=== PATIENT | male | born 1990 | race Caucasian/White ===

== ENCOUNTER → 2020-03-13 12:36 | Outpatient (BNVA) | payer OTHER, SELFPAY | PROVIDERS: PCP Nurse Practitioner Family; Referring Provider Nurse Practitioner Family; Visit Provider Nurse Practitioner | DX: Z76.89 Persons encountering health services in other specified circumstances (principal) ==

== ENCOUNTER 2020-05-02 16:58 | Outpatient (REF) | payer OTHER, SELFPAY ==
--- NOTE | 2020-05-02 17:04 | XR_ITS ---
EXAMINATION: XR HAND, LEFT CLINICAL INFORMATION: Crush injury left thumb. COMPARISON: None TECHNIQUE: PA, lateral, and oblique views of the left hand. FINDINGS: The bones and soft tissues are normal. No fracture. Alignment is anatomic. Joint spaces are maintained. No erosions or soft tissue calcifications. XR/XR hand LT min 3V IMPRESSION: Unremarkable left thumb exam. Especially no fracture seen.
== END 2020-05-02 16:59 | disposition home or self-care (01) ==
LOC: HO.HMGCX 16:58
PROVIDERS: PCP Nurse Practitioner Family; Visit Provider Hospitalist
DX: S67.02XA Crushing injury of left thumb, initial encounter (principal)
CPT/HCPCS: 73130

== ENCOUNTER 2021-08-16 04:21 | Day surgery (SDC) | payer OTHER, SELFPAY ==
[2021-08-16] VITALS (19 sets, daily range): BP systolic 107–146; BP diastolic 52–95; PULSE 53–72; RESP 16–20; TEMP 36.3–37.1; O2SAT 96–100; BMI 22.9
--- NOTE | ~2021-08-16 | CT_ITS ---
EXAMINATION: CT ABDOMEN AND PELVIS WITH CONTRAST CLINICAL INFORMATION: Right lower quadrant pain. Rule out appendicitis. COMPARISON: 07/18/2019 TECHNIQUE: Multidetector volumetric images were obtained from the superior aspect of the liver through the pubic symphysis following administration 85 mL of Omnipaque 350 intravenous contrast. Sagittal and coronal reformatted images were obtained on the technologist's workstation. Oral contrast: No This CT examination was performed using dose optimization techniques as appropriate, variously including the following: *Automated exposure control *Adjustment of mA and/or kV according to patient size (this includes techniques or standardized protocols for targeted exams where dose is matched to indication/reason for exam; i.e. extremities or head) *Use of iterative reconstruction technique DLP: 478 mGy-cm FINDINGS: LUNG BASES: Minimal dependent atelectasis. LIVER, GALLBLADDER, AND BILIARY TREE: The liver is normal in size, shape, and attenuation. No focal hepatic lesion or biliary ductal dilatation is present. The gallbladder is unremarkable with no evidence of radiopaque gallstones, gallbladder wall thickening, or obvious pericholecystic inflammatory changes. PANCREAS: Unremarkable. SPLEEN: Unremarkable. ADRENAL GLANDS: Unremarkable. KIDNEYS AND URETERS: The kidneys are normal in size, shape, and attenuation. No hydronephrosis, hydroureter, or calculi seen. No perinephric stranding. BLADDER: Unremarkable. GASTROINTESTINAL TRACT: Stomach, small bowel, and colon are normal in caliber. No bowel wall thickening or surrounding inflammatory changes. Appendix is normal. No intraperitoneal free fluid or free air. Moderate stool volume. ABDOMINAL WALL: No significant hernia is appreciated. LYMPH NODES: Normal. VASCULAR: Unremarkable. PELVIC VISCERA: The prostate and seminal vesicles are unremarkable. OSSEOUS STRUCTURES: Unremarkable. CT/CT abdomen pelvis w con IMPRESSION: No acute abnormalities are identified in the abdomen and pelvis to correlate with the patient's symptoms. Normal appendix. Moderate volume of stool in the colon.
[2021-08-16 05:01] LABS: Basophils Percent Auto 0.5 % (0-2); Eosinophils Absolute Auto 0.1 X10*3/uL (0.0-0.4); Eosinophils Percent Auto 1.1 % (0-4); Hematocrit 39.3 % (42.0-52.0); Hemoglobin 13.8 g/dl (14.0-18.0); Imm Gran Abs Auto 0.02 X10*3/uL (0.00-0.03); Imm Gran Pct Auto 0.3 % (0.0-0.4); Lymphocytes Absolute Auto 1.9 X10*3/uL (1.2-4.9); Lymphocytes Percent Auto 29.6 % (20-40); MANUAL DIFF FLAG NO; Mean Corpuscular HGB Conc 35.1 g/dl (31.0-36.0); Mean Corpuscular Hemoglobin 29.9 pg (27.0-33.0); Mean Corpuscular Volume 85.1 fL (80.0-98.0); Monocytes Absolute Auto 0.5 X10*3/uL (0.1-1.2); Monocytes Percent Auto 7.5 % (2-11); Platelet Count 257 X10*3/uL (160-400); Red Blood Count 4.62 X10*6/uL (4.60-5.80); Red Cell Distribution Width 11.9 % (11.0-16.0); White Blood Count 6.5 X10*3/uL (4.8-10.8)
--- NOTE | 2021-08-16 05:02 | PC.NURSE ---
Assumed care of pt Pt c/o umbilical abdominal pain radiating to RLQ. Per pt, woke him up from his sleep around 0100 today. Pt has nausea but denies any vomiting/diarrhea/fevers Per pt, last ate last night and only been sipping on water overnight Will continue to monitor
[2021-08-16 05:18] LABS: Alanine Aminotransferase 73 U/L (0-40); Albumin Level 4.3 g/dL (3.5-5.0); Alkaline Phosphatase 74 U/L (39-117); Anion Gap 14 (12-20); Aspartate Amino Transferase 31 U/L (5-37); Bilirubin Total 0.6 mg/dL (0.0-1.0); Blood Urea Nitrogen 8 mg/dL (9-16); Calcium 8.9 mg/dL (8.4-10.2); Carbon Dioxide 26 mmol/L (22-29); Chloride 98 mmol/L (96-108); Creatinine Clr Calc Pharmacy 125.4; Estimated Glomerular Filt Rate > 60; Glucose Random 105 mg/dL (60-115); Lipase 7 U/L (8-78); Potassium 3.7 mmol/L (3.3-5.1); Sodium 134 mmol/L (135-145); Total Protein 6.6 g/dL (6.5-8.0)
--- NOTE | 2021-08-16 05:50 | ED.ABDPAIN ---
HPI - Abdominal Pain General Chief Complaint: Abdominal Pain Stated Complaint: stomach pain, nausea Time Seen by Provider: 08/16/21 05:35 Source: patient Mode of arrival: ambulatory Limitations: no limitations History of Present Illness HPI narrative: 30-year-old male who presents emergency department for evaluation of abdominal pain. The patient states the pain came on suddenly at 02:00 hours and woke him up from sleep. The patient points to his umbilical area when asked to localize the pain. He states pain is a constant, dull pain. The pain is 8/10. The pain is worse with movement. Pain is associated with nausea but no vomiting. He denied fever. He states he did have chills this morning. He denied sore throat, cough, shortness of breath, dyspnea on exertion. Denied any changes bowel movements. He denied changes urine. This is 1st episode of this type of pain. Patient states that he has had 2 COVID-19 Moderna vaccinations. Related Data Home Medications Medication Instructions Recorded Confirmed carbamazepine 200 mg 200 mg PO 02/27/20 05/02/20 tablet,extended release,12 hr wheat dextrin 5 gram/7.4 gram oral g PO BID-TID g 03/12/20 05/02/20 powder (Benefiber Healthy Shape) Previous Rx's Medication Instructions Recorded cephalexin 500 mg capsule (Keflex) 500 mg PO TID 7 Days #21 cap 05/02/20 oxycodone-acetaminophen 10 mg-325 1 tab PO Q6H PRN #15 tab 05/02/20 mg tablet (Percocet) doxycycline hyclate 100 mg capsule 100 mg PO BID 10 Days #20 cap 05/07/20 naproxen 500 mg tablet 500 mg PO BID PRN #60 tab 05/07/20 Allergies Allergy/AdvReac Type Severity Reaction Status Date / Time bee pollen [BEE STINGS] Allergy Severe ANAPHYLAXIS Verified 08/16/21 04:32 gluten [GLUTEN] Allergy Severe ANAPHYLAXIS Verified 08/16/21 04:32 Gluten Allergy Unknown Anaphylaxis Verified 08/16/21 04:32 Sulfa (Sulfonamide Allergy Unknown ANAPHYLAXIS Verified 08/16/21 04:32 Antibiotics) [SULFA (SULFONAMIDE ANTIBIOTICS)] benztropine [From COGENTIN] AdvReac Mild URINARY Verified 08/16/21 04:32 RETENTION Bee Stings Allergy Unknown Anaphylaxis Uncoded 08/16/21 04:32 bees Allergy Unknown anaphylaxis Uncoded 08/16/21 04:32 Sulfamethoxazole Allergy Unknown Anaphylaxis Uncoded 08/16/21 04:32 Review of Systems Review of Systems Yes all other systems are reviewed and are negative [facility] Past Medical History [facility] Narrative: Past medical history: Celiac disease, seizure disorder. Past surgical history: None. Social history: He denies tobacco use. He drinks alcohol 2 times a week, he drinks 1 or 2 rum and Cokes. He denies drug use Medical History Epilepsy Surgical History History of esophagogastroduodenoscopy (EGD) Hx of colonoscopy Family History Family History Mother Hypertension Father Epilepsy Sister No problems noted. Son No problems noted. 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 Physical Exam ED Vital Signs: Vital Signs - 24 hr 08/16/21 04:27 08/16/21 06:28 Temperature 98.8 F Pulse Rate 72 Respiratory Rate 18 16 Blood Pressure 140/81 H 107/52 L Pulse Oximetry 99 99 BMI result Body Mass Index 22.9 Const General: cooperative and no acute distress Orientation/consciousness: oriented to person and oriented to place Limitations: no limitations [facility] Head: Yes normal to inspection, Yes normocephalic and Yes atraumatic Ears: external ears normal General nose exam: Normal external nose present Face and sinus: Yes normal facial exam Mouth: Normal oral and palatal mucosa present Throat: Yes posterior oropharynx normal Eyes General: appearance normal, both eyes and all related structures Pupils: Equal, round and reactive pupils present Neck Neck: Yes normal visual inspection, Yes no lymphadenopathy, Yes trachea midline and Yes supple Chest Chest palpation & inspection: normal inspection of the chest and normal palpation of entire chest wall Resp Effort & Inspection: normal respiratory effort and able to speak in complete sentences Auscultation: clear to auscultation bilaterally Cardio Rate: regular rate Rhythm: regular rhythm Heart sounds: S1 normal heart sound present, S2 normal heart sound present and no murmurs GI Inspection: Yes normal to inspection Palpation (GI): Soft to palpation, Tenderness to palpation present (GI) in the RLQ (Moderate) and no guarding Auscultation: normal bowel sounds General: Yes no CVA tenderness Back/Spine/Pelvis Back: no CVA tenderness Skin General skin exam: no rashes or lesions noted Neuro General: oriented to person and oriented to place Cranial nerves: Yes CN's II-XII intact bilaterally and Yes Equal, round and reactive pupils present Cognition (Neuro): normal cognition Motor exam (neuro): 5/5 motor strength present throughout Extrem General: Yes normal to inspection Psych Appearance: grossly normal Speech and movement: Normal speech and movement present Affect: normal affect Attitude: cooperative Thought process: Normal thought process present Thought content: Normal thought content present Course Course Course Narrative: 30-year-old male who presents emergency department for evaluation of sudden onset periumbilical pain at 02:00 hours, the pain woke him from sleep, the pain in his 8/10 at its worst. This is the patient's 1st episode of this type of pain. Vital signs were unremarkable. Physical examination did reveal very localize right lower quadrant tenderness. Differential includes but is not limited to acute appendicitis, diverticulitis, ureteral stone, pancreatitis. Did order laboratory evaluation on the patient. Patient was also ordered to get normal saline IV x1 L, Toradol 15 mg IV and Zofran 4 mg IV. I also ordered a CT scan of the abdomen pelvis with IV contrast to rule out further evaluate the patient's pain. 0554: Laboratory evaluation: CBC was normal. Sodium low 134, ALT elevated 73, lipase normal. 0700: CT scan of the abdomen pelvis with IV contrast did not reveal any acute abnormalities, the radiologist felt the appendix was normal. Patient did feel better after the above treatment. Repeat physical examination however did reveal significant right lower quadrant tenderness and referred tenderness with palpation/release of the left lower quadrant. Given this finding, I am still concerned the patient may have appendicitis. I did discuss the patient's case with the covering surgeon, Dr. Estrada who agreed to see the patient in the emergency department. At the end of my shift, the patient's care was turned over to my colleague, Dr. Christina Lilly. MDM - Abdominal Pain Lab Data Result diagrams: 08/16/21 04:55 08/16/21 04:55 Labs: Lab Results 08/16/21 08/16/21 08/16/21 Range/Units 04:55 04:55 06:28 WBC 6.5 (4.8-10.8) X10*3/uL RBC 4.62 (4.60-5.80) X10*6/uL Hgb 13.8 L (14.0-18.0) g/dl Hct 39.3 L (42.0-52.0) % MCV 85.1 (80.0-98.0) fL MCH 29.9 (27.0-33.0) pg MCHC 35.1 (31.0-36.0) g/dl RDW 11.9 (11.0-16.0) % Plt Count 257 (160-400) X10*3/uL MPV 9.0 L (9.4-12.4) fL Immature Gran % (Auto) 0.3 (0.0-0.4) % Neut % (Auto) 61.0 (45-73) % Lymph % (Auto) 29.6 (20-40) % [place] % (Auto) 7.5 (2-11) % Eos % (Auto) 1.1 (0-4) % Baso % (Auto) 0.5 (0-2) % Lymph # (Auto) 1.9 (1.2-4.9) X10*3/uL [place] # (Auto) 0.5 (0.1-1.2) X10*3/uL Eos # (Auto) 0.1 (0.0-0.4) X10*3/uL Baso # (Auto) 0.0 (0.0-0.2) X10*3/uL Abs Immat Gran (auto) 0.02 (0.00-0.03) X10*3/uL Absolute Neuts (auto) 4.0 (2.0-8.3) x10*3/uL Absolute Nucleated RBC 0.000 (0.0-0.012) X10*3/uL Nucleated RBC % (auto) 0.0 (0.0-0.2) /100WBC Sodium 134 L (135-145) mmol/L Potassium 3.7 (3.3-5.1) mmol/L Chloride 98 (96-108) mmol/L Carbon Dioxide 26 (22-29) mmol/L Anion Gap 14 (12-20) BUN 8 L (9-16) mg/dL Creatinine 0.90 (0.5-1.4) mg/dL Estim Creat Clear Calc 125.4 Estimated GFR > 60 Random Glucose 105 (60-115) mg/dL Calcium 8.9 (8.4-10.2) mg/dL Total Bilirubin 0.6 (0.0-1.0) mg/dL AST 31 (5-37) U/L ALT 73 H (0-40) U/L Alkaline Phosphatase 74 (39-117) U/L Total Protein 6.6 (6.5-8.0) g/dL Albumin 4.3 (3.5-5.0) g/dL Lipase 7 L (8-78) U/L Urine Color Urine Appearance Urine pH (5.0-8.0) Ur Specific [place] (1.005-1.025) Urine Protein (NEG-TRACE) MG/DL Urine Glucose (UA) (NEG) MG/DL Urine Ketones (NEG) MG/DL Urine Blood (NEG) Urine Nitrite (NEG) Ur Leukocyte Esterase (NEG) COVID-19 (ROXANNE) Negative (Negative) COVID-19 Clin Com See Note 08/16/21 Range/Units 07:01 WBC (4.8-10.8) X10*3/uL RBC (4.60-5.80) X10*6/uL Hgb (14.0-18.0) g/dl Hct (42.0-52.0) % MCV (80.0-98.0) fL MCH (27.0-33.0) pg MCHC (31.0-36.0) g/dl RDW (11.0-16.0) % Plt Count (160-400) X10*3/uL MPV (9.4-12.4) fL Immature Gran % (Auto) (0.0-0.4) % Neut % (Auto) (45-73) % Lymph % (Auto) (20-40) % [place] % (Auto) (2-11) % Eos % (Auto) (0-4) % Baso % (Auto) (0-2) % Lymph # (Auto) (1.2-4.9) X10*3/uL [place] # (Auto) (0.1-1.2) X10*3/uL Eos # (Auto) (0.0-0.4) X10*3/uL Baso # (Auto) (0.0-0.2) X10*3/uL Abs Immat Gran (auto) (0.00-0.03) X10*3/uL Absolute Neuts (auto) (2.0-8.3) x10*3/uL Absolute Nucleated RBC (0.0-0.012) X10*3/uL Nucleated RBC % (auto) (0.0-0.2) /100WBC Sodium (135-145) mmol/L Potassium (3.3-5.1) mmol/L Chloride (96-108) mmol/L Carbon Dioxide (22-29) mmol/L Anion Gap (12-20) BUN (9-16) mg/dL Creatinine (0.5-1.4) mg/dL Estim Creat Clear Calc Estimated GFR Random Glucose (60-115) mg/dL Calcium (8.4-10.2) mg/dL Total Bilirubin (0.0-1.0) mg/dL AST (5-37) U/L ALT (0-40) U/L Alkaline Phosphatase (39-117) U/L Total Protein (6.5-8.0) g/dL Albumin (3.5-5.0) g/dL Lipase (8-78) U/L Urine Color STRAW Urine Appearance CLEAR Urine pH 7.0 (5.0-8.0) Ur Specific [place] <= 1.005 (1.005-1.025) Urine Protein NEG (NEG-TRACE) MG/DL Urine Glucose (UA) NEG (NEG) MG/DL Urine Ketones NEG (NEG) MG/DL Urine Blood NEG (NEG) Urine Nitrite NEG (NEG) Ur Leukocyte Esterase NEG (NEG) COVID-19 (ROXANNE) (Negative) COVID-19 Clin Com Discharge Plan Discharge Clinical Impression: Abdominal pain Patient Disposition: Still a Patient Prescriptions: No Action carbamazepine 200 mg tablet extended release 12 hr 200 mg PO 0RF cephalexin [Keflex] 500 mg capsule 500 mg PO TID 7 Days Qty: 21 0RF oxycodone-acetaminophen [Percocet] 10-325 mg tablet 1 tab PO Q6H PRN (Reason: pain) Qty: 15 0RF doxycycline hyclate 100 mg capsule 100 mg PO BID 10 Days Qty: 20 0RF naproxen 500 mg tablet 500 mg PO BID PRN (Reason: pain) Qty: 60 0RF Benefiber Healthy Shape 5 gram/7.4 gram powder PO BID-TID 0RF
[2021-08-16] MEDS: Ketorolac Tromethamine 15 MG/ML VIAL IVPUSH (05:59)
[2021-08-16] MEDS: 0.9 % Sodium Chloride 1,000 ML 999 ML IV (05:59)
[2021-08-16] MEDS: ondansetron HCL 4 MG/2 ML VIAL IVPUSH ×3 (05:59→13:55)
[2021-08-16] MEDS: iohexoL 350 MG/ML 100 ML INFUS..BTL IV (06:21)
[2021-08-16 06:48] LABS: COVID-19 Test Negative (Negative)
[2021-08-16 07:08] LABS: Appearance Urine CLEAR; Color Urine STRAW; Glucose Urine UA NEG (NEG); Leukocyte Esterase Urine NEG (NEG); Nitrite Urine NEG (NEG); Specific Gravity - Urine <= 1.005 (1.005-1.025); Urine Blood NEG (NEG); Urine Ketones NEG (NEG); Urine Protein NEG (NEG-TRACE)
[2021-08-16] MEDS: Morphine Sulfate 4 MG/ML CARTRIDGE IVPUSH (07:51)
--- NOTE | 2021-08-16 07:53 | P.HPGS_ITS ---
History of Present Illness History of Present Illness Date of Service: 08/16/21 Chief complaint: stomach pain, nausea Narrative: Jesus Lauren is a 30 year old male presemting with a sudden onset of abdominal pain in a periumbilical region at 2 am this morning. The pain has increased in severity and was associated with nausea without vomiting. He also reports chills but is unsure of fever. He denies a previous history of similar pain. He denies anorexia, diarrhea or constipation. Workup in the ED revealed pain over McBurney's point, Rovsing's sign, and rebound tenderness in the RLQ. WBC normal, CT abd/pelvis with normal appendix. Review of Systems Constitutional: Constitutional: Denies chills, Denies fever(s), Denies headache(s) and Denies poor appetite ENT: Denies dizziness and Denies headache(s) Cardiovascular: Cardiovascular: Denies chest pain, Denies rapid heart rate, Denies palpitations and Denies slow heart rate Respiratory: Respiratory: Denies chest congestion, Denies cough, Denies pain on inspiration and Denies wheezing Gastrointestinal: Gastrointestinal: Reports abdominal pain, Denies bloating, Denies change in stool character, Denies constipation, Denies diarrhea, Reports nausea, Denies vomiting and Denies hematemesis Musculoskeletal: Musculoskeletal: Denies back pain, Denies arthralgias, Denies joint swelling and Denies numbness Integumentary/Breasts: Skin/Breast: Denies change in pigmentation, Denies erythema and Denies rash Neurologic: Denies dizziness, Denies headache(s) and Denies numbness Psychiatric: Psychiatric: Denies anxiety and Denies depression Endocrine: Endocrine: Denies palpitations Hematologic/Lymphatic: Hematologic/Lymphatic: Denies easy bleeding, Denies easy bruising and Denies lymphadenopathy Allergic/Immunologic: Allergic/Immunologic: Denies wheezing PMFSH Past Medical History Medical History Epilepsy Family History Family History Mother Hypertension Father Epilepsy Sister No problems noted. Son No problems noted. 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 Meds Allergies Allergy/AdvReac Type Severity Reaction Status Date / Time bee pollen [BEE STINGS] Allergy Severe ANAPHYLAXIS Verified 08/16/21 04:32 gluten [GLUTEN] Allergy Severe ANAPHYLAXIS Verified 08/16/21 04:32 Gluten Allergy Unknown Anaphylaxis Verified 08/16/21 04:32 Sulfa (Sulfonamide Allergy Unknown ANAPHYLAXIS Verified 08/16/21 04:32 Antibiotics) [SULFA (SULFONAMIDE ANTIBIOTICS)] benztropine [From COGENTIN] AdvReac Mild URINARY Verified 08/16/21 04:32 RETENTION Bee Stings Allergy Unknown Anaphylaxis Uncoded 08/16/21 04:32 bees Allergy Unknown anaphylaxis Uncoded 08/16/21 04:32 Sulfamethoxazole Allergy Unknown Anaphylaxis Uncoded 08/16/21 04:32 Home Medications Medication Instructions Recorded Confirmed Last Taken Type carbamazepine 200 mg 200 mg PO 02/27/20 05/02/20 Unknown History tablet,extended release,12 hr wheat dextrin 5 gram/7.4 gram oral g PO BID-TID g 03/12/20 05/02/20 Unknown History powder (Benefiber Healthy Shape) Physical Exam Vital Signs: Vital Signs: Last Vital Signs Temp 98.8 F 08/16/21 04:27 Pulse 72 08/16/21 04:27 Resp 16 08/16/21 06:28 BP 107/52 L 08/16/21 06:28 Pulse Ox 99 08/16/21 06:28 BMI result Body Mass Index 22.9 Const: General: cooperative, comfortable and well developed Nutritional Appearance: well nourished Orientation/consciousness: patient oriented x3 Eyes: Sclerae: sclerae normal EOM: EOMs intact bilaterally Neck: Neck: Yes normal visual inspection Resp: Effort & Inspection: normal respiratory effort, no cough, no respiratory distress and no stridor Cardio: Jugular venous distension: no JVD GI: Inspection: Yes normal to inspection Palpation (GI): Soft to palpation, Tenderness to palpation present (GI) in the RLQ, at McBurney's point, psoas sign positive, with rebound tenderness and Rovsing's sign positive, no guarding, not rigid, No hepatosplenomegaly present and no masses Percussion: Yes normal to percussion Auscultation: normal bowel sounds Rectal Exam - Male: Yes deferred Skin: General skin exam: dry skin Rashes: no rashes Neuro: General: patient oriented x3 and no focal motor deficits Extrem: General: Yes full ROM and Yes no clubbing, cyanosis or edema Psych: Appearance: grossly normal Results Results Labs: Short CBC 08/16/21 Range/Units 04:55 WBC 6.5 (4.8-10.8) X10*3/uL Hgb 13.8 L (14.0-18.0) g/dl Hct 39.3 L (42.0-52.0) % Plt Count 257 (160-400) X10*3/uL BMP 08/16/21 04:55 Sodium 134 L Potassium 3.7 Chloride 98 Carbon Dioxide 26 BUN 8 L Creatinine 0.90 Calcium 8.9 Liver Function 08/16/21 Range/Units 04:55 Total Bilirubin 0.6 (0.0-1.0) mg/dL AST 31 (5-37) U/L ALT 73 H (0-40) U/L Alkaline Phosphatase 74 (39-117) U/L Albumin 4.3 (3.5-5.0) g/dL Urine 08/16/21 Range/Units 07:01 Urine Color STRAW Urine Appearance CLEAR Urine pH 7.0 (5.0-8.0) Ur Specific [place] <= 1.005 (1.005-1.025) Urine Protein NEG (NEG-TRACE) MG/DL Urine Glucose (UA) NEG (NEG) MG/DL Assessment and Plan (1) Abdominal pain: Qualifiers: Abdominal location: right lower quadrant Qualified Code(s): R10.31 - Right lower quadrant pain Status: Acute (2) Acute appendicitis: Status: Acute Plan 30-year-old male patient presenting with complaints of abdominal pain in the right lower quadrant starting in a periumbilical region. Patient's workup was negative however his clinical examination is definitely significant for loc alized rebound with a positive Rovsing sign highly suggestive of early appendicitis. Patient was given the option of non operative management with antibiotics versus surgery (laparoscopic or possible open appendectomy). He is concerned about the severity of his pain and wishes to proceed with a laparoscopic or possible open appendectomy. After discussion of the procedure, risks, and alternatives, he consents the surgery. He will be added onto the operative schedule today. I will start him on antibiotics in meantime. Quality Stroke Does the patient have a stroke diagnosis?: No VTE Prior VTE?: No VTE Risk Level:: Surgical - moderate VTE Device Contraindication: N/A - Device Ordered VTE Drug Contraindication: Treatment Not Indicated Procedures Date of Service Date of Service: 08/16/21
[2021-08-16] MEDS: Piperacillin Sodium/Tazobactam 3.375 GM in 0.9 % Sodium Chloride 50 ML IV (08:26)
--- NOTE | 2021-08-16 08:33 | PHA.MEDREC ---
Pharmacy Consult ? Medication Reconciliation Pharmacy has completed the medication reconciliation.
[2021-08-16] MEDS: carBAMazepine ER 200 MG TAB.ER.12H 600 MG PO (08:50)
[2021-08-16] MEDS: Lactated Ringers 1,000 ML 100 ML IVCONT ×2 (09:19→16:40)
[2021-08-16] MEDS: HYDROmorphone HCl 0.5 MG/0.5 ML SYRINGE IVPUSH ×3 (10:46→21:41)
--- NOTE | 2021-08-16 11:34 | PC.NURSE ---
patient a&ox3, vss, pt c/o 09/29 rt lower quad abd pain, pt states that the pain meds helped reduce his pain to a 5, pt medicated for nausea per his request, ivf running per order, surgeon came to speak with patient, pt states his is on her way, call donis within reach, will continue to monitor.
--- NOTE | 2021-08-16 12:09 | HO.ANESPROP2 ---
[facility] Active Problems Active Problems: All Active Problems (Updated 08/16/21 @ 07:57 by Gustavo Estrada MD) Acute appendicitis (Acute) Abdominal pain (Acute) Subungual hematoma of digit of hand (Acute) Acute paronychia of left thumb (Acute) Crushing injury of left thumb (Acute) History of Clostridioides difficile colitis (Acute) Right sided abdominal pain (Acute) Irritable bowel syndrome with both constipation and diarrhea (Acute) Celiac disease (Acute) Concussion (Acute) Past Medical History Medical History Epilepsy Family History Family History Mother Hypertension Father Epilepsy Sister No problems noted. Son No problems noted. 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 Meds Allergies Allergy/AdvReac Type Severity Reaction Status Date / Time bee pollen [BEE STINGS] Allergy Severe ANAPHYLAXIS Verified 08/16/21 04:32 gluten [GLUTEN] Allergy Severe ANAPHYLAXIS Verified 08/16/21 04:32 Gluten Allergy Unknown Anaphylaxis Verified 08/16/21 04:32 Sulfa (Sulfonamide Allergy Unknown ANAPHYLAXIS Verified 08/16/21 04:32 Antibiotics) [SULFA (SULFONAMIDE ANTIBIOTICS)] benztropine [From COGENTIN] AdvReac Mild URINARY Verified 08/16/21 04:32 RETENTION Bee Stings Allergy Unknown Anaphylaxis Uncoded 08/16/21 04:32 bees Allergy Unknown anaphylaxis Uncoded 08/16/21 04:32 Sulfamethoxazole Allergy Unknown Anaphylaxis Uncoded 08/16/21 04:32 Active Medications: Current Medications Hydromorphone HCl (Hydromorphone Hcl 0.5 Mg/0.5 Ml Syringe) 0.5 mg IVPUSH Q3H PRN; Protocol PRN Reason: Pain, Severe (Pain Scale 7-10) Last Admin: 08/16/21 10:46 Dose: 0.5 mg Documented by: Lactated Ringer's (Lr) 1,000 mls @ 100 mls/hr IVCONT .Q10H [facility] Last Admin: 08/16/21 09:19 Dose: 100 mls/hr Documented by: Acetaminophen (Ofirmev) 1,000 mg in 100 mls @ 400 mls/hr IV Q6H [facility] Last Infusion: 08/16/21 09:07 Dose: Infused Documented by: Piperacillin Sod/Tazobactam (Sod 3.375 gm/ Sodium Chloride) 50 mls @ 100 mls/hr IV Q6H [facility] Last Infusion: 08/16/21 08:56 Dose: Infused Documented by: Ondansetron HCl (Ondansetron Hcl 4 Mg/2 Ml Vial) 4 mg IVPUSH QID PRN PRN Reason: Nausea Last Admin: 08/16/21 11:30 Dose: 4 mg Documented by: Pharmacy Consult (Consult Rx Perform Med Rec) 1 each MISCELLANE ONCE PRN PRN Reason: Consult order Home Medications Medication Instructions Recorded Confirmed Last Taken Type carbamazepine 200 mg 600 mg PO DAILY@0600 02/27/20 08/16/21 08/15/21 History tablet,extended release,12 hr carbamazepine 200 mg 800 mg PO DAILY@1800 08/16/21 08/16/21 08/15/21 History tablet,extended release,12 hr Exam Exam Date and Time: August 16, 2021 1209 Height,Weight and Vital Signs: Height 5 ft 10 in Weight 72.575 kg Last Vital Signs Temp 98.2 F 08/16/21 11:32 Pulse 53 08/16/21 11:32 Resp 16 08/16/21 11:32 BP 109/57 L 08/16/21 11:32 Pulse Ox 98 08/16/21 11:32 Pertinent Lab Results Pertinent Lab Results: Laboratory Tests 08/16/21 08/16/21 08/16/21 04:55 04:55 06:28 WBC 6.5 RBC 4.62 Hgb 13.8 L Hct 39.3 L MCV 85.1 MCH 29.9 MCHC 35.1 RDW 11.9 Plt Count 257 MPV 9.0 L Immature Gran % (Auto) 0.3 Neut % (Auto) 61.0 Lymph % (Auto) 29.6 [place] % (Auto) 7.5 Eos % (Auto) 1.1 Baso % (Auto) 0.5 Lymph # (Auto) 1.9 [place] # (Auto) 0.5 Eos # (Auto) 0.1 Baso # (Auto) 0.0 Abs Immat Gran (auto) 0.02 Absolute Neuts (auto) 4.0 Absolute Nucleated RBC 0.000 Nucleated RBC % (auto) 0.0 Sodium 134 L Potassium 3.7 Chloride 98 Carbon Dioxide 26 Anion Gap 14 BUN 8 L Creatinine 0.90 Estim Creat Clear Calc 125.4 Estimated GFR > 60 Random Glucose 105 Calcium 8.9 Total Bilirubin 0.6 AST 31 ALT 73 H Alkaline Phosphatase 74 Total Protein 6.6 Albumin 4.3 Lipase 7 L Urine Color Urine Appearance Urine pH Ur Specific Briggs Urine Protein Urine Glucose (UA) Urine Ketones Urine Blood Urine Nitrite Ur Leukocyte Esterase COVID-19 (ROXANNE) Negative COVID-19 Clin Com See Note 08/16/21 07:01 WBC RBC Hgb Hct MCV MCH MCHC RDW Plt Count MPV Immature Gran % (Auto) Neut % (Auto) Lymph % (Auto) [place] % (Auto) Eos % (Auto) Baso % (Auto) Lymph # (Auto) [place] # (Auto) Eos # (Auto) Baso # (Auto) Abs Immat Gran (auto) Absolute Neuts (auto) Absolute Nucleated RBC Nucleated RBC % (auto) Sodium Potassium Chloride Carbon Dioxide Anion Gap BUN Creatinine Estim Creat Clear Calc Estimated GFR Random Glucose Calcium Total Bilirubin AST ALT Alkaline Phosphatase Total Protein Albumin Lipase Urine Color STRAW Urine Appearance CLEAR Urine pH 7.0 Ur Specific Briggs <= 1.005 Urine Protein NEG Urine Glucose (UA) NEG Urine Ketones NEG Urine Blood NEG Urine Nitrite NEG Ur Leukocyte Esterase NEG COVID-19 (ROXANNE) COVID-19 Clin Com Airway Mallampati Class: II TM Dist: >3cm Neck ROM: Full Assessment and Plan Assessment Anesthesia Assessment: Anesthesia Plan Discussed and Chart Reviewed Final Anesthetic Review Family History of Problems with Anesthesia: No History of Problems with Anesthesia: No NPO: Yes ASA Class: II and Emergency Final Preanesthetic Review: No Changes in Pt Med Stat, Meds/Allgs Chart Reviewed, Consent Obtained/Reviewed and Anes Risks/Benef Reviewed Patient Risk: Intermediate Procedure Risk: Intermediate Anesthetic Plan Anesthetic Plan: GA Disposition: Standard PACU
--- NOTE | 2021-08-16 12:22 | PC.NURSE ---
pt changed into hospital gown, arrived at bedside to take belongings home, tech completed belongings list w pt, flds restarted, pt transporting to OR.
--- NOTE | 2021-08-16 13:30 | P.OP_ITS ---
Operative Note Operative Note Date of Service: 08/16/21 Narrative: Preoperative diagnosis: Acute appendicitis Postoperative diagnosis: Same Procedure: Laparoscopic appendectomy Surgeon: Gustavo Estrada MD Supervisor Waterproofing:none Anesthesia: General endotracheal Indications for procedure:30 year old male patient presenting with complaints of abdominal pain in the periumbilical and right lower quadrant abdomen. Patient's workup revealed negative WBC and negative CT however his examination revealed tenderness in the right lower quadrant over McBurney's point with localized rebound suggestive of acute appendicitis. Patient was given the option of antibiotics verses laparoscopic appendectomy and decided to proceed with laparoscopic appendectomy. Operative findings: Long appendix with the tip that seemed moderately thickened and adherent to the cecum suggestive of early appendicitis Specimen: Appendix Estimated blood loss: 2 mL Complications: None Procedure details: Patient was brought to the OR and placed in a supine position. After administering general anesthesia the patient's abdomen was prepped with ChloraPrep and draped in a sterile fashion. A surgical time-out was called and consent confirmed. Patient received preoperative antibiotics and Venodyne boots were in place. Local anesthesia consisting of 0.75% Sensorcaine with epinephrine was infiltrated in periumbilical region. A 5 mm incision was made below the umbilicus and carried down through subcutaneous tissue. A Veress needle was then inserted while elevating abdominal cavity with towel clips. After a positive drop test the abdomen was insufflated to a pressure of 15 mm of mercury. The Veress needle was removed and a 5 mm trocar inserted. The camera was then inserted in the abdomen explored. A 2nd 5 mm trocars placed in the lower midline. A 12 mm trocar was then placed in the left lower quadrant. The patient was then placed in a Trendelenburg position and rotated to the left. The appendix was identified in the right lower quadrant and brought up using blunt dissecting clamps. The mesentery of the appendix was then divided using the LigaSure. The appendiceal artery was cauterized and divided using the LigaSure. Dissection was continued down to the base of the cecum. An Endo-ANA stapler with a purple reload was then used to divide the appendix at the base with the cecum. The appendix was then placed in Endo-Catch bag and brought out through the left lower quadrant incision. Wounds were checked for hemostasis. CO2 was then evacuated from the abdominal cavity and all trocars removed. Fascia was closed in the left lower quadrant incision using a [id number] 0 Polysorb suture. Skin was closed at all incisions using a subcuticular 4-0 Polysorb suture. Steri-Strips 2 x 2 gauze and Tegaderm were then applied. The patient tolerated the procedure well. Sponge, instrument, needle counts reported as correct. The patient was transferred to PACU in stable condition.
[2021-08-16] MEDS: fentaNYL citrate/PF 100 MCG/2 ML VIAL 50 MCG IVPUSH (14:02)
[2021-08-16] MEDS: oxyCODONE HCl Immed Release 5 MG TABLET PO (16:48)
[2021-08-16] MEDS: carBAMazepine ER 200 MG TAB.ER.12H 800 MG PO (17:55)
[2021-08-17] VITALS: BP 105/53; PULSE 76; RESP 19; TEMP 36.4; O2SAT 98
[2021-08-17] MEDS: oxyCODONE HCl Immed Release 5 MG TABLET PO (01:52)
[2021-08-17] MEDS: Lactated Ringers 1,000 ML 100 ML IVCONT (01:52)
[2021-08-17 03:28] VITALS: BP 119/58; PULSE 76; RESP 18; TEMP 36.8; O2SAT 98
[2021-08-17] MEDS: HYDROmorphone HCl 0.5 MG/0.5 ML SYRINGE IVPUSH ×3 (04:17→14:10)
[2021-08-17] MEDS: carBAMazepine ER 200 MG TAB.ER.12H 600 MG PO (05:37)
[2021-08-17 07:09] VITALS: BP 120/69; PULSE 67; RESP 18; TEMP 36.3; O2SAT 98
--- NOTE | 2021-08-17 09:32 | HO.POSTANES ---
Post Anesthesia Evaluation Post Anesthesia Evaluation Vital Signs: Vital Signs Temp Pulse Resp BP Pulse Ox 08/17/21 07:09 97.4 F 67 18 120/69 98 08/17/21 03:28 98.3 F 76 18 119/58 L 98 08/17/21 00:00 97.6 F 76 19 105/53 L 98 08/16/21 21:42 65 20 107/58 L 08/16/21 21:41 20 Anesthesia: General Endotracheal-GETA Mental Status: Awake Pain Control: Satisfactory Nausea/Vomiting: None Hydration: Adequate Anesthesia-Related Issues: No Anes. Related Issues
[2021-08-17] MEDS: oxyCODONE HCl Immed Release 5 MG TABLET 10 MG PO (11:16)
--- NOTE | 2021-08-17 11:32 | MHC.CLN ---
NUTRITION PATIENT WITH DX CELIAC. HAS GLUTEN ALLERGY LISTED. ADDED GLUTEN-FREE TO DIET ORDER.
--- NOTE | 2021-08-17 11:33 | MHC.CM.PN ---
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 DISCHARGE PLAN HOME WIHT HIS NO SERVICES TRANSPORTATION FAMILY APPENDECTOMY, PCP FOR[facility]LY [facility]
--- NOTE | 2021-08-17 11:35 | PM.PNGS ---
Subjective Subjective Date of Service: 08/17/21 Interval history: Sore at incision sites- oxycodone 5mg not relieving. Tolerating diet. OOB and ambulating. Asking to go home. Physical Exam Vital Signs: Vital Signs: Last Vital Signs Temp 97.4 F 08/17/21 07:09 Pulse 67 08/17/21 07:09 Resp 18 08/17/21 07:09 BP 120/69 08/17/21 07:09 Pulse Ox 98 08/17/21 07:09 BMI result Body Mass Index 22.9 Const: General: comfortable, no acute distress and alert Orientation/consciousness: patient oriented x3 Resp: Effort & Inspection: normal respiratory effort GI: Inspection: No distended and Yes incision (dressings intact) Palpation (GI): Soft to palpation, Tenderness to palpation present (GI) (incisional), no guarding and not rigid Percussion: Yes normal to percussion Skin: General skin exam: no rashes or lesions noted Neuro: General: patient oriented x3 Extrem: General: Yes normal exam except as noted and Yes no clubbing, cyanosis or edema Objective Data Active Medications Carbamazepine (Carbamazepine Er 200 Mg Tab.Er.12h) 800 mg PO DAILY@1800 [facility] Last Admin: 08/16/21 17:55 Dose: 800 mg Documented by: SABINA Carbamazepine (Carbamazepine Er 200 Mg Tab.Er.12h) 600 mg PO DAILY@0600 [facility] Last Admin: 08/17/21 05:37 Dose: 600 mg Documented by: MARCK Hydromorphone HCl (Hydromorphone Hcl 0.5 Mg/0.5 Ml Syringe) 0.5 mg IVPUSH Q3H PRN; Protocol PRN Reason: Pain, Severe (Pain Scale 7-10) Last Admin: 08/17/21 08:41 Dose: 0.5 mg Documented by: ISABEL Lactated Ringer's (Lr) 1,000 mls @ 100 mls/hr IVCONT .Q10H [facility] Last Admin: 08/17/21 01:52 Dose: 100 mls/hr Documented by: MARCK Acetaminophen (Ofirmev) 1,000 mg in 100 mls @ 400 mls/hr IV Q6H [facility] Last Admin: 08/17/21 11:20 Dose: 400 mls/hr Documented by: ISABEL Ondansetron HCl (Ondansetron Hcl 4 Mg/2 Ml Vial) 4 mg IVPUSH QID PRN PRN Reason: Nausea Last Admin: 08/16/21 11:30 Dose: 4 mg Documented by: ANGELITA Oxycodone HCl (Oxycodone Hcl Immed Release 5 Mg Tablet) 5 mg PO Q6H PRN PRN Reason: Pain, Moderate (Pain Scale 4-6 Last Admin: 08/17/21 01:52 Dose: 5 mg Documented by: MARCK Oxycodone HCl (Oxycodone Hcl Immed Release 5 Mg Tablet) 10 mg PO Q4H PRN PRN Reason: Pain, Severe (Pain Scale 7-10) Last Admin: 08/17/21 11:16 Dose: 10 mg Documented by: ISABEL Pharmacy Consult (Consult Rx Perform Med Rec) 1 each MISCELLANE ONCE PRN PRN Reason: Consult order Labs CBC & Chem 7: 08/16/21 04:55 08/16/21 04:55 Procedures Date of Service Date of Service: 08/17/21 Progress Note: A&P Assessment and plan (1) Acute appendicitis: Status: Acute (2) S/P laparoscopic appendectomy: Status: Acute Plan 30 year old male admitted with acute appendicitis now POD #1 s/p lap appy. Doing well post op. Does c/o pain unrelieved by 5mg oxycodone. VSS. Abd exam with appropriate post op tenderness, dressings intact. Will adjust analgesics. If comfortable, stable for discharge to home today. Patient comfortable with plan. F/u in office. Fall Risk Details Current Medications: Current Medications Carbamazepine (Carbamazepine Er 200 Mg Tab.Er.12h) 800 mg PO DAILY@1800 [facility] Last Admin: 08/16/21 17:55 Dose: 800 mg Documented by: Carbamazepine (Carbamazepine Er 200 Mg Tab.Er.12h) 600 mg PO DAILY@0600 [facility] Last Admin: 08/17/21 05:37 Dose: 600 mg Documented by: Hydromorphone HCl (Hydromorphone Hcl 0.5 Mg/0.5 Ml Syringe) 0.5 mg IVPUSH Q3H PRN; Protocol PRN Reason: Pain, Severe (Pain Scale 7-10) Last Admin: 08/17/21 08:41 Dose: 0.5 mg Documented by: Lactated Ringer's (Lr) 1,000 mls @ 100 mls/hr IVCONT .Q10H [facility] Last Admin: 08/17/21 01:52 Dose: 100 mls/hr Documented by: Acetaminophen (Ofirmev) 1,000 mg in 100 mls @ 400 mls/hr IV Q6H [facility] Last Admin: 08/17/21 11:20 Dose: 400 mls/hr Documented by: Ondansetron HCl (Ondansetron Hcl 4 Mg/2 Ml Vial) 4 mg IVPUSH QID PRN PRN Reason: Nausea Last Admin: 08/16/21 11:30 Dose: 4 mg Documented by: Oxycodone HCl (Oxycodone Hcl Immed Release 5 Mg Tablet) 5 mg PO Q6H PRN PRN Reason: Pain, Moderate (Pain Scale 4-6 Last Admin: 08/17/21 01:52 Dose: 5 mg Documented by: Oxycodone HCl (Oxycodone Hcl Immed Release 5 Mg Tablet) 10 mg PO Q4H PRN PRN Reason: Pain, Severe (Pain Scale 7-10) Last Admin: 08/17/21 11:16 Dose: 10 mg Documented by: Pharmacy Consult (Consult Rx Perform Med Rec) 1 each MISCELLANE ONCE PRN PRN Reason: Consult order Time Spent With Patient Time: Total time spent is greater than 50% in coordination of care (as documented) at patient's floor/unit and/or counseling patient: Quality Stroke Does the patient have a stroke diagnosis?: No VTE Prior VTE?: No VTE Risk Level:: Surgical - moderate VTE Device Contraindication: N/A - Device Ordered VTE Drug Contraindication: Treatment Not Indicated
[2021-08-17 11:45] VITALS: BP 123/76; PULSE 69; RESP 18; TEMP 36.6; O2SAT 99
--- NOTE | 2021-08-17 12:46 | PM.DS ---
DS: Providers Provider Date of Service: 08/17/21 Primary care physician: Unknown Physician Attending physician on admission: Gustavo Estrada DS: Diagnosis Discharge Diagnosis (1) Acute appendicitis: Status: Acute (2) S/P laparoscopic appendectomy: Status: Acute DS: Summary Hospital Course Hospital Course: BRIEF HPI: Jesus Lauren is a 30 year old male presemting with a sudden onset of abdominal pain in a periumbilical region at 2 am this morning. The pain has increased in severity and was associated with nausea without vomiting. He also reports chills but is unsure of fever. He denies a previous history of similar pain. He denies anorexia, diarrhea or constipation. Workup in the ED revealed pain over McBurney's point, Rovsing's sign, and rebound tenderness in the RLQ. WBC normal, CT abd/pelvis with normal appendix. HOSPITAL COURSE: His workup was negative however his clinical examination is definitely significant for localized rebound with a positive Rovsing sign highly suggestive of early appendicitis. The patient was therefore admitted to the surgical service for further treatment of likely early acute appendicitis. Patient was given the option of non operative management with antibiotics versus surgery (laparoscopic or possible open appendectomy). He was added onto the operative schedule today. He was started on IVF, IV zosyn and kept NPO. On 08/16/21, a laparoscopic appendectomy was performed by Dr. Estrada without complication. Intraoperative findings included a long appendix with the tip that seemed moderately thickened and adherent to the cecum suggestive of early appendicitis. The patient tolerated the procedure well, completed routine recovery and was admitted for observation. The patient had an uncomplicated post operative course. On POD #1 he felt well and was tolerating a solid diet. His abdomen was benign with appropriate post op tenderness. His dressings were intact. He was comfortable pain castillo with oxycodone 10mg PO. He was ambulating without difficulty. He felt ready for discharge. He was discharged to home on 08/17/21 in stable condition. Status at Discharge Functional status at discharge: independent ambulation Overall status at discharge: patient is progressing back to baseline Time Spent with Patient Time attestation: Total time spent providing and/or coordinating discharge services: Discharge coordination time: Less than 30 minutes Quality: Stroke Does the patient have a stroke diagnosis?: No Physical Exam Vital Signs: Vital Signs: Last Vital Signs Temp 98 F 08/17/21 11:45 Pulse 69 08/17/21 11:45 Resp 18 08/17/21 11:45 BP 123/76 08/17/21 11:45 Pulse Ox 99 08/17/21 11:45 BMI result Body Mass Index 22.9 Const: General: comfortable, no acute distress and alert Orientation/consciousness: patient oriented x3 Resp: Effort & Inspection: normal respiratory effort GI: Inspection: No distended and Yes incision (dressings intact) Palpation (GI): Soft to palpation, Tenderness to palpation present (GI) (mild, incisional), no guarding and not rigid Skin: General skin exam: no rashes or lesions noted Neuro: General: patient oriented x3 Extrem: General: Yes no clubbing, cyanosis or edema DS: Data Data Completed and Pending Pending studies at discharge: Pending at discharge 08/16/21 13:16 Surgical [PTH] Routine Discharge Plan Discharge Patient Disposition: Home, Self-Care Referrals: Gustavo Estrada MD [Physician] - 2 Weeks PhysicianJanak [Primary Care Provider] - 1 Week Discharge Medications: New ondansetron 8 mg tablet,disintegrating 8 mg PO Q8H PRN (Reason: nausea and vomiting) Qty: 20 0RF docusate sodium [Colace] 100 mg capsule 100 mg PO BID PRN (Reason: constipation) Qty: 30 0RF oxycodone 5 mg tablet 5 mg PO Q4H PRN (Reason: pain (scale score 7-10)) Qty: 30 0RF Continued carbamazepine 200 mg tablet extended release 12 hr 800 mg PO DAILY@1800 0RF carbamazepine 200 mg tablet extended release 12 hr 600 mg PO DAILY@0600 0RF Discharge Orders: Discharge Order (Routine); Ordered 08/17/21 Ordered By: Emely Meza Activity Restrictions/Additional Instructions: No lifting > 10 pounds for 2 weeks No driving for one week Ice to the incision x 24 hours Ok to shower. Remove dressing in 3 days. Follow up in office with Dr. Estrada in 1 week. ([phone]) Call Your Doctor If: ? ? -Your temperature exceeds 101.5? F? ? ? -You experience excessive pain or swelling ? ? -You have an unexpected reaction to medication ? ? -You have excessive bleeding ? ? -You experience continued vomiting/nausea ? ? -Your incision begins to separate ?? ? -Your incision shows signs of infection such as increased redness, swelling, excessive pain, drainage (light blood or clear fluid is normal) or heat Discharge Date/Time: 08/17/21 15:28
== END 2021-08-17 15:28 | disposition home or self-care (01) ==
LOC: HO.ED 07:42 → HO.SSS 12:54 → HO.S3 12:55
PROVIDERS: Emergency Provider Emergency Medicine Emergency Medical Services; Visit Provider Surgery
PROC: 0DTJ4ZZ Resection of Appendix, Percutaneous Endoscopic Approach (ICD-10-PCS; CPT 44970; principal; 2021-08-16 12:30)
DX: K35.80 Unspecified acute appendicitis (principal); R10.31 Right lower quadrant pain; R11.0 Nausea; Z20.822 Contact with and (suspected) exposure to COVID-19; G40.909 Epilepsy, unspecified, not intractable, without status epilepticus; Z79.899 Other long term (current) drug therapy; Z88.2 Allergy status to sulfonamides; Z86.19 Personal history of other infectious and parasitic diseases; Z90.49 Acquired absence of other specified parts of digestive tract
CPT/HCPCS: 44970; 36415; 74177; 80053; 81003; 83690; 85025; 87635; 88304; 96361; 96374; 96375; 99285; J0131; J1100; J1170; J1885; J2250; J2270; J2405; J2543; J3010; Q9967

== ENCOUNTER → 2021-09-01 10:20 | Outpatient (BNVA) | payer OTHER, SELFPAY | PROVIDERS: Visit Provider Surgery | DX: Z13.89 Encounter for screening for other disorder (principal) ==

== ENCOUNTER 2022-11-11 14:13 | Emergency (ER) | payer OTHER, MEDICAID, SELFPAY ==
--- NOTE | ~2022-11-11 | XR_ITS ---
EXAMINATION: XR FOOT, LEFT CLINICAL INFORMATION: Laceration with foot pain COMPARISON: None available. TECHNIQUE: 3 views of the left foot. FINDINGS: There is no evidence of acute fracture or dislocation of the left foot. Left foot joint spaces are maintained. No gas within the soft tissues is identified. No radiopaque foreign body. No cortical thinning or erosion is appreciated. There is mild edema present about the medial tarsal bones. XR/XR foot LT min 3V IMPRESSION: No acute fracture. No radiopaque foreign body.
[2022-11-11 14:24] VITALS: BP 137/87; PULSE 88; RESP 18; TEMP 36.7; O2SAT 98; BMI 23.0
--- NOTE | 2022-11-11 14:25 | ED_ITS ---
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 Tetanus unknown. Denies injury to other area, numbness, tingling, weakness, fever Related Data Home Medications Medication Instructions Recorded Confirmed carbamazepine 200 mg 600 mg PO DAILY@0600 02/27/20 08/16/21 tablet,extended release,12 hr carbamazepine 200 mg 800 mg PO DAILY@1800 08/16/21 08/16/21 tablet,extended release,12 hr Previous Rx's Medication Instructions Recorded docusate sodium 100 mg capsule 100 mg PO BID PRN constipation #30 08/17/21 (Colace) caps ondansetron 8 mg disintegrating 8 mg PO Q8H PRN nausea and 08/17/21 tablet vomiting #20 tabs oxycodone 5 mg tablet 5 mg PO Q4H PRN pain (scale score 08/17/21 7-10) #30 tabs cephalexin 500 mg capsule 500 mg PO QID 7 days #28 caps 11/11/22 ciprofloxacin HCl 500 mg tablet 500 mg PO BID 7 days #14 tabs 11/11/22 (Cipro) Allergies Allergy/AdvReac Type Severity Reaction Status Date / Time bee pollen [BEE STINGS] Allergy Severe Anaphylaxis Verified 07/15/22 08:57 gluten [GLUTEN] Allergy Severe Anaphylaxis Verified 07/15/22 08:57 Sulfa (Sulfonamide Allergy Unknown ANAPHYLAXIS Verified 09/01/21 10:50 Antibiotics) [SULFA (SULFONAMIDE ANTIBIOTICS)] sulfamethoxazole Allergy Unknown Anaphylaxis Verified 07/15/22 08:57 benztropine [From Cogentin] AdvReac Mild Urinary Verified 07/15/22 08:57 Retention Review of Systems Review of Systems: Constitutional: No Fever, No Chills ENT/Mouth: No Ear Pain, No Nasal Congestion, No Rhinorrhea, No Swallowing Difficulty Cardiovascular: No Chest Pain, No SOB Respiratory: No Cough, No Sputum, No Wheezing Gastrointestinal: No Nausea, No Vomiting, No Diarrhea, No Constipation, No Abdominal pain Genitourinary: No Dysuria, No Urinary Frequency, No Hematuria Musculoskeletal: No joint pain, No Myalgias, No Joint Swelling Skin: + Skin Lesions, No rash Neuro: No Weakness, No Numbness, No Paresthesias Yes all other systems are reviewed and are negative Constitutional: Constitutional: Reports as per [facility] Past Medical History Attestation statement: The following information was validated with the patient. Source: old records reviewed Medical History Acute appendicitis Epilepsy Surgical History History of esophagogastroduodenoscopy (EGD) History of laparoscopic appendectomy Hx of brain surgery Hx of colonoscopy Family History Family History Mother Hypertension Father Epilepsy Sister No problems noted. Son No problems noted. 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 Physical Exam ED Vital Signs: Vital Signs - 24 hr 11/11/22 14:24 Temperature 98.0 F Pulse Rate 88 Respiratory Rate 18 Blood Pressure 137/87 Pulse Oximetry 98 Oxygen Delivery Method Room Air BMI result Body Mass Index 23.0 Const General: cooperative, healthy appearing and no acute distress Orientation/consciousness: patient oriented x3 Limitations: no limitations HENSC Head: Yes normal to inspection and Yes atraumatic Ears: hearing grossly normal bilaterally General nose exam: Normal external nose present Face and sinus: Yes normal facial exam Eyes General: appearance normal, both eyes and all related structures EOM: EOMs intact bilaterally Neck Neck: Yes normal visual inspection and Yes no meningeal signs Resp Effort & Inspection: normal respiratory effort and no respiratory distress Cardio Rate: regular rate Skin Other: + macerated lacerations to left medial foot, bleeding controlled. Irregular. Underlying structures appear intact. Small amount of subcu tissue appreciated. Rashes: no rashes Neuro General: patient oriented x3, tone normal and no meningeal signs Gait exam (Neuro): Normal gait present Extrem Other: + swelling and ecchymosis noted to left medial foot with tenderness to palpation. Neurovascular intact. Ankle nontender Medications Administered Discontinued Medications Generic Name Dose Route Start Last Admin Trade Name Rojas PRN Reason Stop Dose Admin Lidocaine HCl 5 ml 11/11/22 15:55 11/11/22 16:07 Lidocaine Hcl 1 % Mpf 5 Ml Vial INFILTRATI 11/11/22 15:56 5 ml ONCE ONE Administration Procedures Laceration Laceration 1: Site: lower extremity Side (If applicable): left Size (cm): 4 Description: irregular Depth: simple, single layer Local Anesthetic: lidocaine 1% Amount of anesthesia used (mL): 4 Pre-repair: wound explored, irrigated extensively and deep structures intact Skin layer closed with: nylon Size (cm): 4-0 Number of sutures: 11 Technique: simple, interrupted Medical Decision Making Medical Decision Making MDM Narrative: 31-year-old male with a past medical history of celiac disease, presenting to the ED complaining of laceration to left foot s/p metal slitter falling out of hands and 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 On exam vital signs, NAD, nontoxic appearing, physical exam as noted above. Concern for laceration vs fracture/crush injury. Low suspicion for retained foreign body. No evidence of cellulitis Plan: X-rays, repair wound. Empiric antibiotics to cover Pseudomonas Please refer to course for remaining clinical decision making, interpretation of labs/imaging results, and discussions with consultants and/or family members. Differential Diagnosis Differential Diagnoses: The differential diagnosis associated with the presentation includes As above Radiology Impression Discussion of test interpretation with radiology: I have reviewed the radiologist's reading. External Record Review External record reviewed: Inpatient record, Office record, Outpatient record, Prior outpatient labs, Prior outpatient radiology, Primary care record and Outside ED record Tests considered The following testing was considered but not selected: As above Prescription Management I considered prescription management with: Antibiotic Discharge Plan Discharge Clinical Impression: Laceration Patient Disposition: Home, Self-Care Instructions: Laceration (DC) Additional Instructions: Your wounds were repaired today in the emergency department. Keep dry and clean. You need to return to any emergency department, urgent care, or your PCPs office in 7-10 days for suture removal Apply bacitracin and or Neosporin daily Keflex and Cipro are antibiotics piece take as prescribed Once sutures are removed apply anti scar cream like Mederma If area begins look infected, is red, there is drainage, streaking, or you have fever please return to the emergency department Prescriptions: New ciprofloxacin HCl [Cipro] 500 mg tablet 500 mg PO BID 7 Days Qty: 14 0RF cephalexin 500 mg capsule 500 mg PO QID 7 Days Qty: 28 0RF No Action carbamazepine 200 mg tablet extended release 12 hr 800 mg PO DAILY@1800 ondansetron 8 mg tablet,disintegrating 8 mg PO Q8H PRN (Reason: nausea and vomiting) Qty: 20 0RF docusate sodium [Colace] 100 mg capsule 100 mg PO BID PRN (Reason: constipation) Qty: 30 0RF oxycodone 5 mg tablet 5 mg PO Q4H PRN (Reason: pain (scale score 7-10)) Qty: 30 0RF carbamazepine 200 mg tablet extended release 12 hr 600 mg PO DAILY@0600 Referrals: Physician,Unknown J [Primary Care Provider] - 1 week (7-10 days for suture removal) Stand Alone Forms: Work/School Release
[2022-11-11] MEDS: Lidocaine HCl 1 % MPF 5 ML VIAL INFILTRATI (16:07)
[2022-11-11] MEDS: Diphth,Pertus(ACell),Tet Adult 0.5 ML SYRINGE IM (16:56)
== END 2022-11-11 17:08 | disposition home or self-care (01) ==
PROVIDERS: Emergency Provider Emergency Medicine
DX: S91.312A Laceration without foreign body, left foot, initial encounter (principal); W31.1XXA Contact with metalworking machines, initial encounter; Y93.9 Activity, unspecified; Y92.9 Unspecified place or not applicable; Y99.9 Unspecified external cause status
CPT/HCPCS: 12002; 73630; 90471; 90715; 99282; 99284

== ENCOUNTER 2024-08-16 22:40 | Emergency (ER) | payer OTHER, SELFPAY ==
--- NOTE | ~2024-08-16 | CT_ITS ---
CLINICAL HISTORY: Fall post seizure CT head without contrast Comparison: None Findings: Encephalomalacia/gliosis in the anterior inferior right frontal lobe. No intra-axial mass, midline shift, hydrocephalus, or acute hemorrhage. No significant atrophy-like change or white matter disease. Mineralization in the left basal ganglia. The visualized paranasal sinuses and mastoid air cells are normal. The orbits are within normal limits. Evidence of prior right-sided craniotomy changes. IMPRESSION: 1. No acute intracranial findings. This document has been electronically signed by: Robby Apple MD on 08/17/2024 03:10:17
[2024-08-16 23:04] VITALS: BP 118/78; PULSE 107; RESP 20; TEMP 37.1; O2SAT 100; BMI 25.0
--- NOTE | 2024-08-16 23:17 | MHC.EDTECH ---
pt changed over, placed on conditioner tumbler and seizure pads in place.
[2024-08-17 00:16] LABS: MANUAL DIFF FLAG NO
[2024-08-17 00:17] VITALS: BP 112/72; PULSE 84; RESP 15; TEMP 36.9; O2SAT 97
[2024-08-17 00:18] LABS: Basophils Percent Auto 0.2 % (0-2); Eosinophils Percent Auto 0.4 % (0-4); Hematocrit 37.8 % (42.0-52.0); Hemoglobin 13.8 g/dl (14.0-18.0); Imm Gran Abs Auto 0.01 X10*3/uL (0.00-0.03); Imm Gran Pct Auto 0.2 % (0.0-0.4); Lymphocytes Absolute Auto 0.6 X10*3/uL (1.2-4.9); Lymphocytes Percent Auto 10.3 % (20-40); Mean Corpuscular HGB Conc 36.5 g/dl (31.0-36.0); Mean Corpuscular Hemoglobin 30.8 pg (27.0-33.0); Mean Corpuscular Volume 84.4 fL (80.0-98.0); Mean Platelet Volume 8.8 fL (9.4-12.4); Monocytes Absolute Auto 0.4 X10*3/uL (0.1-1.2); Neutrophils Absolute Auto 4.3 x10*3/uL (2.0-8.3); Neutrophils Percent Auto 80.9 % (45-73); Platelet Count 233 X10*3/uL (160-400); Red Blood Count 4.48 X10*6/uL (4.60-5.80); Red Cell Distribution Width 11.9 % (11.0-16.0); White Blood Count 5.4 X10*3/uL (4.8-10.8)
[2024-08-17 00:31] LABS: Alanine Aminotransferase 61 U/L (0-40); Alkaline Phosphatase 79 U/L (39-117); Anion Gap 12 (12-20); Aspartate Amino Transferase 36 U/L (5-37); Bilirubin Total 0.5 mg/dL (0.0-1.0); Blood Urea Nitrogen 13 mg/dL (9-16); Calcium 8.5 mg/dL (8.4-10.2); Carbon Dioxide 23 mmol/L (22-29); Chloride 105 mmol/L (96-108); Estimated Glomerular Filt Rate > 60; Glucose Random 107 mg/dL (60-115); Potassium 3.8 mmol/L (3.3-5.1); Sodium 136 mmol/L (135-145); Total Protein 6.3 g/dL (6.5-8.0)
[2024-08-17 00:32] LABS: Carbamazepine Tegretol 8.8 mcg/mL (5.0-12.0)
[2024-08-17 00:54] LABS: Influenza A PCR NEGATIVE (Negative); Influenza B PCR NEGATIVE (Negative); Resp Syncy Virus RNA Qual PCR NEGATIVE (Negative); SARS COV2 PCR INHOUSE NEGATIVE (Negative)
--- NOTE | 2024-08-17 01:38 | ED_ITS ---
HPI - Seizure General Chief Complaint: Seizure Stated Complaint: high fever, vomiting, seizure had teeth removed Time Seen by Provider: 08/17/24 01:33 Source: patient Mode of arrival: ambulatory Limitations: no limitations History of Present Illness ED Provider: HPI Narrative: Patient's history of seizures on Tegretol did not have any seizure for last 10 years had dental workup done today had a seizure today at 20:00 patient took his medicine earlier today also during the day patient has nausea vomiting patient not able to sleep well for last few weeks sleeping only for.4 hours a day no history of use of tramadol/Wellbutrin/cocaine/alcohol earlier patient has had a temperature of 104 degress afebrile after arrival no neck pain Related Data Home Medications ?Medication ?Instructions ?Recorded ?Confirmed carbamazepine 200 mg 600 mg PO DAILY@0600 02/27/20 08/16/21 tablet,extended release,12 hr carbamazepine 200 mg 800 mg PO DAILY@1800 08/16/21 08/16/21 tablet,extended release,12 hr Previous Rx's ?Medication ?Instructions ?Recorded docusate sodium 100 mg capsule 100 mg PO BID PRN constipation #30 08/17/21 (Colace) caps ondansetron 8 mg disintegrating 8 mg PO Q8H PRN nausea and 08/17/21 tablet vomiting #20 tabs oxycodone 5 mg tablet 5 mg PO Q4H PRN pain (scale score 08/17/21 7-10) #30 tabs cephalexin 500 mg capsule 500 mg PO QID 7 days #28 caps 11/11/22 ciprofloxacin HCl 500 mg tablet 500 mg PO BID 7 days #14 tabs 11/11/22 (Cipro) Allergies Allergy/AdvReac Type Severity Reaction Status Date / Time bee pollen [BEE STINGS] Allergy Severe Anaphylaxis Verified 08/16/24 23:09 gluten [GLUTEN] Allergy Severe Anaphylaxis Verified 08/16/24 23:09 Sulfa (Sulfonamide Allergy Unknown ANAPHYLAXIS Verified 08/16/24 23:09 Antibiotics) [SULFA (SULFONAMIDE ANTIBIOTICS)] sulfamethoxazole Allergy Unknown Anaphylaxis Verified 08/16/24 23:09 benztropine [From Cogentin] AdvReac Mild Urinary Verified 08/16/24 23:09 Retention Review of Systems 2 Review of Systems: Yes all other systems are reviewed and are negative PMFSH Past Medical History Medical History Acute appendicitis Epilepsy Surgical History History of laparoscopic appendectomy Hx of brain surgery Hx of colonoscopy History of esophagogastroduodenoscopy (EGD) Family History Family History Mother Hypertension Father Epilepsy Sister No problems noted. Son No problems noted. 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 Physical Exam 2 Vital Signs: Vital Signs: Last Vital Signs Temp 98.5 F 08/17/24 03:36 Pulse 89 08/17/24 03:36 Resp 18 08/17/24 03:36 BP 111/62 08/17/24 03:36 Pulse Ox 98 08/17/24 03:36 O2 Del Method Room Air 08/17/24 03:36 BMI result Body Mass Index 25.0 Appearance: Alert. Oriented X3. No acute distress. Eyes: No pallor or icterus ENT: Pharynx normal. Oral Mucosa moist Neck: Normal inspection. Neck supple. CVS: Normal heart rate and rhythm. Pulses normal. Respiratory: No respiratory distress. Equal air entry bilateral, no wheezing/rales/rhonchi Abdomen: Soft and nontender. Bowel sounds are present, no mass palpable, no CVA tenderness Skin: Skin warm and dry. Normal skin color. Normal skin turgor. Extremities: No lower extremity edema. No calf tenderness Neuro: Oriented X 3. No motor deficit. No sensory deficit.No cerebellar signs , cranial nerves II-XII intact Medications Administered Discontinued Medications Generic Name Dose Route Start Last Admin Trade Name Freq PRN Reason Stop Dose Admin Carbamazepine 600 mg 08/17/24 01:47 08/17/24 02:09 Carbamazepine 200 Mg Tablet PO 08/17/24 01:48 600 mg ONCE ONE Administration Medical Decision Making Medical Decision Making [facility] Narrative: Patient with known history of epilepsy had a seizure after more than 10 years of without seizures Depakote level was in clinical range patient noted to have fever at home not on arrival no signs of meningitis no change not on sensorium patient is feeling much better during stay in the ER likely viral as the cause for the fever will discharge patient home advised to continue Depakote and follow up neurologist Differential Diagnosis Differential Diagnoses: The differential diagnosis associated with the presentation includes Lab Data [facility] Lab Attestation statement: I reviewed the patient's lab results. 08/17/24 00:10 08/17/24 00:10 Labs: Lab Results 08/17/24 Range/Units 00:10 WBC 5.4 (4.8-10.8) X10*3/uL RBC 4.48 L (4.60-5.80) X10*6/uL Hgb 13.8 L (14.0-18.0) g/dl Hct 37.8 L (42.0-52.0) % MCV 84.4 (80.0-98.0) fL MCH 30.8 (27.0-33.0) pg MCHC 36.5 H (31.0-36.0) g/dl RDW 11.9 (11.0-16.0) % Plt Count 233 (160-400) X10*3/uL MPV 8.8 L (9.4-12.4) fL Immature Gran % (Auto) 0.2 (0.0-0.4) % Neut % (Auto) 80.9 H (45-73) % Lymph % (Auto) 10.3 L (20-40) % Sully % (Auto) 8.0 (2-11) % Eos % (Auto) 0.4 (0-4) % Baso % (Auto) 0.2 (0-2) % Lymph # (Auto) 0.6 L (1.2-4.9) X10*3/uL S[place] # (Auto) 0.4 (0.1-1.2) X10*3/uL Eos # (Auto) 0.0 (0.0-0.4) X10*3/uL Baso # (Auto) 0.0 (0.0-0.2) X10*3/uL Abs Immat Gran (auto) 0.01 (0.00-0.03) X10*3/uL Absolute Neuts (auto) 4.3 (2.0-8.3) x10*3/uL Absolute Nucleated RBC 0.000 (0.0-0.012) X10*3/uL Nucleated RBC % (auto) 0.0 (0.0-0.2) /100WBC Sodium 136 (135-145) mmol/L Potassium 3.8 (3.3-5.1) mmol/L Chloride 105 (96-108) mmol/L Carbon Dioxide 23 (22-29) mmol/L Anion Gap 12 (12-20) BUN 13 (9-16) mg/dL Creatinine 0.85 (0.5-1.4) mg/dL Estim Creat Clear Calc 130.0 Estimated GFR > 60 Random Glucose 107 (60-115) mg/dL Calcium 8.5 (8.4-10.2) mg/dL Total Bilirubin 0.5 (0.0-1.0) mg/dL AST 36 (5-37) U/L ALT 61 H (0-40) U/L Alkaline Phosphatase 79 (39-117) U/L Total Protein 6.3 L (6.5-8.0) g/dL Albumin 4.0 (3.5-5.0) g/dL Carbamazepine 8.8 (5.0-12.0) mcg/mL Influenza Type A (PCR) NEGATIVE (Negative) Influenza Type B (PCR) NEGATIVE (Negative) RSV RNA Qual (PCR) NEGATIVE (Negative) SARS-CoV-2 RNA (RT-PCR) NEGATIVE (Negative) Discharge Plan Discharge Clinical Impression: Epileptic seizure Patient Disposition: Home, Self-Care Instructions: Epilepsy (ED) Additional Instructions: Continue take your medication for seizures Avoid sleep deprivation Follow with neurologist Prescriptions: No Action carbamazepine 200 mg tablet extended release 12 hr 800 mg PO DAILY@1800 ondansetron 8 mg tablet,disintegrating 8 mg PO Q8H PRN (Reason: nausea and vomiting) Qty: 20 0RF docusate sodium [Colace] 100 mg capsule 100 mg PO BID PRN (Reason: constipation) Qty: 30 0RF oxycodone 5 mg tablet 5 mg PO Q4H PRN (Reason: pain (scale score 7-10)) Qty: 30 0RF ciprofloxacin HCl [Cipro] 500 mg tablet 500 mg PO BID 7 Days Qty: 14 0RF cephalexin 500 mg capsule 500 mg PO QID 7 Days Qty: 28 0RF carbamazepine 200 mg tablet extended release 12 hr 600 mg PO DAILY@0600 Interventions: ED Discharge Assessment Last Done: 08/17/24 03:36 Discharge Date/Time: 08/17/24 03:37 Print Language: Eritrean
--- NOTE | 2024-08-17 01:47 | PC.NURSE ---
Provider to bedside for primary eval.
[2024-08-17] MEDS: carBAMazepine 200 MG TABLET 600 MG PO (02:09)
[2024-08-17 02:10] VITALS: BP 111/62; PULSE 89; RESP 18; O2SAT 98
[2024-08-17 03:36] VITALS: BP 111/62; PULSE 89; RESP 18; TEMP 36.9; O2SAT 98
== END 2024-08-17 03:37 | disposition home or self-care (01) ==
PROVIDERS: Emergency Provider Internal Medicine; PCP Physician Assistant
DX: G40.909 Epilepsy, unspecified, not intractable, without status epilepticus (principal); Z03.818 Encounter for observation for suspected exposure to other biological agents ruled out
CPT/HCPCS: 0241U; 36415; 70450; 80053; 80156; 85025; 99284

== ENCOUNTER → 2024-08-17 01:46 | Outpatient (BNV) | payer OTHER, SELFPAY | PROVIDERS: Emergency Provider Internal Medicine; PCP Physician Assistant; Visit Provider Radiology Diagnostic Radiology | DX: R56.9 Unspecified convulsions (principal); W19.XXXA Unspecified fall, initial encounter | CPT/HCPCS: 70450 ==

== ENCOUNTER 2024-08-21 13:55 | Emergency (ER) | payer OTHER, SELFPAY ==
--- NOTE | ~2024-08-21 | US_ITS ---
EXAMINATION: US SCROTUM WITH DOPPLER COMPLETE HISTORY: R testicular pain/swelling. COMPARISON: There are no prior studies for comparison. FINDINGS: Real-time grayscale ultrasound imaging of the scrotum was performed. Color and spectral Doppler analysis was also performed. RIGHT TESTICLE: The right testis measures 4.7 x 2.4 x 2.6 cm and demonstrates normal homogeneous echotexture. No masses are seen. The right testis demonstrates normal arterial and venous color Doppler and spectral waveforms. RIGHT EPIDIDYMIS: Normal in size, shape, and vascularity. LEFT TESTICLE: The left testis measures 4.7 x 2.3 x 3.2 cm and demonstrates normal homogeneous echotexture. No masses are seen. The left testis demonstrates normal arterial and venous color Doppler and spectral waveforms. LEFT EPIDIDYMIS: Normal in size, shape, and vascularity. There is a 5 mm epididymal head cyst. VARICOCELE: None. HYDROCELE: No significant hydrocele is seen. OTHER COMMENTS: None. US/US scrotum doppler IMPRESSION: 5 mm left epididymal head cyst. Otherwise unremarkable scrotal ultrasound. Electronically signed by: Ryley Buckley MD 08/21/2024 03:37 PM EDT
--- NOTE | ~2024-08-21 | US_ITS ---
EXAMINATION: US SCROTUM WITH DOPPLER COMPLETE HISTORY: R testicular pain/swelling. COMPARISON: There are no prior studies for comparison. FINDINGS: Real-time grayscale ultrasound imaging of the scrotum was performed. Color and spectral Doppler analysis was also performed. RIGHT TESTICLE: The right testis measures 4.7 x 2.4 x 2.6 cm and demonstrates normal homogeneous echotexture. No masses are seen. The right testis demonstrates normal arterial and venous color Doppler and spectral waveforms. RIGHT EPIDIDYMIS: Normal in size, shape, and vascularity. LEFT TESTICLE: The left testis measures 4.7 x 2.3 x 3.2 cm and demonstrates normal homogeneous echotexture. No masses are seen. The left testis demonstrates normal arterial and venous color Doppler and spectral waveforms. LEFT EPIDIDYMIS: Normal in size, shape, and vascularity. There is a 5 mm epididymal head cyst. VARICOCELE: None. HYDROCELE: No significant hydrocele is seen. OTHER COMMENTS: None. US/US scrotum IMPRESSION: 5 mm left epididymal head cyst. Otherwise unremarkable scrotal ultrasound. Electronically signed by: Ryley Buckley MD 08/21/2024 03:37 PM EDT
--- NOTE | 2024-08-21 14:25 | ED.ABDPAIN ---
HPI - Abdominal Pain General Chief Complaint: Abdominal Pain Stated Complaint: Hernia, pain groin area Related Data Home Medications ?Medication ?Instructions ?Recorded ?Confirmed carbamazepine 200 mg 600 mg PO DAILY@0600 02/27/20 08/16/21 tablet,extended release,12 hr carbamazepine 200 mg 800 mg PO DAILY@1800 08/16/21 08/16/21 tablet,extended release,12 hr Previous Rx's ?Medication ?Instructions ?Recorded docusate sodium 100 mg capsule 100 mg PO BID PRN constipation #30 08/17/21 (Colace) caps ondansetron 8 mg disintegrating 8 mg PO Q8H PRN nausea and 08/17/21 tablet vomiting #20 tabs oxycodone 5 mg tablet 5 mg PO Q4H PRN pain (scale score 08/17/21 7-10) #30 tabs cephalexin 500 mg capsule 500 mg PO QID 7 days #28 caps 11/11/22 ciprofloxacin HCl 500 mg tablet 500 mg PO BID 7 days #14 tabs 11/11/22 (Cipro) Allergies Allergy/AdvReac Type Severity Reaction Status Date / Time bee pollen [BEE STINGS] Allergy Severe Anaphylaxis Verified 08/21/24 14:27 gluten [GLUTEN] Allergy Severe Anaphylaxis Verified 08/21/24 14:27 Sulfa (Sulfonamide Allergy Unknown ANAPHYLAXIS Verified 08/21/24 14:27 Antibiotics) [SULFA (SULFONAMIDE ANTIBIOTICS)] sulfamethoxazole Allergy Unknown Anaphylaxis Verified 08/21/24 14:27 benztropine [From Cogentin] AdvReac Mild Urinary Verified 08/21/24 14:27 Retention PMFSH Past Medical History Medical History Acute appendicitis Epilepsy Surgical History History of laparoscopic appendectomy Hx of brain surgery Hx of colonoscopy History of esophagogastroduodenoscopy (EGD) Family History Family History Mother Hypertension Father Epilepsy Sister No problems noted. Son No problems noted. 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 Physical Exam ED Vital Signs: BMI result Body Mass Index 24.0 Course Course Course Narrative: This is an RME: Additional HPI, ROS, PE not included below will be deferred to primary provider. RME assessment and note performed by: Rina Quan PA-C This is a 33-year-old male, with a history of epilepsy, who presents emergency department with complaints of right lower abdominal pain which radiates into his right scrotum, states that he has noticed a bump in this region which he can reduce. He did have the GI bug 1 week ago and had lots of diarrhea and vomiting, reports that this has resolved. He states that the pain causes achiness into his scrotum. He does report pain with urination. No concerns for sexually transmitted infections. Feels like he has a hernia, he has had no fevers, chills. Unable to visualize in triage secondary to limited privacy. Plan: labs, UA, ultrasound, further ER evaluation needed Reevaluation(s) Reevaluation #1: Patient left without completing treatment. Medical Decision Making Lab Data 08/21/24 15:06 08/21/24 15:06 Labs: Lab Results 08/21/24 Range/Units 15:06 WBC 4.3 L (4.8-10.8) X10*3/uL RBC 4.23 L (4.60-5.80) X10*6/uL Hgb 12.9 L (14.0-18.0) g/dl Hct 36.1 L (42.0-52.0) % MCV 85.3 (80.0-98.0) fL MCH 30.5 (27.0-33.0) pg MCHC 35.7 (31.0-36.0) g/dl RDW 11.9 (11.0-16.0) % Plt Count 260 (160-400) X10*3/uL MPV 9.2 L (9.4-12.4) fL Immature Gran % (Auto) 0.5 H (0.0-0.4) % Neut % (Auto) 51.3 (45-73) % Lymph % (Auto) 35.3 (20-40) % [place] % (Auto) 11.1 H (2-11) % Eos % (Auto) 0.9 (0-4) % Baso % (Auto) 0.9 (0-2) % Lymph # (Auto) 1.5 (1.2-4.9) X10*3/uL [place] # (Auto) 0.5 (0.1-1.2) X10*3/uL Eos # (Auto) 0.0 (0.0-0.4) X10*3/uL Baso # (Auto) 0.0 (0.0-0.2) X10*3/uL Abs Immat Gran (auto) 0.02 (0.00-0.03) X10*3/uL Absolute Neuts (auto) 2.2 (2.0-8.3) x10*3/uL Absolute Nucleated RBC 0.000 (0.0-0.012) X10*3/uL Nucleated RBC % (auto) 0.0 (0.0-0.2) /100WBC Sodium 140 (135-145) mmol/L Potassium 4.2 (3.3-5.1) mmol/L Chloride 107 (96-108) mmol/L Carbon Dioxide 29 (22-29) mmol/L Anion Gap 8 L (12-20) BUN 8 L (9-16) mg/dL Creatinine 0.82 (0.5-1.4) mg/dL Estim Creat Clear Calc 134.7 Estimated GFR > 60 Random Glucose 93 (60-115) mg/dL Calcium 8.9 (8.4-10.2) mg/dL Total Bilirubin 0.3 (0.0-1.0) mg/dL Direct Bilirubin 0.1 (0.0-0.5) mg/dL AST 40 H (5-37) U/L ALT 60 H (0-40) U/L Alkaline Phosphatase 82 (39-117) U/L Total Creatine Kinase 38 (38-174) U/L Total Protein 6.4 L (6.5-8.0) g/dL Albumin 4.1 (3.5-5.0) g/dL Discharge Plan Discharge Clinical Impression: Abdominal pain Patient Disposition: Left W/O Completing Treatment Prescriptions: No Action carbamazepine 200 mg tablet extended release 12 hr 800 mg PO DAILY@1800 ondansetron 8 mg tablet,disintegrating 8 mg PO Q8H PRN (Reason: nausea and vomiting) Qty: 20 0RF docusate sodium [Colace] 100 mg capsule 100 mg PO BID PRN (Reason: constipation) Qty: 30 0RF oxycodone 5 mg tablet 5 mg PO Q4H PRN (Reason: pain (scale score 7-10)) Qty: 30 0RF ciprofloxacin HCl [Cipro] 500 mg tablet 500 mg PO BID 7 Days Qty: 14 0RF cephalexin 500 mg capsule 500 mg PO QID 7 Days Qty: 28 0RF carbamazepine 200 mg tablet extended release 12 hr 600 mg PO DAILY@0600 Discharge Date/Time: 08/21/24 20:44
[2024-08-21 14:26] VITALS: BP 134/85; PULSE 82; RESP 16; TEMP 37.1; O2SAT 99; BMI 24.0
[2024-08-21 15:21] LABS: MANUAL DIFF FLAG NO
[2024-08-21 15:26] LABS: Basophils Percent Auto 0.9 % (0-2); Eosinophils Percent Auto 0.9 % (0-4); Hematocrit 36.1 % (42.0-52.0); Hemoglobin 12.9 g/dl (14.0-18.0); Imm Gran Abs Auto 0.02 X10*3/uL (0.00-0.03); Imm Gran Pct Auto 0.5 % (0.0-0.4); Lymphocytes Absolute Auto 1.5 X10*3/uL (1.2-4.9); Lymphocytes Percent Auto 35.3 % (20-40); Mean Corpuscular HGB Conc 35.7 g/dl (31.0-36.0); Mean Corpuscular Hemoglobin 30.5 pg (27.0-33.0); Mean Corpuscular Volume 85.3 fL (80.0-98.0); Mean Platelet Volume 9.2 fL (9.4-12.4); Monocytes Absolute Auto 0.5 X10*3/uL (0.1-1.2); Monocytes Percent Auto 11.1 % (2-11); Neutrophils Absolute Auto 2.2 x10*3/uL (2.0-8.3); Neutrophils Percent Auto 51.3 % (45-73); Platelet Count 260 X10*3/uL (160-400); Red Blood Count 4.23 X10*6/uL (4.60-5.80); Red Cell Distribution Width 11.9 % (11.0-16.0); White Blood Count 4.3 X10*3/uL (4.8-10.8)
[2024-08-21 16:03] LABS: Alanine Aminotransferase 60 U/L (0-40); Albumin Level 4.1 g/dL (3.5-5.0); Alkaline Phosphatase 82 U/L (39-117); Anion Gap 8 (12-20); Aspartate Amino Transferase 40 U/L (5-37); Bilirubin Direct 0.1 mg/dL (0.0-0.5); Bilirubin Total 0.3 mg/dL (0.0-1.0); Blood Urea Nitrogen 8 mg/dL (9-16); Calcium 8.9 mg/dL (8.4-10.2); Carbon Dioxide 29 mmol/L (22-29); Chloride 107 mmol/L (96-108); Creatinine Clr Calc Pharmacy 134.7; Estimated Glomerular Filt Rate > 60; Glucose Random 93 mg/dL (60-115); Potassium 4.2 mmol/L (3.3-5.1); Sodium 140 mmol/L (135-145); Total Protein 6.4 g/dL (6.5-8.0)
== END 2024-08-21 20:44 | disposition left against medical advice (07) ==
LOC: HO.ED 20:38
PROVIDERS: Physician Assistant Medical; Emergency Provider Emergency Medicine; PCP Physician Assistant
DX: R10.31 Right lower quadrant pain (principal)
CPT/HCPCS: 36415; 76870; 80048; 80076; 82550; 85025; 93975; 99281; 99284

== ENCOUNTER → 2024-08-21 14:28 | Outpatient (BNV) | payer OTHER, SELFPAY | PROVIDERS: PCP Physician Assistant; Visit Provider Radiology Diagnostic Radiology | DX: N50.811 Right testicular pain (principal) | CPT/HCPCS: 76870; 93975 ==

== ENCOUNTER 2024-09-04 12:48 | Outpatient (AMB) | payer OTHER, SELFPAY ==
--- NOTE | 2024-09-04 12:53 | MHC.OFFVIS ---
Intake Visit Reasons: Hernia, pain groin area Intake Note: Pt states, I have a hernia. c/o pain and bump x 3 weeks Exam Proctor Required: No Allergies bee pollen [BEE STINGS] Allergy (Severe, Verified 08/21/24 14:27) Anaphylaxis gluten [GLUTEN] Allergy (Severe, Verified 08/21/24 14:27) Anaphylaxis Sulfa (Sulfonamide Antibiotics) [SULFA (SULFONAMIDE ANTIBIOTICS)] Allergy (Unknown, Verified 08/21/24 14:27) ANAPHYLAXIS benztropine [From Cogentin] Adverse Reaction (Mild, Verified 08/21/24 14:27) Urinary Retention Medication List - Last Reconciled 09/04/24 by Rajiv Whipple RN carbamazepine ER 800 mg PO DAILY@1800 carbamazepine ER 600 mg PO DAILY@0600 HPI Comments Details: 33-year-old male presenting with concerns of an inguinal hernia. The presenting symptoms began following the physical task of dismantling a swingset approximately three weeks prior. The sudden onset of right-sided groin pain was accompanied by the development of a palpable lump, which is notably position-dependent. Initially, the symptom intensity increased steadily before stabilizing. Activities such as lifting and positional changes exacerbate the pain. Management of mild constipation with MiraLAX has been effective. There is no significant change or concern reported on the contralateral side. Intermittent testicular sensations, possibly related to nerve irritation in the inguinal region, have been described but do not correlate with significant swelling. The patient seeks evaluation and management options given the discomfort and its impact on daily activities. [facility] Medical History Acute appendicitis Epilepsy Surgical History History of laparoscopic appendectomy Hx of brain surgery Hx of colonoscopy History of esophagogastroduodenoscopy (EGD) Family History Mother Hypertension Father Epilepsy Sister No problems noted. Son No problems noted. 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 Review of Systems Const All systems reviewed & are unremarkable except as noted in HPI and below Physical Exam Const General: no acute distress Nutritional Appearance: well nourished Orientation/consciousness: patient oriented x3 Limitations: no limitations HEENT Head: Yes normocephalic and Yes atraumatic Resp Effort & Inspection: normal respiratory effort, no audible wheezes, no cough and no respiratory distress GI Inspection: Yes normal to inspection Palpation (GI): Soft to palpation, Tenderness to palpation present (GI) (Right groin) and Hernia present indirect inguinal on the right Percussion: Yes normal to percussion Skin General skin exam: no rashes or lesions noted Neuro General: patient oriented x3 Extrem General: Yes no clubbing, cyanosis or edema Assessment & Plan Assessment & Plan (1) Reducible right inguinal hernia: Code(s): K40.90 - Unilateral inguinal hernia, without obstruction or gangrene, not specified as recurrent Category: Medical Plan 33-year-old male patient returning with complaints of pain in the right groin after lifting a swing set approximately 3 weeks ago. On examination he is confirmed to have a small reducible right inguinal hernia which is minimally tender to palpation. We discussed the repair of this right inguinal hernia including the risks and benefits. After discussion of the procedure, risks, and alternatives, he consents to repair of the right inguinal hernia with mesh. This will be scheduled as a short-stay surgery at his earliest convenience. Coding Level of Care Code Est Pt Level 4 (60966) Diagnoses Reducible right inguinal hernia K40.90
--- OUTSIDE RECORDS SUMMARY | 2024-09-04 15:36 | XMS_ITS | Data Portability ---
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 He has narrowing of the left external auditory meatus resulting in tendency towards cerumen impaction and recurrent infection. Fortunately, today we see no sign of infection or inflammation. Once again we discussed options of continued observation versus left transcanal meatoplasty. Risks of meatoplasty were discussed which include bleeding, infection, recurrence of stenosis, and the need for post-operative kenalog injections. We discussed postoperative expectations including need for 2 postoperative visits. We anticipate removal of external auditory canal packing at one week and suture removal at 2 weeks postoperatively. After full discussion, the patient would like to proceed with surgery in the left ear. I have provided patient with the contact information for my surgical dressing maker. We will begin the scheduling process and see the patient back at the time of surgery. Patient will not require medical clearance from their primary care provider preoperatively. Not available 04/26/2024 14:02:17 06/01/2024 06/01/2024 The patient is doing well postoperatively. Ambrus packing removed and sutures are intact. Left EAC is healing normally. Continue with Ofloxacin BID and dry ear precautions until follow up with Dr. Joseph on 06/11. Patient with fatigue and nausea. Requested prescription for ondansetron which was provided. If symptoms persist or worsen, he will follow up with his PCP. [email or web address] Not available 06/01/2024 15:37:23 06/11/2024 06/11/2024 The left external auditory meatus is healing well following meatoplasty. Sutures removed. No signs of inflammation or over exuberant scarring. Recommend application of bacitracin ointment to the meatus twice a day for a week, then may discontinue. All water and activity precautions are lifted. Recommend follow-up in 6 weeks for next evaluation. [email or web address] Not available 06/11/2024 12:37:25 07/24/2024 07/24/2024 The left external auditory meatus is healing well following meatoplasty. No signs of inflammation or over exuberant scarring. The canal is widely patent and drum easily visible. Recommend follow-up in 6 months to assess long-term healing result and get updated audiometric testing. [email or web address] Not available 07/24/2024 08:27:39 Plan of Treatment Reminders Order Date Submit Date Provider Last Modified By Organization Details Last Modified Time Details Appointments Establish ed 15 2024 08:45A M STEVEN JOSEPH MD Not available Not available Not available Lab None recorded. Referral None recorded. Procedures None recorded. Surgeries meatoplas ty (SURG) 2023 024 [email or web address] Not available 04/27/2024 08:24:35 Imaging None recorded. Medication Orders ondansetr on 8 mg disintegr ating tablet 2024 025 upad [id number], [id number], [place], [address], 06/01/2024 15:27:06 Patient TargetsNo targets recorded. Patient InstructionsNo instructions recorded. Reason for Referral None Reported. Results Created Date Observation Date Name Description Value Unit Range Abnormal Flag Note LastModifiedBy Organization Detail LastModifiedTime 12/01/19 24 audio gram No observ ation record ed. [email or web address] Not Available 11/20 14:17:02 Result Notes None recorded. Problems Name Problem SNOMED Code Status Onset Date Resolution Date Notes Provider Name and Address Organization Details Recorded Time Difficult y speaking Active 2014 Hoarsenes s; Note: Date Diagnosed : 06/28/2014 4:57 PM (784.49) Not Available [facility] 4 02:50:53 Dysphonia 77484856 Active 2014 Other voice and resonance disorders ; Note: Date Diagnosed : 11/14/2014 11:41 AM (R49.8) [mapped from ICD9 code: 784.49] Not Available [facility] 4 02:50:52 Finding of resonance of voice 435186009 Active 2014 Other voice and resonance disorders ; Note: Date Diagnosed : 11/14/2014 11:41 AM (R49.8) [mapped from ICD9 code: 784.49] Not Available [facility] 4 02:50:52 Polyp of vocal cord or larynx 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 2014 Vocal cord polyp; Note: Date Diagnosed : 06/28/2014 4:57 PM (478.4) Not Available [facility] 4 02:50:50 Otalgia of left ear 9203498880 Active 2015 Otalgia, left ear; Note: Date Diagnosed : 02/24/2016 10:01 AM (H92.02) Not Available [facility] 4 02:50:49 Disorder of the larynx 23286180 Active 2014 Spastic Dysphonia ; Note: Date Diagnosed : 06/10/2014 9:42 AM (478.79) Not Available [facility] 4 02:50:51 Gastroeso phageal reflux disease without esophagit is 880440009 Active 2014 Esophagea l reflux NOS; Note: Date Diagnosed : 11/14/2014 11:41 AM (K21.9) [mapped from ICD9 code: 530.81] Not Available [facility] 4 02:50:49 Gastroeso phageal reflux disease 250128996 Active 2014 Laryngoph aryngeal reflux; Note: Date Diagnosed : 06/28/2014 4:57 PM (530.81) Not Available [facility] 4 02:50:50 Seizure disorder 261056202 Active 2015 Seizure disorder NOS; Note: Date Diagnosed : 02/24/2016 9:50 AM (G40.909) Not Available [facility] 4 02:50:47 Pain of left temporoma ndibular joint 73003901272 402137 Active 2015 Arthralgi a of left temporoma ndibular joint; Note: Changed from M26.62 to M26.622 (04/01/20 16 3:47 PM) , Date Diagnosed : 6 11:55 AM (M26.62) Not Available [facility] 4 02:50:46 Conductiv e hearing loss 46474913 Active 2015 Conductiv e hearing loss, unilatera l, left ear, with unrestric sana hearing on the contralat eral side; Note: Date Diagnosed : 6 12:14 PM (H90.12) Not Available [facility] 4 02:50:51 Partial loss of ear ossicles 47449101 Active 2023 STEVEN JOSEPH MD [address] [facility], [place], [address] , [place] - [facility] 4 18:13:38 Left conductiv e hearing loss 42877077051 07 Active 2023 STEVEN JOSEPH MD [address] [facility], [place], [address] , [place] - [facility] 4 18:14:09 Impacted cerumen in left ear 95472558142 26172 Active 2023 STEVEN JOSEPH MD [address] [facility],[address] [facility], [place], [address] , [place] - [facility] 4 09:40:21 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 65322876 Active 2023 STEVEN JOSEPH MD [address] [facility], [place], [address] , [place] - [facility] 4 09:41:09 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 Procedures Surgical History Date Name Laterality Status Provider Name and Address Organization Details Recorded Time 04/26/20 24 Cerumen removal with microscope left completed STEVEN JOSEPH MD [address] [place] [address],[place] [address], [place], [address], [place] - [facility] 04/26/2024 14:03:22 12/01/19 24 Comp Audio with Tymps (06761 & 40608) completed Piedad Loo [place] - [facility] 12/01/2023 10:08:08 12/01/19 24 Cerumen removal with microscope left completed STEVEN JOSEPH MD [address] [place] [address],[place] [address], [place], [address], [place] [facility] 12/01/2023 09:40:12 Appendectomy completed Deepika Ryder [place] - [facility] 12/01/2023 09:22:30 procedure on shoulder completed Deepika Ryder [place] - [facility] 12/01/2023 09:22:38 procedure on brain completed Deepika Ryder [place] - [facility] 12/01/2023 09:22:45 Imaging Results Imaging Date Name Status LastModified by Organiz ation Details LastModified Time 12/01/2023 audiogram completed [email or web address] Information n ot available 12/01/2023 14:17:02 Procedure Notes None recorded. Medical Equipment None Reported. Allergies Allergen ID Allergen Name Allergen Category Reaction Reaction Severity Criticality Documentation Date Start Date Code Code System Note Provider Name and Address Organization Details Recorded Time 770082 Substance with sulfonami de structure and antibacte rial mechanism of action (substanc e) medicatio n Not available Not available Not available 12/01/2023 99240 8003 SNOMED Deepika almodovar [place] - [facility] 09:19:48 Medications Name Sig Start Date Stop Date Status Note LastModified by Organization Details LastModified Time neomycin- polymyxin -hydrocor t 3.5 mg/mL-10, 000 unit/mL-1 % ear solution INSTILL 5 DROPS INTO THE LEFT EAR EVERY DAY 11/30 completed Not Available Not Available Not Available prazosin 1 mg capsule 11/30 completed Medicati on ID: [id number] D uration Value: 30 Brand Name: prazosin Send Method: E-Prescr ibed Sub s Allowed: subs OK Speci al Instruct ion: TAKE ONE CAPSULE BY MOUTH DAILY AT BEDTIME Medicati onGeneri cName: prazosin Medicat ion ID: [id number] D uration Value: 30 Brand Name: prazosin Send Method: E-Prescr ibed Sub s Allowed: subs OK Speci al Instruct ion: TAKE ONE CAPSULE BY MOUTH DAILY AT BEDTIME Medicati onGeneri cName: prazosin Not Available Not Available Not Available prednison e 20 mg tablet TAKE ONE TABLET BY MOUTH TWICE A DAY FOR 5 DAYS 11/30 completed Not Available Not Available Not Available ondansetr on 8 mg disintegr ating tablet Place 1 tablet every 8 hours by translin gual route as needed for 3 days. active Not Available Not Available No t Available risperido ne 2 mg tablet 11/30 completed Medicati on ID: [id number] D uration Value: 30 Brand Name: risperid one Send Method: E-Prescr ibed Sub s Allowed: subs OK Speci al Instruct ion: TAKE ONE TABLET BY MOUTH DAILY AT BEDTIME Medicati onGeneri cName: risperid one Medi cation ID: [id number] D uration Value: 30 Brand Name: risperid one Send Method: E-Prescr ibed Sub s Allowed: subs OK Speci al Instruct ion: TAKE ONE TABLET BY MOUTH DAILY AT BEDTIME Medicati onGeneri cName: risperid one Not Available Not Available Not Available ofloxacin 0.3 % ear drops INSTILL 4 DROPS IN AFFECTED EAR(S) TWO TIMES A DAY FOR 14 DAYS 06/11 completed Not Available Not Available Not Available Zofran 8 mg tablet 08/24 completed Medicati on ID: [id number] Pr escribed By Name: JAMAL Stroud nd Name: Zofran (as hydrochl oride) S end Method: E-Prescr ibed Sub s Allowed: subs OK Speci al Instruct ion: take 1 tablet po Q8 hours as needed for nausea M jp Perezeneric Name: Zofran (as hydrochl oride) Not Available Not Available Not Available lorazepam 0.5 mg tablet 11/30 completed Medicati on ID: [id number] D uration Value: 30 Brand Name: lorazepa m Send Method: E-Prescr ibed Sub s Allowed: subs OK Speci al Instruct ion: TAKE 1/2-1 TABLET DAILY NEEDED FOR ANXIETY AND 1 TABLET DAILY AT BE DTIME FOR SLEEP Me dication GenericN nida: lorazepa m Medica tion ID: [id number] D uration Value: 30 Brand Name: lorazepa m Send Method: E-Prescr ibed Sub s Allowed: subs OK Speci al Instruct ion: TAKE 1/2-1 TABLET DAILY NEEDED FOR ANXIETY AND 1 TABLET DAILY AT BE DTIME FOR SLEEP Me dication GenericN nida: lorazepa m Not Available Not Available Not Available carbamaze pine ER 200 mg tablet,ex tended release,1 2 hr TAKE THREE TABLETS BY MOUTH EVERY DAY AT 6AM AND TAKE FOUR TABLETS BY MOUTH EVERY DAY AT 6PM active Not Available Not Available No t Available diphenhyd ramine 25 mg capsule Take 2 capsule by mouth single dose 11/30 completed Medicati on ID: [id number] D uration Value: 1 Brand Name: diphenhy dramine HCl Send Method: E-Prescr ibed Sub s Allowed: subs OK Speci al Instruct ion: Take 50mg [address] scan Med icationG enericNa me: diphenhy dramine HCl Medi cation ID: [id number] D uration Value: 1 Brand Name: diphenhy dramine HCl Send Method: E-Prescr ibed Sub s Allowed: subs OK Speci al Instruct ion: Take 50mg [address] scan Med icationG enericNa me: diphenhy dramine HCl Not Available Not Available Not Available fluoxetin e 20 mg tablet 06/10 completed Medicati on ID: [id number] Du ration Value: 30 Reason: () Brand Name: fluoxeti ne Send Method: E-Prescr ibed Sub s Allowed: subs OK Speci al Instruct ion: TAKE 1 TABLET BY MOUTH EVERY NIGHT Me dication GenericN nida: fluoxeti ne Not Available Not Available Not Available epinephri ne 0.3 mg/0.3 mL injection , auto-inje ctor active Not Available Not Available Not Available methylpre dnisolone 4 mg tablets in a dose pack TAKE DIRECTED 11/30 completed Not Available Not Available Not Available sertralin e 50 mg tablet 11/30 completed Medicati on ID: [id number] D uration Value: 30 Brand Name: sertrali ne Send Method: E-Prescr ibed Sub s Allowed: subs OK Speci al Instruct ion: TAKE ONE TABLET BY MOUTH DAILY Me dication GenericN nida: sertrali ne Medic ation ID: [id number] D uration Value: 30 Brand Name: sertrali ne Send Method: E-Prescr ibed Sub s Allowed: subs OK Speci al Instruct ion: TAKE ONE TABLET BY MOUTH DAILY Me dication GenericN nida: sertrali ne Not Available Not Available Not Available amoxicill in 875 mg-potass ium clavulana te 125 mg tablet TAKE 1 TABLET EVERY 12 HOURS FOR 7 DAYS 06/11 completed Not Available Not Available Not Available oxycodone 5 mg tablet TAKE 1 TABLET BY MOUTH EVERY 4 TO 6 HOURS NEEDED. 06/11 completed Not Available Not Available Not Available Allergy Relief (loratadi ne) 10 mg tablet TAKE ONE TABLET BY MOUTH EVERY DAY 11/30 completed Not Available Not Available Not Available carbamaze pine ER 300 mg capsule,e xtended release [id number] 06/11 completed Medicati on ID: [id number] B rand Name: carbamaz epine Se nd Method: E-Prescr ibed Sub s Allowed: subs OK Medic ationGen ericName : carbamaz epine Me dication ID: [id number] B rand Name: carbamaz epine Se nd Method: E-Prescr ibed Sub s Allowed: subs OK Medic ationGen ericName : carbamaz epine Not Available Not Available Not Available omeprazol e 20 mg tablet,de layed release 06/10 completed Medicati on ID: [id number] Du ration Value: 30 Reason: () Brand Name: kirsten alex Send Method: E-Prescr ibed Sub s Allowed: subs OK Medic ationGen ericName : omeprafatou alex Not Available Not Available Not Available Vitals Date Recorded Body height Body weight Provider Name and Address Organization Details Last Updated DateTime 07/24/2024 177.8 cm 36853.74 g Deepika Ryder [facility] 07/24/2024 08:11:26 Date Recorded Body height Body mass index (BMI) Body weight Provider Name and Address Organization Details Last Updated DateTime 12/01/2023 177.8 cm 24.4 kg/m2 29955.7 g Deepika Ryder [facility] 12/01/2023 09:27:39 Date Recorded Body height Body mass index (BMI) Body weight Provider Name and Address Organization Details Last Updated DateTime 04/26/2024 177.8 cm 24.4 kg/m2 22232.7 g Su Abreu [facility] 04/26/2024 13:00:54 Date Recorded Body height Body mass index (BMI) Body weight Provider Name and Address Organization Details Last Updated DateTime 06/01/2024 177.8 cm 23.7 kg/m2 11369.74 g Franco Franklin [facility] 06/01/2024 13:36:29 Date Recorded Body height Body weight Provider Name and Address Organization Details Last Updated DateTime 06/11/2024 177.8 cm 04828.74 g Deepika Ryder [facility] 06/11/2024 11:49:55 Social History None recorded. Functional Status None recorded. Mental Status None recorded. Family History Nothing Reported. Medical History No medical history recorded. Past Encounters Encounter ID Performer Location Encounter Start Date Encounter Closed Date Diagnosis/Indication Diagnosis SNOMED-CT Code Diagnosis ICD10 Code Diagnosis Note [id number] STEVEN JOSEPH MD [facility] [address] [address] 12/01/2023 08:54:01 12/01/2023 10:45:18 Partial loss of ear ossicles 39194811 H74.322 Left ear continues to remain well-heale d following removal of cholesteat stephan and ossicular reconstruc tion. He does have a somewhat narrowed external auditory meatus and had excess cerumen which was debrided today. Otherwise no signs of recurrent cholesteat stephan, infection, or inflammati on.Followi ng cleaning, audiometri c testing was completed. This shows a stable mild to moderate conductive hearing loss. Today we discussed the options of continued observatio n versus considerat ion of amplificat ion in the left ear. Patient is tentativel y interested in hearing aid technology so we will set him up for a hearing aid evaluation for the left ear. Left condu ctive hearing loss [id number] 107 H90.12 Audiologic al evaluation results: Right ear: {{Normal M ild Modera te Moderat elizabeth-severe Severe Pr ofound Nor mal/mild#} } {{hearing sloping to a mild slopi ng to a moderate s loping to moderately severe* sl oping to severe slo ping to profound f lat high frequency low frequency mid frequency cookie bite donis curve}} {{with sen sorineural hearing loss with condu ctive hearing loss with* mixe d hearing loss with}} {{excellen t* good fa ir poor no measurable }} word recognitio n. Conductive component' s at 1 and 4kHz only. Left ear: {{Normal* Mild Moder ate Modera tely-sever e Severe P rofound}} {{hearing* sloping to a mild slopi ng to a moderate s loping to moderately severe slo ping to severe slo ping to profound f lat high frequency low frequency mid frequency cookie bite donis curve}} {{with* se nsorineura l hearing loss with condu ctive hearing loss with mixed hearing loss with}} {{excellen t* good fa ir poor no measurable }} word recognitio n. Tympanomet ry: Right Ear:{{Type A* Type As Type Ad Type C Type C, shallow & rounded Ty pe B Type B with large volume Cou ld not maintain a hermetic seal}} Left Ear:{{Type A* Type As Type Ad Type C Type C, shallow & rounded Ty pe B Type B with large volume Cou ld not maintain a hermetic seal}} Impacted c erumen in left ear [id number] 775490 H61.22 Acquired s tenosis of external ear canal secondary to surgery 26819186 H95.812 The narrowing of the left external auditory meatus is likely leading to tendency towards cerumen impaction and debris collection . We discussed the options of periodic cleaning under the binocular microscope versus considerat ion of a transcanal meatoplast y. Patient would like to come back in 6 months for reevaluati on and cleaning under the binocular microscope to determine the rate of accumulati on and to make plans going forward. 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 79391561 H95.812 [id number] STEVEN JOSEPH MD [facility] [address] [address] 07/24/2024 08:06:44 07/24/2024 08:27:47 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 45022430 H95.812 Health Concerns Section Related Observation LastModified by Organization Detai ls LastModified Time None Recorded Concern Status LastModified by Organization Details LastModified Time None Recorded Advance Directives Directive None Recorded Payers Encounter Date Sequence Insurance Name Policy Number Policy Mac Covered Member ID Mac Member ID Guarantor Name 12/01/2023 1 [facility] [id number] Jesus R Duplisea [id number] Jesus R Duplisea 04/26/2024 1 [facility] [id number] Jesus R Duplisea [id number] 2 Jesus R Duplisea 06/01/2024 1 [facility] [id number] Jesus R Duplisea [id number] 2 Jesus R Duplisea 06/11/2024 1 [facility] [id number] Jesus R Duplisea [id number] 2 Jesus R Duplisea 07/24/2024 1 [facility] [id number] Jesus R Duplisea [id number] Jesus R Duplisea Notes Date Note Type Note Provider Name and Address Organization Details Recorded Time 12/01/2023 text/html Patient of [facility] from back in 2005 and 2006 who was treated for left-sided cholesteatoma with 2 stage procedure, ending up with a TORP ossiculoplasty with overlying cartilage graft. Patient last seen back in 2015 at which point physical exam was stable and CAT scan of the temporal bones showed no signs of pathology in the middle ear. Last audiogram at that time showed mild residual conductive hearing loss in the left ear. Noting left ear hearing loss over the last few years. He is working with Dr. Asif for ear checks and cleaning. Apparently had audiometric testing couple of months ago showing left-sided hearing loss. Dr. Asif felt that the patient should come back to see me for further evaluation. STEVEN JOSEPH MD [address] [place] [address], [phone], [facility] - [facility] 12/01/2023 10:43:15 04/26/2024 text/html 33-year-old male with history of stable mild to moderate left-sided hearing loss status post left cholesteatoma and ossicular reconstruction presents for evaluation of recurrent otorrhea. Reports left otalgia and otorrhea 4-5 weeks ago. He was treated by primary with oral Amoxicillin. Otalgia and otorrhea returned one week ago. He feels hearing is at baseline today. Patient noted to have postoperative left-sided external auditory canal stenosis making him prone to debris impaction and infection STEVEN JOSEPH MD [address] [place] [address],[place] [address], [place], [address], [facility] - [facility] 04/26/2024 14:06:50 06/01/2024 text/html 33-year-old male present status post left meatoplasty with Dr. Joseph on 05/25/2024. Overall he is doing well. Ear pain is improving. Has been fatigued and nauseous. Denies fevers, headache, nasal congestion, and rhinitis. Has been using Ofloxacin BID. FRANCESCO EVANS MD [address] [facility],[address], [address], [place] - [facility] 06/04/2024 08:22:23 06/11/2024 text/html 33-year-old male present status post left meatoplasty on 05/25/2024. No residual pain. No problems with hearing. STEVEN JOSEPH MD [address] [facility],[address], [address], [facility] 06/11/2024 12:37:40 07/24/2024 text/html 33-year-old male present status post left meatoplasty on 05/25/2024. No residual pain. No problems with hearing, in fact thinks the hearing is more consistently improved in general. STEVEN JOSEPH MD [facility] [facility],[address], [id number], [place] - [facility] 07/24/2024 08:28:36
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
== END 2024-09-04 13:12 | disposition home or self-care (01) ==
LOC: HO.HGS 12:48
PROVIDERS: PCP Physician Assistant; Visit Provider Surgery
DX: K40.90 Unilateral inguinal hernia, without obstruction or gangrene, not specified as recurrent (principal)
CPT/HCPCS: 99214

== ENCOUNTER → 2024-09-04 12:48 | Outpatient (BNVA) | payer OTHER, SELFPAY | PROVIDERS: PCP Physician Assistant; Visit Provider Surgery ==

== ENCOUNTER 2024-09-06 03:41 | Emergency (ER) | payer OTHER, SELFPAY ==
--- NOTE | ~2024-09-06 | CT_ITS ---
EXAMINATION: CT ABDOMEN PELVIS WITH IV CONTRAST HISTORY: severe RLQ pain hx of hernia COMPARISON: There are comparison is made with the prior examination dated 08/16/2021. TECHNIQUE: CT scan of the abdomen and pelvis was performed following administration of 85 mL Omnipaque 350 using standard departmental protocol. Coronal and sagittal reformatted images were generated and reviewed. Oral contrast material was not administered at the request of the referring physician. This CT exam was performed with one or more of the following dose reduction techniques: automated exposure control, adjustment of the mA and/or kV according to patient size, use of iterative reconstruction technique. DLP: 473 mGy-cm FINDINGS: LOWER CHEST: The visualized lung bases are clear. There is no pleural effusion. CARDIOVASCULATURE: The heart is normal in size. There is no pericardial effusion. LIVER: The liver is normal in size and contour. No liver mass is identified. The hepatic and portal veins are patent. GALLBLADDER / BILE DUCTS: The gallbladder is unremarkable. There is no intra or extrahepatic biliary ductal dilatation. SPLEEN: The spleen is normal in size. No focal splenic lesion is identified. PANCREAS: The pancreas is unremarkable in appearance. ADRENAL GLANDS: Within normal limits. KIDNEYS/RETROPERITONEUM: No renal calculi are identified. There is no hydronephrosis. No renal masses are identified. LYMPH NODES: No abdominal or pelvic lymphadenopathy. VASCULATURE: The abdominal aorta is normal in caliber. MESENTERY/PERITONEUM: No free fluid. No masses. There is no free intraperitoneal gas. STOMACH: The stomach is collapsed, limiting evaluation. SMALL BOWEL: The small bowel is normal in caliber. COLON: The colon is unremarkable. APPENDIX: The appendix is surgically absent. URINARY BLADDER/PELVIC ORGANS: The urinary bladder is collapsed, limiting evaluation. The prostate is normal in size. BONES / SOFT TISSUES: No inguinal hernia is identified. The bones are intact. CT/CT abdomen pelvis w IV con IMPRESSION: Unremarkable contrast-enhanced CT of the abdomen and pelvis. Electronically signed by: Ryley Buckley MD 09/06/2024 11:04 AM EDT
[2024-09-06 03:46] VITALS: BP 140/80; PULSE 80; O2SAT 97; BMI 21.0
[2024-09-06 03:53] VITALS: BP 121/79; PULSE 78; RESP 16; TEMP 36.5; O2SAT 100
--- OUTSIDE RECORDS SUMMARY | 2024-09-06 04:05 | XMS_ITS | Data Portability ---
Author Organization [place] - [facility], Allergy Address [address] [place] [address] Care Team Providers Care Motorcyles Final Inspector Name Role Phone MCKENZIE KING Primary Care Provider [phone] Assessment Encounter Date Assessment Date Assessment LastModified [...] with the contact information for my surgical scrub tech. We will begin the scheduling process and see the patient back at the time of surgery. Patient will not require medical clearance from their primary care provider preoperatively. [email or web address] Not available 04/26/2024 14:02:17 06/01/2024 06/01/2024 The [...] he will follow up with his PCP. [email or web address] Not available 06/01/2024 15:37:23 06/11/2024 06/11/2024 The left external auditory meatus is healing well following meatoplasty. Sutures removed. No signs of inflammation or over exuberant scarring. Recommend application of bacitracin ointment to the meatus twice a day for a week, then may discontinue. All water and activity precautions are lifted. Recommend follow-up in 6 weeks for next evaluation. [email or web address] Not available 06/11/2024 12:37:25 07/24/2024 07/24/2024 The left external auditory meatus is healing well following meatoplasty. No signs of inflammation or over exuberant scarring. The canal is widely patent and drum easily visible. Recommend follow-up in 6 months to assess long-term healing result and get updated audiometric testing. [email or web address] Not available 07/24/2024 08:27:39 Plan of Treatment Reminders Order Date Submit Date Provider Last Modified By Organization Details Last Modified Time Details Appointments Establish ed 15 2024 08:45A M STEVEN JOSEPH MD Not available Not available Not available Lab None recorded. Referral None recorded. Procedures None recorded. Surgeries meatoplas ty (SURG) 2023 024 [email or web address] Not available 04/27/2024 08:24:35 Imaging None recorded. Medication Orders ondansetr on 8 mg disintegr ating tablet 2024 025 [id number], [id number] [facility], [place], [address], 06/01/2024 15:27:06 Patient TargetsNo targets recorded. Patient InstructionsNo instructions recorded. Reason for Referral None Reported. Results Created Date Observation Date Name Description Value Unit Range Abnormal Flag Note LastModifiedBy Organization Detail LastModifiedTime 12/01/19 24 audio gram No observ ation record ed. [email or web address] Not Available 11/20 14:17:02 Result Notes None recorded. Problems Name Problem SNOMED Code Status Onset Date Resolution Date Notes Provider Name and Address Organization Details Recorded Time Difficult y speaking Active 2014 Hoarsenes s; Note: Date Diagnosed : 06/28/2014 4:57 PM (784.49) Not Available [facility] 4 02:50:53 Dysphonia 81379712 Active 2014 Other voice and resonance disorders ; Note: Date Diagnosed : 11/14/2014 11:41 AM (R49.8) [mapped from ICD9 code: 784.49] Not Available [facility] 4 02:50:52 Finding of resonance of voice 274972612 Active 2014 Other voice and resonance disorders ; Note: Date Diagnosed : 11/14/2014 11:41 AM (R49.8) [mapped from ICD9 code: 784.49] Not Available [facility] 4 02:50:52 Polyp of vocal cord or larynx 480563204 Active 2014 Vocal cord polyp; Note: Date Diagnosed : 06/28/2014 4:57 PM (478.4) Not Available [facility] 4 02:50:50 Otalgia of left ear 2396849784 Active 2015 Otalgia, left ear; Note: Date Diagnosed : 02/24/2016 10:01 AM (H92.02) Not Available [facility] 4 02:50:49 Disorder of the larynx 83694154 Active 2014 Spastic Dysphonia ; Note: Date Diagnosed : 06/10/2014 9:42 AM (478.79) Not Available [facility] 4 02:50:51 Gastroeso phageal reflux disease without esophagit is 172919663 Active 2014 Esophagea l reflux NOS; Note: Date Diagnosed : 11/14/2014 11:41 AM (K21.9) [mapped from ICD9 code: 530.81] Not Available [facility] 4 02:50:49 Gastroeso phageal reflux disease 200186825 Active 2014 Laryngoph aryngeal reflux; Note: Date Diagnosed : 06/28/2014 4:57 PM (530.81) Not Available [facility] hospital 4 02:50:50 Seizure disorder 320838906 Active 2015 Seizure disorder NOS; Note: Date Diagnosed : 02/24/2016 9:50 AM (G40.909) Not Available [facility] 4 02:50:47 Pain of left temporoma ndibular joint 05800056069 755405 Active 2015 Arthralgi a of left temporoma ndibular joint; Note: Changed from M26.62 to M26.622 (04/01/20 16 3:47 PM) , Date Diagnosed : 6 11:55 AM (M26.62) Not Available [facility] 4 02:50:46 Conductiv e hearing loss 65615637 Active 2015 Conductiv e hearing loss, unilatera l, left ear, with unrestric sana hearing on the contralat eral side; Note: Date Diagnosed : 6 12:14 PM (H90.12) Not Available Critical access hospital 4 02:50:51 Partial loss of ear ossicles 69882024 Active 2023 STEVEN JOSEPH MD [address] [facility], [place], [address] , [place] - [facility] 4 18:13:38 Left conductiv e hearing loss 73342212023 07 Active 2023 STEVEN JOSEPH MD [address] [facility] [place], [place], [address] , [place] - [facility] 4 18:14:09 Impacted cerumen in left ear 64739766441 16393 Active 2023 STEVEN JOSEPH MD [address] [facility] [place],[address] [facility], [place], [address] , [place] [facility] 4 09:40:21 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 25672079 Active 2023 STEVEN JOSEPH MD [address] [facility] [place], [place], [address] , [place] [facility] 4 09:41:09 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 Procedures Surgical History Date Name Laterality Status Provider Name and Address Organization Details Recorded Time 04/26/20 24 Cerumen removal with microscope left completed STEVEN JOSEPH MD [address] [place] [address],[place] [address], [place], [address], [place] [facility] 04/26/2024 14:03:22 12/01/19 24 Comp Audio with Tymps (37118 & 43173) completed Piedad Loo [place] - [facility] 12/01/2023 10:08:08 12/01/19 24 Cerumen removal with microscope left completed STEVEN JOSEPH MD [address] [place] [address],[place] [address], [place], [address], [place] [facility] 12/01/2023 09:40:12 Appendectomy completed Deepika Ryder [place] - [facility] 12/01/2023 09:22:30 procedure on shoulder completed Deepika Ryder [place] - [facility] 12/01/2023 09:22:38 procedure on brain completed Deepika Ryder [place] - [facility] 12/01/2023 09:22:45 Imaging Results Imaging Date Name Status LastModified by Organiz ation Details LastModified Time 12/01/2023 audiogram completed [email or web address] Information n ot available 12/01/2023 14:17:02 Procedure Notes None recorded. Medical Equipment None Reported. Allergies Allergen ID Allergen Name Allergen Category Reaction Reaction Severity Criticality Documentation Date Start Date Code Code System Note Provider Name and Address Organization Details Recorded Time 808683 Substance with sulfonami de structure and antibacte rial mechanism of action (substanc e) medicatio n Not available Not available Not available 12/01/2023 43529 8003 SNOMED Deepika almodovar [place] - [facility] 09:19:48 Medications Name Sig Start Date Stop Date Status Note LastModified by Organization Details LastModified Time neomycin- polymyxin -hydrocor t 3.5 mg/mL-10, 000 unit/mL-1 % ear solution INSTILL 5 DROPS INTO THE LEFT EAR EVERY DAY 11/30 completed Not Available Not Available Not Available prazosin 1 mg capsule 11/30 completed Medicati on ID: [id number] D uration Value: 30 Brand Name: prazosin Send Method: E-Prescr ibed Sub s Allowed: subs OK Speci al Instruct ion: TAKE ONE CAPSULE BY MOUTH DAILY AT BEDTIME Medicati onGeneri cName: prazosin Medicat ion ID: [id number] D uration Value: 30 Brand Name: prazosin [...] mg tablet 11/30 completed Medicati on ID: [id number] D uration Value: 30 Brand Name: risperid one Send Method: E-Prescr ibed Sub s Allowed: subs OK Speci al Instruct ion: TAKE ONE TABLET BY MOUTH DAILY AT BEDTIME Medicati onGeneri cName: risperid one Medi cation ID: [id number] D uration Value: 30 Brand Name: risperid [...] mg tablet 08/24 completed Medicati on ID: [id number] Pr escribed By Name: JAMAL Stroud nd Name: Zofran (as hydrochl oride) S end Method: E-Prescr ibed Sub s Allowed: subs OK Speci al Instruct ion: take 1 tablet po Q8 hours as needed for nausea M jp Perezeneric Name: Zofran (as hydrochl oride) Not Available Not Available Not Available lorazepam 0.5 mg tablet 11/30 completed Medicati on ID: [id number] D uration Value: 30 Brand Name: lorazepa m Send Method: E-Prescr ibed Sub s Allowed: subs OK Speci al Instruct ion: TAKE 1/2-1 TABLET DAILY NEEDED FOR ANXIETY AND 1 TABLET DAILY AT BE DTIME FOR SLEEP Me dication GenericN nida: lorazepa m Medica tion ID: [id number] D uration Value: 30 Brand Name: lorazepa [...] single dose 11/30 completed Medicati on ID: [id number] D uration Value: 1 Brand Name: diphenhy dramine HCl Send Method: E-Prescr ibed Sub s Allowed: subs OK Speci al Instruct ion: Take 50mg [address] scan Med icationG enericNa me: diphenhy dramine HCl Medi cation ID: [id number] D uration Value: 1 Brand Name: diphenhy dramine HCl Send Method: E-Prescr ibed Sub s Allowed: subs OK Speci al Instruct ion: Take 50mg [address] scan Med icationG enericNa me: diphenhy dramine HCl Not Available Not Available Not Available fluoxetin e 20 mg tablet 06/10 completed Medicati on ID: [id number] Du ration Value: 30 Reason: () Brand [...] mg tablet 11/30 completed Medicati on ID: [id number] D uration Value: 30 Brand Name: sertrali ne Send Method: E-Prescr ibed Sub s Allowed: subs OK Speci al Instruct ion: TAKE ONE TABLET BY MOUTH DAILY Me dication GenericN nida: sertrali ne Medic ation ID: [id number] D uration Value: 30 Brand Name: sertrali [...] pine ER 300 mg capsule,e xtended release [id number] r 06/11 completed Medicati on ID: [id number] B rand Name: carbamaz epine Se nd Method: E-Prescr ibed Sub s Allowed: subs OK Medic ationGen ericName : carbamaz epine Me dication ID: [id number] B rand Name: carbamaz epine Se nd Method: E-Prescr ibed Sub s Allowed: subs OK Medic ationGen ericName : carbamaz epine Not Available Not Available Not Available omeprazol e 20 mg tablet,de layed release 06/10 completed Medicati on ID: [id number] Du ration Value: 30 Reason: () Brand Name: kirsten alex Send Method: E-Prescr ibed Sub s Allowed: subs OK Medic ationGen ericName : omeprafatou alex Not Available Not Available Not Available Vitals Date Recorded Body height Body weight Provider Name and Address Organization Details Last Updated DateTime 07/24/2024 177.8 cm [address] [facility] 07/24/2024 08:11:26 Date Recorded Body height Body mass index (BMI) Body weight Provider Name and Address Organization Details Last Updated DateTime 12/01/2023 177.8 cm 24.4 kg/m2 [address]992[address] [facility] 12/01/2023 09:27:39 Date Recorded Body height Body mass index (BMI) Body weight Provider Name and Address Organization Details Last Updated DateTime 04/26/2024 177.8 cm 24.4 kg/m2 [address]496.[address] [facility] 04/26/2024 13:00:54 Date Recorded Body height Body mass index (BMI) Body weight Provider Name and Address Organization Details Last Updated DateTime 06/01/2024 177.8 cm 23.7 kg/m2 81347.[address] [facility] 06/01/2024 13:36:29 Date Recorded Body height Body weight Provider Name and Address Organization Details Last Updated DateTime 06/11/2024 177.8 cm 11834.74 g Deepika Ryder [facility] No [facility] 06/11/2024 11:49:55 Social History None recorded. Functional Status None recorded. Mental Status None recorded. Family History Nothing Reported. Medical History No medical history recorded. Past Encounters Encounter ID Performer Location Encounter Start Date Encounter Closed Date Diagnosis/Indication Diagnosis SNOMED-CT Code Diagnosis ICD10 Code Diagnosis Note [id number] STEVEN JOSEPH MD [facility] [address] [address] 12/01/2023 08:54:01 12/01/2023 10:45:18 Partial loss of ear ossicles 81181098 H74.322 Left ear continues to remain well-heale [...] left ear. Left condu ctive hearing loss 7349228316 107 H90.12 Audiologic al evaluation results: Right [...] seal}} Impacted c erumen in left ear 7060725412 961029 H61.22 Acquired s tenosis of external ear canal secondary to surgery 83437893 H95.812 The narrowing of the left external [...] on and to make plans going forward. 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 95136272 H95.812 [id number] STEVEN JOSEPH MD [facility] [address] [address] 07/24/2024 08:06:44 07/24/2024 08:27:47 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 15702301 H95.812 Health Concerns Section Related Observation LastModified by Organization Detai ls LastModified Time None Recorded Concern Status LastModified by Organization Details LastModified Time None Recorded Advance Directives Directive None Recorded Payers Encounter Date Sequence Insurance Name Policy Number Policy Mac Covered Member ID Mac Member ID Guarantor Name 12/01/2023 1 [facility] [id number] Jesus R Duplisea [id number] 2 Jesus R Duplisea 04/26/2024 1 FORMERLY [facility] [id number] Jesus R Duplisea [id number] 2 Jesus R Duplisea 06/01/2024 1 FORMERLY [facility] [id number] Jesus R Duplisea [id number] 2 Jesus R Duplisea 06/11/2024 1 FORMERLY [facility] [id number] Jesus R Duplisea [id number] 2 Jesus R Duplisea 07/24/2024 1 [facility] [id number] Jesus R Duplisea [id number] 2 Jesus R Duplisea Notes Date Note Type Note Provider Name and Address Organization Details Recorded Time 12/01/2023 text/html Patient of [facility] from back in 2005 and 2006 who [...] me for further evaluation. STEVEN JOSEPH MD [address] [place] [address], [address], [facility] - [facility] 12/01/2023 10:43:15 04/26/2024 text/html 33-year-old male with [...] debris impaction and infection STEVEN JOSEPH MD [address] [place] [address],[place] [address], [place], [address], [facility] - [facility] 04/26/2024 14:06:50 06/01/2024 text/html 33-year-old male present status post left meatoplasty with Dr. Joseph on 05/25/2024. Overall he is doing well. Ear pain is improving. Has been fatigued and nauseous. Denies fevers, headache, nasal congestion, and rhinitis. Has been using Ofloxacin BID. FRANCESCO EVANS MD [address] [facility],[address], [address], [place] - [facility] 06/04/2024 08:22:23 06/11/2024 text/html 33-year-old male present status post left meatoplasty on 05/25/2024. No residual pain. No problems with hearing. STEVEN JOSEPH MD [address] [facility],[address], [address], [facility] 06/11/2024 12:37:40 07/24/2024 text/html 33-year-old male present status post left meatoplasty on 05/25/2024. No residual pain. No problems with hearing, in fact thinks the hearing is more consistently improved in general. STEVEN JOSEPH MD [address] [facility],[address], [address], [place] [facility] 07/24/2024 08:28:36
--- OUTSIDE RECORDS SUMMARY | 2024-09-06 04:06 | XMS_ITS | Data Portability ---
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 Chowdhury revealed no abnormality, [...] data, that July 28, 2007 EEG from [facility] revealed right frontal/frontotemp oral epileptiform discharges making epilepsy likely; but that November 13, 2015 and [facility] [place] EEG with Dr. Chowdhury revealed no abnormality, [...] data, that July 28, 2007 EEG from [facility] revealed right frontal/frontotemp oral epileptiform discharges [...] data, that July 28, 2007 EEG from [facility] revealed right frontal/frontotemp oral epileptiform discharges [...] tablet,ex tended release,1 2 hr 2024 025 [facility], [address] [place] [address], [id number], 07/16/2024 09:00:58 carbamaze pine ER 200 mg tablet,ex tended release,1 2 hr 2023 024 [facility], [address] [place] [address], [id number], 06/13/2023 08:39:26 carbamaze pine ER 200 mg tablet,ex tended release,1 2 hr 2022 023 [facility], [address] [place] [address], [id number], 07/14/2022 08:47:03 carbamaze pine ER 200 mg tablet,ex tended release,1 2 hr 2021 022 [facility], [address] [place] [address], [id number], 08/20/2021 09:29:01 Patient TargetsNo targets recorded. Patient Instructions Encounter Date Encounter Id Patient Instructions Last Modified By Organization Details Last Modified Time 07/14/2022 [id number] Discussion acros s issues of diagnoses and management and same day associated chart review and management greater than 50% greater than 30 minutes mrossen Not available 07/14/2022 08:48:18 06/13/2023 [id number] Discussion acros s issues of diagnoses and management and same day associated chart review and management greater than 50% greater than 30 minutes mrossen Not available 06/13/2023 08:28:39 07/16/2024 [id number] Discussion acros s issues of diagnoses and management and same day associated chart review and management greater than 50% greater than 30 minutes mrossen Not available 07/16/2024 08:55:00 Reason for Referral None Reported. Procedures Surgical History Date Name Laterality Status Provider Name and Address Organization Details Recorded Time 07/16/2024 DATA REVIEW completed Ricardo Ibanez MD [address] [place], [place] [address], [phone], [facility] 07/16/2024 08:54:59 06/13/2023 DATA REVIEW completed Ricardo Ibanez MD [address] [place] [address] [place], [phone], [facility] 06/13/2023 08:28:39 07/14/2022 DATA REVIEW completed Ricardo Ibanez MD [address] [place] [address] [place], [phone], [facility] 07/14/2022 08:37:52 08/20/2021 DATA REVIEW completed Ricardo Ibanez MD [address] [place], [place] [address], [phone], [facility] 08/20/2021 09:20:04 Imaging Results None recorded. Procedure Notes None recorded. Medical Equipment None Reported. Allergies Allergen ID Allergen Name Allergen Category Reaction Reaction Severity Criticality Documentation Date Start Date Code Code System Note Provider Name and Address Organization Details Recorded Time 5170 Substance with sulfonami de structure and antibacte rial mechanism of action (substanc e) medicatio n Not available Not available Not available 07/16/2024 [id number] 8003 [facility]ED [facility] 08:[facility]40 Medications Name Sig Start Date [...] Code Diagnosis Note [id number] Ricardo Ibanez MD [address] [place] [address] 08/20/2021 08:56:16 08/20/2021 09:50:00 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 [id number] Ricardo Ibanez MD [address] [place] [address] 07/14/2022 08:31:09 07/14/2022 09:50:40 Generalized convulsive epilepsy [id number] G40.309 [id number] Ricardo Ibanez MD [address] [place] [address] 06/13/2023 08:00:53 06/13/2023 09:45:26 Generalized convulsive epilepsy [id number] G40.309 [id number] Ricardo Ibanez MD [facility] [address] [place] [address] [place] [address] 07/16/2024 08:40:51 07/16/2024 15:54:09 Generalized convulsive epilepsy [id number] G40.309 Health Concerns Section Related Observation LastModified by Organization Detai ls LastModified Time None Recorded Concern Status LastModified by Organization Details LastModified Time None Recorded Advance Directives Directive None Recorded Payers Encounter Date Sequence Insurance Name Policy Number Policy Mac Covered Member ID Mac Member ID Guarantor Name 08/20/2021 2 [place] 2022 - [facility] (MEDICAID) Jesus Duplisea [id number] Jesus Duplisea 08/20/2021 1 [facility] [id number] Jesus Duplisea [id number] Jesus Duplisea 07/14/2022 2 [place] 20[place] - [facility] (MEDICAID) Jesus Duplisea [id number] Jesus Duplisea 07/14/2022 1 [facility] [id number] Jesus Duplisea [id number] Jesus Duplisea 06/13/2023 1 [facility] [id number] Jesus Duplisea [id number] Jesus Duplisea 07/16/2024 1 [facility] [id number] Jesus Duplisea [id number] Jesus Duplisea Notes Date Note Type Note [...] mood is good. 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 This is with the new company he had started working with in 2022. He has completely close down his own company that focused on [employer]. He thinks this was an excellent decision. 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, since 2022. At that time he close down his own company focused on [employer]. 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 At that time he close down his own company focused on [employer]. 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 This is with the new company he had started working with in 2022. He has completely close down his own company that focused on [employer]. He thinks this was an excellent decision. 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 Ricardo Ibanez MD [address] [place], [place] [address], [address], [facility] 07/16/2024 09:11:52
--- OUTSIDE RECORDS SUMMARY | 2024-09-06 04:06 | XMS_ITS | Clinical Summary ---
[facility] Organization [facility] Address [address] [place] [address] Care Team Providers Care Sequencing Machine Operator Name Role Phone Unavailable Primary Care Provider Unavailabl e Surgical History Surgery Date Site/Laterality Comments OTHER SURGICAL HISTORY 06-29 PROCEDURE: HISTORICAL MASTOIDECTOMY; COMMENT: left tympanossiculoplasty left tympanossiculoplasty left tympanossiculoplasty left tympanossiculoplasty ESOPHAGOGASTRODUODENOSCOPY 12/13/13 PROCEDURE: UT ESOPHAGOGASTRODUODENOSCOPY TRANSORAL DIAGNOSTIC; COMMENT: normal, with biopsies [...] risk) for development of celiac disease. Epilepsy ([facility] V24, [facility] V28) 04/29/2016 DX:Epilepsy ([facility]); COMMENT: Follows with [facility]y of [facility] on carbamazepine Bipolar disorder ([facility] V2 4, [facility] V28) 10/20/2012 DX:Bipolar disorder ([facility]); C OMMENT: On Risperidone, inpatient psych in [...] explosive disorder and mood disorder- in pt [facility] after intentional med ingestion; abilify and [...]
[2024-09-06 05:49] LABS: MANUAL DIFF FLAG NO
[2024-09-06 05:50] LABS: Appearance Urine Turbid; Basophils Percent Auto 0.4 % (0-2); Color Urine Yellow; Eosinophils Percent Auto 0.4 % (0-4); Glucose Urine UA Negative (Negative); Hematocrit 38.6 % (42.0-52.0); Hemoglobin 13.7 g/dl (14.0-18.0); Imm Gran Abs Auto 0.02 X10*3/uL (0.00-0.03); Imm Gran Pct Auto 0.4 % (0.0-0.4); Leukocyte Esterase Urine Negative (Negative); Lymphocytes Absolute Auto 1.1 X10*3/uL (1.2-4.9); Lymphocytes Percent Auto 20.4 % (20-40); Mean Corpuscular HGB Conc 35.5 g/dl (31.0-36.0); Mean Corpuscular Hemoglobin 30.2 pg (27.0-33.0); Mean Corpuscular Volume 85.2 fL (80.0-98.0); Mean Platelet Volume 9.1 fL (9.4-12.4); Monocytes Absolute Auto 0.4 X10*3/uL (0.1-1.2); Monocytes Percent Auto 7.2 % (2-11); Neutrophils Absolute Auto 3.8 x10*3/uL (2.0-8.3); Neutrophils Percent Auto 71.2 % (45-73); Nitrite Urine Negative (Negative); Platelet Count 301 X10*3/uL (160-400); Red Blood Count 4.53 X10*6/uL (4.60-5.80); Urine Blood Negative (Negative); Urine Ketones Trace mg/dL (Negative); Urine Protein Trace mg/dL (Neg-Trace); White Blood Count 5.4 X10*3/uL (4.8-10.8)
[2024-09-06 06:06] LABS: Alanine Aminotransferase 81 U/L (0-40); Albumin Level 4.3 g/dL (3.5-5.0); Anion Gap 15 (12-20); Aspartate Amino Transferase 29 U/L (5-37); Bilirubin Direct 0.1 mg/dL (0.0-0.5); Bilirubin Total 0.3 mg/dL (0.0-1.0); Blood Urea Nitrogen 10 mg/dL (9-16); Calcium 8.8 mg/dL (8.4-10.2); Carbon Dioxide 24 mmol/L (22-29); Chloride 100 mmol/L (96-108); Creatinine Clr Calc Pharmacy 141.7; Estimated Glomerular Filt Rate > 60; Glucose Random 100 mg/dL (60-115); Lipase 9 U/L (8-78); Potassium 3.7 mmol/L (3.3-5.1); Sodium 135 mmol/L (135-145); Total Protein 6.5 g/dL (6.5-8.0)
[2024-09-06 06:12] LABS: Alkaline Phosphatase 80 U/L (39-117)
--- NOTE | 2024-09-06 06:17 | PC.NURSE ---
#20g iv line placed in LAC, blood work collected and sent to lab along with urine sample. pt waiting to be seen by ED provider at this time.
--- NOTE | 2024-09-06 06:51 | ED.GENADULT ---
HPI - General Adult General Chief complaint: General Medical Stated complaint: right groin pain Time Seen by Provider: 09/06/24 06:47 Source: patient, EMS and old records reviewed Mode of arrival: EMS Limitations: no limitations History of Present Illness ED Provider: CLAIRE ERNANDEZ narrative: 33 yo male with PMH seizures and known R inguinal hernia follows with Sean he has been following instructions with lifting but he was with his daughter yesterday and lifted her. Last night he started with severe R groin pain no obvious bulging mass but then had n/v. He has no urinary symptoms. He has had a BM yesterday and is not sure if he has had flatus. He woke up with worsening pain at 230am and sought care. MD complaint: hernia Onset (ago): day(s) (last night) Location: abdomen Radiation: non-radiation Severity: severe Quality: stabbing Pain Consistency: intermittent Relieving factors: none Exacerbating factors: movement Associated symptoms: nausea/vomiting Treatments prior to arrival: none Related Data Home Medications ?Medication ?Instructions ?Recorded ?Confirmed carbamazepine 200 mg 600 mg PO DAILY@0600 02/27/20 09/04/24 tablet,extended release,12 hr carbamazepine 200 mg 800 mg PO DAILY@1800 08/16/21 09/04/24 tablet,extended release,12 hr Previous Rx's ?Medication ?Instructions ?Recorded cyclobenzaprine 10 mg tablet 10 mg PO TID PRN muscle spasm #20 09/06/24 tabs ondansetron 4 mg disintegrating 4 mg PO Q8H PRN nausea and 09/06/24 tablet vomiting #20 tabs Allergies Allergy/AdvReac Type Severity Reaction Status Date / Time bee pollen [BEE STINGS] Allergy Severe Anaphylaxis Verified 09/06/24 03:57 gluten [GLUTEN] Allergy Severe Anaphylaxis Verified 09/06/24 03:57 Sulfa (Sulfonamide Allergy Unknown ANAPHYLAXIS Verified 09/06/24 03:57 Antibiotics) [SULFA (SULFONAMIDE ANTIBIOTICS)] benztropine [From Cogentin] AdvReac Mild Urinary Verified 09/06/24 03:57 Retention Review of Systems Review of Systems: Constitutional : No Weight loss, No Fever, No Chills ENT/Mouth : No sore throat, No Rhinorrhea Eyes: No Swelling, No Redness Cardiovascular : No Chest Pain, No SOB, NoEdema Respiratory : No Cough, No Sputum, No Wheezing Gastrointestinal : Positive Nausea, Positive Vomiting, no Diarrhea, positive abdominal Pain, No Hematochezia, No Melena Genitourinary : No Dysuria, No Urinary Frequency, No Hematuria, No Urgency Musculoskeletal : No joint pain, No Myalgias, No Joint Swelling Skin : No Skin Lesions, No rash Neuro : No Weakness, No Numbness, No Dizziness, No Headache All other systems reviewed and are negative. [facility] Past Medical History Attestation statement: The following information was validated with the patient. Source: old records reviewed Medical History Acute appendicitis Epilepsy Surgical History History of laparoscopic appendectomy Hx of brain surgery Hx of colonoscopy History of esophagogastroduodenoscopy (EGD) Family History Family History Mother Hypertension Father Epilepsy Sister No problems noted. Son No problems noted. 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 Physical Exam ED Vital Signs: Vital Signs - 24 hr 09/06/24 03:53 Temperature 97.7 F Pulse Rate 78 Respiratory Rate 16 Blood Pressure 121/79 Pulse Oximetry 100 Oxygen Delivery Method Room Air BMI result Body Mass Index 21.0 Appearance: Alert. Oriented X3. No acute distress. Eyes: Pupils equal, round and reactive to light. ENT: Pharynx normal. Neck: Normal inspection. Neck supple. CVS: Normal heart rate and rhythm. Pulses normal. Respiratory: No respiratory distress. Breath sounds normal. Abdomen: Soft and not distended, RLQ is very ttp but I feel no mass or anything in scrotal sac. He has a flat stomach - he reports pain to palpation, no rebound Skin: Skin warm and dry. Normal skin color. Normal skin turgor. Extremities: No lower extremity edema. No calf ttp Neuro: Oriented X 3. No motor deficit. No sensory deficit. CN2-12 intact Course Reevaluation(s) Reevaluation #1: Patient is refusing ultrasound, will order CT scan of abdomen pelvis due to prolonged time Medications Administered Discontinued Medications Generic Name Dose Route Start Last Admin Trade Name Rojas PRN Reason Stop Dose Admin Hydromorphone HCl 0.5 mg 09/06/24 10:17 09/06/24 10:32 Hydromorphone Hcl 0.5 Mg/0.5 Ml Syringe IVPUSH 09/06/24 10:18 0.5 mg ONCE ONE Administration Protocol Lactated Ringer's 1,000 mls @ 999 mls/hr 09/06/24 07:19 09/06/24 08:40 Lr IV 09/06/24 08:19 Infused .Q1H1M ONE Infusion Iohexol 100 ml 09/06/24 10:51 09/06/24 10:52 Iohexol 350 Mg/Ml 100 Ml Infus..Btl IV 09/06/24 10:52 85 ml ONCE ONE Administration Ketorolac Tromethamine 15 mg 09/06/24 07:19 09/06/24 07:35 Ketorolac Tromethamine 15 Mg/Ml Vial IVPUSH 09/06/24 07:20 15 mg ONCE ONE Administration Morphine Sulfate 4 mg 09/06/24 07:19 09/06/24 07:36 Morphine Sulfate 4 Mg/Ml Cartridge IVPUSH 09/06/24 07:20 4 mg ONCE ONE Administration Protocol Ondansetron HCl 4 mg 09/06/24 07:19 09/06/24 07:36 Ondansetron Hcl 4 Mg/2 Ml Vial IVPUSH 09/06/24 07:20 4 mg ONCE ONE Administration Medical Decision Making Medical Decision Making MDM Narrative: 33 yo male with PMH seizures and known R inguinal hernia follows with Sean here with c/o severe R groin pain after lifting his daughter with n/v at this time I do not feel an incarcerated hernia I will obtain labs, US and start on IVF , toradol/morphine. He may need surgical consult Differential Diagnosis Differential Diagnoses: The differential diagnosis associated with the presentation includes hernia, epididymitis, abdominal pain, strain Admission/Observation Consideration of admission/observation: Escalation of care including admission/observation considered at this time labs and CT scan normal I asked if we could get testicular US but he states it his his abdomen not testicle at this time given normal CT Scan and labs can follow up outpatient Lab Data MDM Lab Attestation statement: I reviewed the patient's lab results. 09/06/24 05:43 09/06/24 05:43 Labs: Lab Results 09/06/24 Range/Units 05:43 WBC 5.4 (4.8-10.8) X10*3/uL RBC 4.53 L (4.60-5.80) X10*6/uL Hgb 13.7 L (14.0-18.0) g/dl Hct 38.6 L (42.0-52.0) % MCV 85.2 (80.0-98.0) fL MCH 30.2 (27.0-33.0) pg MCHC 35.5 (31.0-36.0) g/dl RDW 12.0 (11.0-16.0) % Plt Count 301 (160-400) X10*3/uL MPV 9.1 L (9.4-12.4) fL Immature Gran % (Auto) 0.4 (0.0-0.4) % Neut % (Auto) 71.2 (45-73) % Lymph % (Auto) 20.4 (20-40) % [place] % (Auto) 7.2 (2-11) % Eos % (Auto) 0.4 (0-4) % Baso % (Auto) 0.4 (0-2) % Lymph # (Auto) 1.1 L (1.2-4.9) X10*3/uL [place] # (Auto) 0.4 (0.1-1.2) X10*3/uL Eos # (Auto) 0.0 (0.0-0.4) X10*3/uL Baso # (Auto) 0.0 (0.0-0.2) X10*3/uL Abs Immat Gran (auto) 0.02 (0.00-0.03) X10*3/uL Absolute Neuts (auto) 3.8 (2.0-8.3) x10*3/uL Absolute Nucleated RBC 0.000 (0.0-0.012) X10*3/uL Nucleated RBC % (auto) 0.0 (0.0-0.2) /100WBC Sodium 135 (135-145) mmol/L Potassium 3.7 (3.3-5.1) mmol/L Chloride 100 (96-108) mmol/L Carbon Dioxide 24 (22-29) mmol/L Anion Gap 15 (12-20) BUN 10 (9-16) mg/dL Creatinine 0.71 (0.5-1.4) mg/dL Estim Creat Clear Calc 141.7 Estimated GFR > 60 Random Glucose 100 (60-115) mg/dL Calcium 8.8 (8.4-10.2) mg/dL Total Bilirubin 0.3 (0.0-1.0) mg/dL Direct Bilirubin 0.1 (0.0-0.5) mg/dL AST 29 (5-37) U/L ALT 81 H (0-40) U/L Alkaline Phosphatase 80 (39-117) U/L Total Protein 6.5 (6.5-8.0) g/dL Albumin 4.3 (3.5-5.0) g/dL Lipase 9 (8-78) U/L Urine Color Yellow Urine Appearance Turbid Urine pH 8.0 (5.0-9.0) Ur Specific Joshua 1.020 (1.005-1.025) Urine Protein Trace (Neg-Trace) mg/dL Urine Glucose (UA) Negative (Negative) mg/dL Urine Ketones Trace (Negative) mg/dL Urine Blood Negative (Negative) Urine Nitrite Negative (Negative) Ur Leukocyte Esterase Negative (Negative) Independent Interpretation I performed an independent interpretation of an: Ultrasound and CT Scan (normal) Radiology Impression Discussion of test interpretation with radiology: I have reviewed the radiologist's reading. Independent Historian Clinical information obtained from an independent historian. History obtained from or confirmed by: EMS External Record Review External record reviewed: Outpatient record Tests considered The following testing was considered but not selected: US he refused Prescription Management I considered prescription management with: Other Critical Care Time Critical Care Time Critical Care Time: Yes Total Critical Care Time: 35 Attestation: review of records, CT scan interpretation, lab interpretation, repeat IV morphine for pain with improvement I attest to this time spent taking care of the patient Discharge Plan Discharge Clinical Impression: Right sided abdominal pain Patient Disposition: Home, Self-Care Instructions: Abdominal Pain (ED) Additional Instructions: labs and urine reassuring no emergent cause of pain on CT scan continue to follow surgeries recommendations, return for any worsening symptoms or concerns EXAMINATION: CT ABDOMEN PELVIS WITH IV CONTRAST HISTORY: severe RLQ pain hx of hernia COMPARISON: There are comparison is made with the prior examination dated 08/16/2021. TECHNIQUE: CT scan of the abdomen and pelvis was performed following administration of 85 mL Omnipaque 350 using standard departmental protocol. Coronal and sagittal reformatted images were generated and reviewed. Oral contrast material was not administered at the request of the referring physician. This CT exam was performed with one or more of the following dose reduction techniques: automated exposure control, adjustment of the mA and/or kV according to patient size, use of iterative reconstruction technique. DLP: 473 mGy-cm FINDINGS: LOWER CHEST: The visualized lung bases are clear. There is no pleural effusion. CARDIOVASCULATURE: The heart is normal in size. There is no pericardial effusion. LIVER: The liver is normal in size and contour. No liver mass is identified. The hepatic and portal veins are patent. GALLBLADDER / BILE DUCTS: The gallbladder is unremarkable. There is no intra or extrahepatic biliary ductal dilatation. SPLEEN: The spleen is normal in size. No focal splenic lesion is identified. PANCREAS: The pancreas is unremarkable in appearance. ADRENAL GLANDS: Within normal limits. KIDNEYS/RETROPERITONEUM: No renal calculi are identified. There is no hydronephrosis. No renal masses are identified. LYMPH NODES: No abdominal or pelvic lymphadenopathy. VASCULATURE: The abdominal aorta is normal in caliber. MESENTERY/PERITONEUM: No free fluid. No masses. There is no free intraperitoneal gas. STOMACH: The stomach is collapsed, limiting evaluation. SMALL BOWEL: The small bowel is normal in caliber. COLON: The colon is unremarkable. APPENDIX: The appendix is surgically absent. URINARY BLADDER/PELVIC ORGANS: The urinary bladder is collapsed, limiting evaluation. The prostate is normal in size. BONES / SOFT TISSUES: No inguinal hernia is identified. The bones are intact. CT/CT abdomen pelvis w IV con IMPRESSION: Unremarkable contrast-enhanced CT of the abdomen and pelvis. Prescriptions: New cyclobenzaprine 10 mg tablet 10 mg PO TID PRN (Reason: muscle spasm) Qty: 20 0RF ondansetron 4 mg tablet,disintegrating 4 mg PO Q8H PRN (Reason: nausea and vomiting) Qty: 20 0RF No Action carbamazepine 200 mg tablet extended release 12 hr 800 mg PO DAILY@1800 carbamazepine 200 mg tablet extended release 12 hr 600 mg PO DAILY@0600 Stand Alone Forms: Work/School Release Print Language: Kiswahili
[2024-09-06] MEDS: Lactated Ringers 1,000 ML 999 ML IV (07:34)
[2024-09-06] MEDS: Ketorolac Tromethamine 15 MG/ML VIAL IVPUSH (07:35)
[2024-09-06] MEDS: ondansetron HCL 4 MG/2 ML VIAL IVPUSH (07:36)
[2024-09-06] MEDS: Morphine Sulfate 4 MG/ML CARTRIDGE IVPUSH (07:36)
[2024-09-06] MEDS: HYDROmorphone HCl 0.5 MG/0.5 ML SYRINGE IVPUSH (10:32)
[2024-09-06] MEDS: iohexoL 350 MG/ML 100 ML INFUS..BTL IV (10:52)
[2024-09-06 11:23] VITALS: BP 123/75; PULSE 72; RESP 16; TEMP 36.6; O2SAT 97
[2024-09-06 11:30] VITALS: BP 123/75; PULSE 72; RESP 16; TEMP 36.6; O2SAT 97
== END 2024-09-06 11:34 | disposition home or self-care (01) ==
PROVIDERS: Emergency Provider Emergency Medicine
DX: R10.31 Right lower quadrant pain (principal); R11.2 Nausea with vomiting, unspecified
CPT/HCPCS: 36415; 74177; 80048; 80076; 81003; 83690; 85025; 96361; 96374; 96375; 99284; J1171; J1885; J2270; J2405; J7120; Q9967

== ENCOUNTER → 2024-09-06 10:17 | Outpatient (BNV) | payer OTHER, SELFPAY | PROVIDERS: Emergency Provider Emergency Medicine; Visit Provider Radiology Diagnostic Radiology | DX: R10.31 Right lower quadrant pain (principal); Z87.760 Personal history of (corrected) congenital diaphragmatic hernia or other congenital diaphragm malformations | CPT/HCPCS: 74177 ==

== ENCOUNTER 2024-09-26 05:37 | Day surgery (SDC) | payer OTHER, SELFPAY ==
--- OUTSIDE RECORDS SUMMARY | 2024-09-07 12:21 | XMS_ITS | Data Portability ---
Author Organization [place] [facility], Allergy Address [address] [place] [address] Care Team Providers Care Clinical Trainer Name Role Phone MCKENZIE KING Primary Care Provider Assessment Encounter [...] with the contact information for my surgical instrument technician. We will begin the scheduling process and see the patient back at the time of surgery. Patient will not require medical clearance from their primary care provider preoperatively. [email or web address] Not available 04/26/2024 14:02:17 06/01/2024 06/01/2024 The [...] he will follow up with his PCP. Not available 06/01/2024 15:37:23 06/11/2024 06/11/2024 The left external auditory meatus is healing well following meatoplasty. Sutures removed. No signs of inflammation or over exuberant scarring. Recommend application of bacitracin ointment to the meatus twice a day for a week, then may discontinue. All water and activity precautions are lifted. Recommend follow-up in 6 weeks for next evaluation. Not available 06/11/2024 12:37:25 07/24/2024 07/24/2024 The left external auditory meatus is healing well following meatoplasty. No signs of inflammation or over exuberant scarring. The canal is widely patent and drum easily visible. Recommend follow-up in 6 months to assess long-term healing result and get updated audiometric testing. [email or web address] Not available 07/24/2024 08:27:39 Plan of Treatment Reminders Order Date Submit Date Provider Last Modified By Organization Details Last Modified Time Details Appointments Establish ed 15 2024 08:45A M STEVEN JOSEPH MD Not available Not available Not available Lab None recorded. Referral None recorded. Procedures None recorded. Surgeries meatoplas ty (SURG) 2023 024 [email or web address] Not available 04/27/2024 08:24:35 Imaging None recorded. Medication Orders ondansetr on 8 mg disintegr ating tablet 2024 025 [id number], [id number] [facility], [place], [address], 06/01/2024 15:27:06 Patient TargetsNo targets recorded. Patient InstructionsNo instructions recorded. Reason for Referral None Reported. Results Created Date Observation Date Name Description Value Unit Range Abnormal Flag Note LastModifiedBy Organization Detail LastModifiedTime 12/01/19 24 audio gram No observ ation record ed. [email or web address] Not Available 11/20 14:17:02 Result Notes None recorded. Problems Name Problem SNOMED Code Status Onset Date Resolution Date Notes Provider Name and Address Organization Details Recorded Time Difficult y speaking Active 2014 Hoarsenes s; Note: Date Diagnosed : 06/28/2014 4:57 PM (784.49) Not Available [facility] 4 02:50:53 Dysphonia 87774661 Active 2014 Other voice and resonance disorders ; Note: Date Diagnosed : 11/14/2014 11:41 AM (R49.8) [mapped from ICD9 code: 784.49] Not Available [facility] 4 02:50:52 Finding of resonance of voice 217555095 Active 2014 Other voice and resonance disorders ; Note: Date Diagnosed : 11/14/2014 11:41 AM (R49.8) [mapped from ICD9 code: 784.49] Not Available [facility] 4 02:50:52 Polyp of vocal cord or larynx 899822562 Active 2014 Vocal cord polyp; Note: Date Diagnosed : 06/28/2014 4:57 PM (478.4) Not Available [facility] 4 02:50:50 Otalgia of left ear 3937450054 Active 2015 Otalgia, left ear; Note: Date Diagnosed : 02/24/2016 10:01 AM (H92.02) Not Available [facility] 4 02:50:49 Disorder of the larynx 32003496 Active 2014 Spastic Dysphonia ; Note: Date Diagnosed : 06/10/2014 9:42 AM (478.79) Not Available [facility] 4 02:50:51 Gastroeso phageal reflux disease without esophagit is 198307713 Active 2014 Esophagea l reflux NOS; Note: Date Diagnosed : 11/14/2014 11:41 AM (K21.9) [mapped from ICD9 code: 530.81] Not Available [facility] 4 02:50:49 Gastroeso phageal reflux disease 837845172 Active 2014 Laryngoph aryngeal reflux; Note: Date Diagnosed : 06/28/2014 4:57 PM (530.81) Not Available [facility] hospital 4 02:50:50 Seizure disorder 360433420 Active 2015 Seizure disorder NOS; Note: Date Diagnosed : 02/24/2016 9:50 AM (G40.909) Not Available [facility] 4 02:50:47 Pain of left temporoma ndibular joint 26341419305 953342 Active 2015 Arthralgi a of left temporoma ndibular joint; Note: Changed from M26.62 to M26.622 (04/01/20 16 3:47 PM) , Date Diagnosed : 6 11:55 AM (M26.62) Not Available [facility] 4 02:50:46 Conductiv e hearing loss 75989387 Active 2015 Conductiv e hearing loss, unilatera l, left ear, with unrestric sana hearing on the contralat eral side; Note: Date Diagnosed : 6 12:14 PM (H90.12) Not Available Critical access hospital 4 02:50:51 Partial loss of ear ossicles 49938297 Active 2023 STEVEN JOSEPH MD [address] [facility] [address], [place], [address] , [place] [facility] 4 18:13:38 Left conductiv e hearing loss 46395488178 07 Active 2023 STEVEN JOSEPH MD [address] [facility] [place], [place], [address] , [place] [facility] 4 18:14:09 Impacted cerumen in left ear 81230338805 33909 Active 2023 STEVEN JOSEPH MD [address] [facility] [place] [facility], [place], [address] , [place] [facility] 4 09:40:21 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 19384063 Active 2023 STEVEN JOSEPH MD [address] [facility] [place], [place], [address] , [place] [facility] 4 09:41:09 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 Procedures Surgical History Date Name Laterality Status Provider Name and Address Organization Details Recorded Time 04/26/20 24 Cerumen removal with microscope left completed STEVEN JOSEPH MD [address] [place] [address],[place] [address], [place], [address], [place] [facility] 04/26/2024 14:03:22 12/01/19 24 Comp Audio with Tymps (52637 & 18523) completed Piedad Loo [place] - [facility] 12/01/2023 10:08:08 12/01/19 24 Cerumen removal with microscope left completed STEVEN JOSEPH MD [address] [place] [address],[place] [address], [place], [address], [place] [facility] 12/01/2023 09:40:12 Appendectomy completed Deepika Ryder [place] - [facility] 12/01/2023 09:22:30 procedure on shoulder completed Deepika Ryder [place] [facility] 12/01/2023 09:22:38 procedure on brain completed Deepika Ryder [place] [facility] 12/01/2023 09:22:45 Imaging Results Imaging Date Name Status LastModified by Organiz ation Details LastModified Time 12/01/2023 audiogram completed [email or web address] Information n ot available 12/01/2023 14:17:02 Procedure Notes None recorded. Medical Equipment None Reported. Allergies Allergen ID Allergen Name Allergen Category Reaction Reaction Severity Criticality Documentation Date Start Date Code Code System Note Provider Name and Address Organization Details Recorded Time [id number] Substance with sulfonami de structure and antibacte rial mechanism of action (substanc e) medicatio n Not available Not available Not available 12/01/2023 55391 8003 SNOMED Deepika almodovar [place] - [facility] 09:19:48 Medications Name Sig Start Date Stop Date Status Note LastModified by Organization Details LastModified Time neomycin- polymyxin -hydrocor t 3.5 mg/mL-10, 000 unit/mL-1 % ear solution INSTILL 5 DROPS INTO THE LEFT EAR EVERY DAY 11/30 completed Not Available Not Available Not Available prazosin 1 mg capsule 11/30 completed Medicati on ID: [id number] D uration Value: 30 Brand Name: prazosin Send Method: E-Prescr ibed Sub s Allowed: subs OK Speci al Instruct ion: TAKE ONE CAPSULE BY MOUTH DAILY AT BEDTIME Medicati onGeneri cName: prazosin Medicat ion ID: [id number] D uration Value: 30 Brand Name: prazosin [...] mg tablet 11/30 completed Medicati on ID: [id number] D uration Value: 30 Brand Name: risperid one Send Method: E-Prescr ibed Sub s Allowed: subs OK Speci al Instruct ion: TAKE ONE TABLET BY MOUTH DAILY AT BEDTIME Medicati onGeneri cName: risperid one Medi cation ID: [id number] D uration Value: 30 Brand Name: risperid [...] mg tablet 08/24 completed Medicati on ID: [id number] Pr escribed By Name: JAMAL Stroud nd Name: Zofran (as hydrochl oride) S end Method: E-Prescr ibed Sub s Allowed: subs OK Speci al Instruct ion: take 1 tablet po Q8 hours as needed for nausea M jp Perezeneric Name: Zofran (as hydrochl oride) Not Available Not Available Not Available lorazepam 0.5 mg tablet 11/30 completed Medicati on ID: [id number] D uration Value: 30 Brand Name: lorazepa m Send Method: E-Prescr ibed Sub s Allowed: subs OK Speci al Instruct ion: TAKE 1/2-1 TABLET DAILY NEEDED FOR ANXIETY AND 1 TABLET DAILY AT BE DTIME FOR SLEEP Me dication GenericN nida: lorazepa m Medica tion ID: [id number] D uration Value: 30 Brand Name: lorazepa [...] single dose 11/30 completed Medicati on ID: [id number] D uration Value: 1 Brand Name: diphenhy dramine HCl Send Method: E-Prescr ibed Sub s Allowed: subs OK Speci al Instruct ion: Take 50mg [address] scan Med icationG enericNa me: diphenhy dramine HCl Medi cation ID: [id number] D uration Value: 1 Brand Name: diphenhy dramine HCl Send Method: E-Prescr ibed Sub s Allowed: subs OK Speci al Instruct ion: Take 50mg [address] scan Med icationG enericNa me: diphenhy dramine HCl Not Available Not Available Not Available fluoxetin e 20 mg tablet 06/10 completed Medicati on ID: [id number] Du ration Value: 30 Reason: () Brand [...] mg tablet 11/30 completed Medicati on ID: [id number] D uration Value: 30 Brand Name: sertrali ne Send Method: E-Prescr ibed Sub s Allowed: subs OK Speci al Instruct ion: TAKE ONE TABLET BY MOUTH DAILY Me dication GenericN nida: sertrali ne Medic ation ID: [id number] D uration Value: 30 Brand Name: sertrali [...] pine ER 300 mg capsule,e xtended release [id number] 06/11 completed Medicati on ID: [id number] B rand Name: carbamaz epine Se nd Method: E-Prescr ibed Sub s Allowed: subs OK Medic ationGen ericName : carbamaz epine Me dication ID: [id number] B rand Name: carbamaz epine Se nd Method: E-Prescr ibed Sub s Allowed: subs OK Medic ationGen ericName : carbamaz epine Not Available Not Available Not Available omeprazol e 20 mg tablet,de layed release 06/10 completed Medicati on ID: [id number] Du ration Value: 30 Reason: () Brand Name: kirsten alex Send Method: E-Prescr ibed Sub s Allowed: subs OK Medic ationGen ericName : omeprafatou alex Not Available Not Available Not Available Vitals Date Recorded Body height Body weight Provider Name and Address Organization Details Last Updated DateTime 07/24/2024 177.8 cm 41897.74 g Deepika Ryder [facility] 07/24/2024 08:11:26 Date Recorded Body height Body mass index (BMI) Body weight Provider Name and Address Organization Details Last Updated DateTime 12/01/2023 177.8 cm 24.4 kg/m2 80542.7 g Deepika Ryder [facility] 12/01/2023 09:27:39 Date Recorded Body height Body mass index (BMI) Body weight Provider Name and Address Organization Details Last Updated DateTime 04/26/2024 177.8 cm 24.4 kg/m2 76798.7 g Su Abreu [facility] 04/26/2024 13:00:54 Date Recorded Body height Body mass index (BMI) Body weight Provider Name and Address Organization Details Last Updated DateTime 06/01/2024 177.8 cm 23.7 kg/m2 14987.74 g Franco Franklin [facility] 06/01/2024 13:36:29 Date Recorded Body height Body weight Provider Name and Address Organization Details Last Updated DateTime 06/11/2024 177.8 cm 46415.74 g Deepika Ryder [facility] No [facility] 06/11/2024 11:49:55 Social History None recorded. Functional Status None recorded. Mental Status None recorded. Family History Nothing Reported. Medical History No medical history recorded. Past Encounters Encounter ID Performer Location Encounter Start Date Encounter Closed Date Diagnosis/Indication Diagnosis SNOMED-CT Code Diagnosis ICD10 Code Diagnosis Note [id number] STEVEN JOSEPH MD [facility] [address] [address] 12/01/2023 08:54:01 12/01/2023 10:45:18 Partial loss of ear ossicles 34203345 H74.322 Left ear continues to remain well-heale [...] left ear. Left condu ctive hearing loss 5290587526 107 H90.12 Audiologic al evaluation results: Right [...] seal}} Impacted c erumen in left ear 0901789491 785101 H61.22 Acquired s tenosis of external ear canal secondary to surgery 90034991 H95.812 The narrowing of the left external [...] on and to make plans going forward. 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 28832112 H95.812 [id number] STEVEN JOSEPH MD [facility] [address] [address] 07/24/2024 08:06:44 07/24/2024 08:27:47 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 18447557 H95.812 Health Concerns Section Related Observation LastModified by Organization Detai ls LastModified Time None Recorded Concern Status LastModified by Organization Details LastModified Time None Recorded Advance Directives Directive None Recorded Payers Encounter Date Sequence Insurance Name Policy Number Policy Mac Covered Member ID Mac Member ID Guarantor Name 12/01/2023 1 [facility] [id number] Jesus R Duplisea [id number] Jesus R Duplisea 04/26/2024 1 [facility] [id number] Jesus R Duplisea [id number] Jesus R Duplisea 06/01/2024 1 [facility] [id number] Jesus R Duplisea [id number] Jesus R Duplisea 06/11/2024 1 [facility] [id number] Jesus R Duplisea [id number] Jesus R Duplisea 07/24/2024 1 [facility] [id number] Jesus R Duplisea [id number] 2 Jesus R Duplisea Notes Date Note Type Note Provider Name and Address Organization Details Recorded Time 12/01/2023 text/html Patient of [facility] from back in 2005 and 2006 who [...] me for further evaluation. STEVEN JOSEPH MD [address] [place] [address], [phone], [facility] - [facility] 12/01/2023 10:43:15 04/26/2024 text/html 33-year-old male with [...] debris impaction and infection STEVEN JOSEPH MD [address] [place] [address],[place] [address], [place], [address], [facility] - [facility] 04/26/2024 14:06:50 06/01/2024 text/html 33-year-old male present status post left meatoplasty with Dr. Joseph on 05/25/2024. Overall he is doing well. Ear pain is improving. Has been fatigued and nauseous. Denies fevers, headache, nasal congestion, and rhinitis. Has been using Ofloxacin BID. FRANCESCO EVANS MD [address] [facility],[address], [address], [place] - [facility] 06/04/2024 08:22:23 06/11/2024 text/html 33-year-old male present status post left meatoplasty on 05/25/2024. No residual pain. No problems with hearing. STEVEN JOSEPH MD [address] [facility],[address], [address], [facility] 06/11/2024 12:37:40 07/24/2024 text/html 33-year-old male present status post left meatoplasty on 05/25/2024. No residual pain. No problems with hearing, in fact thinks the hearing is more consistently improved in general. STEVEN JOSEPH MD [address] [facility],[address], [address], [place] [facility] 07/24/2024 08:28:36
--- OUTSIDE RECORDS SUMMARY | 2024-09-07 12:21 | XMS_ITS | Clinical Summary ---
Author Organization [facility] Address [address] [place] [address] Care Team Providers Care Obstetrical Nurse Name Role Phone Unavailable Primary Care Provider Unavailabl e Surgical History Surgery Date Site/Laterality Comments OTHER SURGICAL HISTORY 06-29 PROCEDURE: HISTORICAL MASTOIDECTOMY; COMMENT: left tympanossiculoplasty left tympanossiculoplasty left tympanossiculoplasty left tympanossiculoplasty ESOPHAGOGASTRODUODENOSCOPY 12/13/13 PROCEDURE: SD ESOPHAGOGASTRODUODENOSCOPY TRANSORAL DIAGNOSTIC; COMMENT: normal, with biopsies [...] risk) for development of celiac disease. Epilepsy ([facility] V24, [facility] V28) 04/29/2016 DX:Epilepsy ([facility]); COMMENT: Follows with neurology of [facility] on carbamazepine Bipolar disorder ([facility] V2 4, [facility] V28) 10/20/2012 DX:Bipolar disorder ([facility]); C OMMENT: On Risperidone, inpatient psych in [...] explosive disorder and mood disorder- in pt [facility] after intentional med ingestion; abilify and [...]
--- OUTSIDE RECORDS SUMMARY | 2024-09-07 12:21 | XMS_ITS | Data Portability ---
Author Organization [email or web address], Reimage Address [address] [place] [address] [place] [phone] Care Team Providers Care Keypuncher Name Role Phone RICARDO WEAVER Referring Provider [...] data, that July 28, 2007 EEG from [facility] revealed right frontal/frontotemp oral epileptiform discharges making [...] data, that July 28, 2007 EEG from [facility] revealed right frontal/frontotemp oral epileptiform discharges making [...] data, that July 28, 2007 EEG from [facility] revealed right frontal/frontotemp oral epileptiform discharges making [...] data, that July 28, 2007 EEG from [facility] revealed right frontal/frontotemp oral epileptiform discharges making [...] tablet,ex tended release,1 2 hr 2024 025 [place] [facility], [address] [place] [address], [id number], 07/16/2024 09:00:58 carbamaze pine ER 200 mg tablet,ex tended release,1 2 hr 2023 024 [place] [facility], [address] [place] [address], [id number], 06/13/2023 08:39:26 carbamaze pine ER 200 mg tablet,ex tended release,1 2 hr 2022 023 [place] [facility], [address] [place] [address], [id number], 07/14/2022 08:47:03 carbamaze pine ER 200 mg tablet,ex tended release,1 2 hr 2021 022 [place] [facility], [address] [place] [address], [id number], 08/20/2021 09:29:01 Patient TargetsNo targets recorded. Patient Instructions Encounter Date Encounter Id Patient Instructions Last Modified By Organization Details Last Modified Time 07/14/2022 [id number] Discussion acros s issues of diagnoses and management and same day associated chart review and management greater than 50% greater than 30 minutes mrossen Not available 07/14/2022 08:48:18 06/13/2023 [id number] Discussion acros s issues of diagnoses and management and same day associated chart review and management greater than 50% greater than 30 minutes mrossen Not available 06/13/2023 08:28:39 07/16/2024 [id number] Discussion acros s issues of diagnoses and management and same day associated chart review and management greater than 50% greater than 30 minutes mrossen Not available 07/16/2024 08:55:00 Reason for Referral None Reported. Procedures Surgical History Date Name Laterality Status Provider Name and Address Organization Details Recorded Time 07/16/2024 DATA REVIEW completed Ricardo Ibanez MD [address] [place], [place] [address] [place], [phone], [facility] 07/16/2024 08:54:59 06/13/2023 DATA REVIEW completed Ricardo Ibanez MD [address] [place] [address] [place], [phone], [facility] 06/13/2023 08:28:39 07/14/2022 DATA REVIEW completed Ricardo Ibanez MD [address] [place] [address] [place], [phone], [facility] 07/14/2022 08:37:52 08/20/2021 DATA REVIEW completed Ricardo Ibanez MD [address] [place], [place] [address], [phone], [facility] 08/20/2021 09:20:04 Imaging Results None recorded. Procedure Notes None recorded. Medical Equipment None Reported. Allergies Allergen ID Allergen Name Allergen Category Reaction Reaction Severity Criticality Documentation Date Start Date Code Code System Note Provider Name and Address Organization Details Recorded Time 1007 Substance with sulfonami de structure and antibacte rial mechanism of action (substanc e) medicatio n Not available Not available Not available 07/16/2024 47030 8003 [facility]ED [facility] 08:[facility]40 Medications Name Sig Start Date [...] Code Diagnosis Note [id number] Ricardo Ibanez MD [address] [place] [address] 08/20/2021 08:56:16 08/20/2021 09:50:00 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 [id number] Ricardo Ibanez MD [address] [place] [address] 07/14/2022 08:31:09 07/14/2022 09:50:40 Generalized convulsive epilepsy [id number] G40.309 [id number] Ricardo Ibanez MD [address] [place] [address] 06/13/2023 08:00:53 06/13/2023 09:45:26 Generalized convulsive epilepsy [id number] G40.309 [id number] Ricardo Ibanez MD [facility] [address] [place] [address] [place] [address] 07/16/2024 08:40:51 07/16/2024 15:54:09 Generalized convulsive epilepsy [id number] G40.309 Health Concerns Section Related Observation LastModified by Organization Detai ls LastModified Time None Recorded Concern Status LastModified by Organization Details LastModified Time None Recorded Advance Directives Directive None Recorded Payers Encounter Date Sequence Insurance Name Policy Number Policy Mac Covered Member ID Mac Member ID Guarantor Name 08/20/2021 2 [place] 2022 - [facility] (MEDICAID) Jesus Duplisea [id number] Jesus Duplisea 08/20/2021 1 [facility] [id number] Jesus Duplisea [id number] Jesus Duplisea 07/14/2022 2 [place] 2022 - [facility] (MEDICAID) Jesus Duplisea [id number] Jesus Duplisea 07/14/2022 1 [facility] [id number] Jesus Duplisea [id number] Jesus Duplisea 06/13/2023 1 [facility] [id number] Jesus Duplisea [id number] Jesus Duplisea 07/16/2024 1 [facility] [id number] Jesus Duplisea [id number] Jesus Duplisea Notes Date Note Type Note [...] mood is good. 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 This is with the new company he had started working with in 2022. He has completely close down his own company that focused on [email or web address]. He thinks this was an excellent decision. 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 At that time he close down his own company focused on [email or web address]. 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 At that time he close down his own company focused on [employer]. 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 This is with the new company he had started working with in 2022. He has completely close down his own company that focused on [employer]. He thinks this was an excellent decision. 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 Ricardo Ibanez MD [address] [place], [place] [address], [phone], [facility] 07/16/2024 09:11:52
[2024-09-24 09:32] VITALS: BMI 24.2
--- NOTE | 2024-09-24 14:55 | P.CONAN_ITS ---
Documented by User: Elle Scott NP 09/24/24 14:56 HPI - Anesthesia Eval Consult details Narrative: 33yo M for Right Hernia Inguinal Reducible with mesh PMFSH Active Problems Active Problems: All Active Problems (Updated 09/24/24 @ 09:24 by Bonita Mcqueen RN) Reducible right inguinal hernia (Acute) S/P laparoscopic appendectomy (Acute) Subungual hematoma of digit of hand (Acute) Acute paronychia of left thumb (Acute) Crushing injury of left thumb (Acute) History of Clostridioides difficile colitis (Acute) Right sided abdominal pain (Acute) Irritable bowel syndrome with both constipation and diarrhea (Acute) Celiac disease (Acute) Concussion (Acute) Past Medical History Medical History Norovirus Celiac disease Epilepsy Family History Family History Mother Hypertension Father Epilepsy Sister No problems noted. Son No problems noted. Family history of problems with anesthesia: No Surgical History Surgical History History of ear surgery History of laparoscopic appendectomy Hx of brain surgery Hx of colonoscopy History of esophagogastroduodenoscopy (EGD) History of Problems with Anesthesia: No Social History Social History Household Members: Spouse Housing: House Are you a primary hearing healthcare practitioner to a significant other at home: No Do you presently have visiting nurse or other home services: No Alcohol intake: never Patient Tobacco Use Status: Never used Tobacco service: No Current occupational status: employed 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 Meds Allergies Allergy/AdvReac Type Severity Reaction Status Date / Time bee pollen [BEE STINGS] Allergy Severe Anaphylaxis Verified 09/26/24 06:19 gluten [GLUTEN] Allergy Severe Anaphylaxis Verified 09/26/24 06:19 Sulfa (Sulfonamide Allergy Severe ANAPHYLAXIS Verified 09/26/24 06:19 Antibiotics) [SULFA (SULFONAMIDE ANTIBIOTICS)] benztropine [From Cogentin] AdvReac Mild Urinary Verified 09/26/24 06:19 Retention Home Medications ?Medication ?Instructions ?Recorded ?Confirmed ?Last Taken ?Type carbamazepine 200 mg 600 mg PO DAILY@0600 10/07/20 05/07/25 05/07/25 History tablet,extended release,12 hr carbamazepine 200 mg 800 mg PO DAILY@1800 08/16/21 09/24/24 08/15/21 History tablet,extended release,12 hr epinephrine 0.3 mg/0.3 mL 0.3 mg IM ONCE PRN anaphylaxis 09/24/24 09/24/24 Unknown History injection, auto-injector Exam Height,Weight and Vital Signs: Height 5 ft 10.08 in Weight 76.8 kg Assessment and Plan Assessment Anesthesia Assessment: Chart Reviewed Final Anesthetic Review Family History of Problems with Anesthesia: No History of Problems with Anesthesia: No Documented by User: Michelle Conner MD 09/26/24 08:22 HPI - Anesthesia Eval Consult details Narrative: 33yo M for Right Hernia Inguinal Reducible with mesh. PMFSH Active Problems Active Problems: All Active Problems (Updated 09/26/24 @ 07:20 by Michelle Conner MD) Reducible right inguinal hernia (Acute) S/P laparoscopic appendectomy (Acute) Subungual hematoma of digit of hand (Acute) Acute paronychia of left thumb (Acute) Crushing injury of left thumb (Acute) History of Clostridioides difficile colitis (Acute) Right sided abdominal pain (Acute) Irritable bowel syndrome with both constipation and diarrhea (Acute) Celiac disease (Acute) Concussion (Acute) Epilepsy- had a seizure about 1 month ago after not having for 10 years. Followed bout of vomiting and diarrhea secondary to Norovirus infection. Seizure thought to be as a result of non- absorption of medication Raspy voice- had vocal cord injection with botox Past Medical History Medical History Norovirus Celiac disease Epilepsy Family History Family History Mother Hypertension Father Epilepsy Sister No problems noted. Son No problems noted. Family history of problems with anesthesia: No Surgical History Surgical History History of ear surgery History of laparoscopic appendectomy Hx of brain surgery Hx of colonoscopy History of esophagogastroduodenoscopy (EGD) History of Problems with Anesthesia: No (Had problems with vocal cords following botox injection- not sure if due to anesthesia or procedure itself) Social History Social History Household Members: Spouse Housing: House Are you a primary hearing healthcare practitioner to a significant other at home: No Do you presently have visiting nurse or other home services: No Alcohol intake: never Patient Tobacco Use Status: Never used Tobacco service: No Current occupational status: employed 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 Meds Allergies Allergy/AdvReac Type Severity Reaction Status Date / Time bee pollen [BEE STINGS] Allergy Severe Anaphylaxis Verified 09/26/24 06:19 gluten [GLUTEN] Allergy Severe Anaphylaxis Verified 09/26/24 06:19 Sulfa (Sulfonamide Allergy Severe ANAPHYLAXIS Verified 09/26/24 06:19 Antibiotics) [SULFA (SULFONAMIDE ANTIBIOTICS)] benztropine [From Cogentin] AdvReac Mild Urinary Verified 09/26/24 06:19 Retention Home Medications ?Medication ?Instructions ?Recorded ?Confirmed ?Last Taken ?Type carbamazepine 200 mg 600 mg PO DAILY@0600 02/27/20 09/26/24 09/26/24 History tablet,extended release,12 hr carbamazepine 200 mg 800 mg PO DAILY@1800 08/16/21 09/24/24 08/15/21 History tablet,extended release,12 hr epinephrine 0.3 mg/0.3 mL 0.3 mg IM ONCE PRN anaphylaxis 09/24/24 09/24/24 Unknown History injection, auto-injector Exam Height,Weight and Vital Signs: Height 5 ft 10.08 in Weight 76.8 kg Vital Signs Temp Pulse Resp BP Pulse Ox O2 Del Method 09/26/24 06:23 97.8 F 70 14 121/78 97 Room Air Airway Mallampati Class: II (Small mouth) TM Dist: >3cm Neck ROM: Full Loose/Missing/Broken Teeth: Yes (Missing some molars. Denies broken or loose teeth) Heart: RRR Lungs: CTAB Assessment and Plan Assessment Anesthesia Assessment: Anesthesia Plan Discussed and Chart Reviewed Final Anesthetic Review Family History of Problems with Anesthesia: No History of Problems with Anesthesia: No (Had problems with vocal cords following botox injection- not sure if due to anesthesia or procedure itself) NPO: Yes ASA Class: III Final Preanesthetic Review: No Changes in Pt Med Stat, Meds/Allgs Chart Reviewed, Consent Obtained/Reviewed and Anes Risks/Benef Reviewed Patient Risk: Intermediate Procedure Risk: Low Assessment/Block/Sedation in SS: Assess/Block/Sedation-SS Anesthetic Plan Anesthetic Plan: GA Disposition: Standard PACU
[2024-09-26] VITALS (11 sets, daily range): BP systolic 108–128; BP diastolic 54–83; PULSE 65–87; RESP 10–20; TEMP 36.2–36.8; O2SAT 97–100; BMI 24.0
[2024-09-26] MEDS: Lactated Ringers 1,000 ML 100 ML IVCONT (06:27)
--- NOTE | 2024-09-26 07:29 | P.HPSUR_ITS ---
Pre-Procedural Eval Section A - 24 Hr Update-Section A only Date of Service: 09/26/24 The patient is an INPATIENT: No Changes since office visit: Yes Patient answered all questions; No Cold of Flu in the past 2 weeks, No New Medical Problems and No Changes in Medication The patient has been examined within 24 hours of the surgical procedure. The History & Physical has been completed within 30 days and I have reviewed it.: No Section B - Complete if H&P > 30 days Chief Complaint: Unilateral inguinal hernia, without obstruction Details of Present Illness: No change in abdominal symptoms Relevant Family History (Specify if Yes): No Relevant Social History: None Present Medications: see Short Stay Collaborative assessment Medical History: No relevant PMH History of Previous Operations: No relevant previous surgery Allergies: Allergies Allergy/AdvReac Type Severity Reaction Status Date / Time bee pollen [BEE STINGS] Allergy Severe Anaphylaxis Verified 09/26/24 06:19 gluten [GLUTEN] Allergy Severe Anaphylaxis Verified 09/26/24 06:19 Sulfa (Sulfonamide Allergy Severe ANAPHYLAXIS Verified 09/26/24 06:19 Antibiotics) [SULFA (SULFONAMIDE ANTIBIOTICS)] benztropine [From Cogentin] AdvReac Mild Urinary Verified 09/26/24 06:19 Retention Review of Systems Sugical H&P ROS: Negative: Constitution, Cardiovascular, Respiratory, Neur ological, Psychiatric, Hem-Onc, Allergic/Immunologic, Gastrointestinal, Genitourinary, Musculoskeletal and Integumentary Exam Surgical H&P Exam: Normal: HEENT, Normal: Heart, Normal: Lungs, Normal: Extremities, Normal: Abdomen and Normal: Skin Plan Diagnosis/Plan: Unchanged I have reviewed the history and physical and performed a pertinent physical examination on my patient. No changes have occurred unless specified. Time Spent With Patient Time: Total time managing care of this patient today ____ minutes.
[2024-09-26] MEDS: ceFAZolin Sodium/Dextrose,Iso 2 GM/50 ML PIGGYBACK IV (07:45)
--- NOTE | 2024-09-26 08:16 | P.OP_ITS ---
Operative Note Operative Note Date of Service: 09/26/24 Narrative: Preoperative diagnosis: Right inguinal hernia, reducible Postoperative diagnosis: Same Procedure: Repair of right inguinal hernia with mesh Surgeon: Gustavo Estrada MD Engravings Polisher: Emely Meza PA-C, SHANNAN Mesa Anesthesia: General LMA Indications for procedure: 33-year-old male patient presenting with a palpable right inguinal hernia which was found to be reducible with light pressure. Operative findings: Reducible right inguinal hernia, direct with no indirect component. Specimen: None Estimated blood loss: Less than 2 mL Complications: None Procedure details: Patient was brought to the OR and placed in a supine position. After administering general anesthesia the patient's abdomen was prepped with ChloraPrep and draped in a sterile fashion. A surgical time-out was called the consent confirmed. Patient received preoperative antibiotics and Venodyne boots were in place. Local anesthesia consisting of 0.5% Sensorcaine was infiltrated over the right inguinal ligament. Incision was then made with a scalpel and carried out through subcutaneous tissue, past Bryant's fashion up to the external oblique aponeurosis. Additional local was then infiltrated below the external oblique aponeurosis. This was then incised with a scalpel widened with the Metzenbaum scissors. The spermatic cord was then dissected free from the surrounding inguinal canal and retracted using a Valentín drain. The floor of the inguinal canal was found to have a area of weakness suggestive of a direct inguinal hernia. Fibers of the cremaster muscle were then and no indirect component could be identified. Attention was then directed to the floor of the inguinal canal. Fibers of the internal oblique aponeurosis were then grasped using an Allis clamp. This was then incised past the internal oblique and transversalis into the preperitoneal space. This was then widened using a open Ray-Yee sponge. A large PHS mesh was then obtained. The circular underlay was deployed within the preperitoneal space. The overlay was then secured to the pubic tubercle, conjoined tendon and shelving edge of the inguinal ligament using a 0 Polysorb suture. A slit was made in the mesh in the mesh wrapped around the spermatic cord at the internal ring. This was then secured to the shelving edge using the 0 Polysorb suture. The mesh was wrapped to allow the tip of the index finger to pass at the internal ring. Wounds were then irrigated with saline solution and suctioned dry. External oblique aponeurosis was then closed using a running 2-0 Polysorb suture. Approximately 8 mL of Zenrelef was then instilled below the external oblique aponeurosis. Bryant's fascia and dermis were reapproximated using interrupted 3-0 Polysorb sutures. Skin was then closed using a running subcuticular 4-0 Polysorb suture. Steri-Strips, 4 x 4 gauze and Tegaderm were then applied. The patient tolerated the procedure well. Sponge, instrument, needle counts reported as correct. The patient was transferred to PACU in stable condition.
[2024-09-26] MEDS: ondansetron HCL 4 MG/2 ML VIAL IVPUSH (08:45)
[2024-09-26] MEDS: oxyCODONE HCl Immed Release 5 MG TABLET PO (08:55)
[2024-09-26] MEDS: fentaNYL citrate/PF 100 MCG/2 ML VIAL 25 MCG IVPUSH ×2 (09:04→09:25)
== END 2024-09-26 10:05 | disposition home or self-care (01) ==
PROVIDERS: Visit Provider Surgery
PROC: (CPT 49505; principal; 2024-09-26 07:30)
DX: K40.90 Unilateral inguinal hernia, without obstruction or gangrene, not specified as recurrent (principal); G40.909 Epilepsy, unspecified, not intractable, without status epilepticus; Z79.899 Other long term (current) drug therapy; Z88.2 Allergy status to sulfonamides; Z88.8 Allergy status to other drugs, medicaments and biological substances; K90.41 Non-celiac gluten sensitivity; Z98.890 Other specified postprocedural states
CPT/HCPCS: 49505; C1781; C9088; J0131; J0690; J1100; J2003; J2250; J2405; J2704; J2795; J3010

== ENCOUNTER → 2024-09-26 05:37 | Outpatient (BNV) | payer OTHER, SELFPAY | PROVIDERS: Visit Provider Surgery | DX: K40.90 Unilateral inguinal hernia, without obstruction or gangrene, not specified as recurrent (principal) | CPT/HCPCS: 49505 ==

== ENCOUNTER 2024-10-04 08:58 | Outpatient (AMB) | payer OTHER, SELFPAY ==
--- NOTE | 2024-10-04 09:05 | A.OFFVIS_ITS ---
Vital Signs 10/04/24 09:12 Height 5 ft 10 in Weight 170 lb BMI 24.4 BP 124/75 Blood Pressure Location Lt brachial Position Sitting Pulse 78 Intake Visit Reasons: s/p RIH w/mesh Intake Note: Patient is seen in office for post op assessment post repair of right inguinal hernia. Pt c/o: admits to sore, tender, bruise, denies redness, discharge, taking Tylenol for pain as needed surgery:09/26/24 Reporting Process Consultant Required: No Accompanied by: Self / Same As Patient Allergies bee pollen [BEE STINGS] Allergy (Severe, Verified 10/04/24 09:11) Anaphylaxis gluten [GLUTEN] Allergy (Severe, Verified 10/04/24 09:11) Anaphylaxis Sulfa (Sulfonamide Antibiotics) [SULFA (SULFONAMIDE ANTIBIOTICS)] Allergy (Severe, Verified 10/04/24 09:11) ANAPHYLAXIS benztropine [From Cogentin] Adverse Reaction (Mild, Verified 10/04/24 09:11) Urinary Retention HPI Comments Details: 33-year-old male patient returning 1 week following a repair of a right inguinal hernia with mesh on 09/26/2024. He was found to have a direct inguinal hernia and was repaired using a large PHS mesh. He tolerated the procedure well but does note some swelling in the incision and into the testicle. Overall the pain is improving and he is now using ibuprofen as needed. He denies any bleeding or discharge from the incision. [facility] Medical History Norovirus Celiac disease Epilepsy Surgical History History of right inguinal hernia repair (09/26/24) History of ear surgery History of laparoscopic appendectomy Hx of brain surgery Hx of colonoscopy History of esophagogastroduodenoscopy (EGD) Family History Mother Hypertension Father Epilepsy Sister No problems noted. Son No problems noted. 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 Physical Exam Const General: no acute distress Nutritional Appearance: well nourished Orientation/consciousness: patient oriented x3 Resp Effort & Inspection: normal respiratory effort, no audible wheezes, no cough and no respiratory distress GI Other: Right inguinal incision is clean, dry, and intact without redness or discharge. No evidence of hernia recurrence or infection. Palpation (GI): Soft to palpation, nontender and no guarding Neuro General: patient oriented x3 Extrem Other: No edema Assessment & Plan Assessment & Plan (1) Reducible right inguinal hernia: Code(s): K40.90 - Unilateral inguinal hernia, without obstruction or gangrene, not specified as recurrent Category: Medical Plan 33-year-old male returning 1 week following repair of a right inguinal hernia with mesh. He tolerated the procedure well in his wounds are healing nicely. He continues to have some soreness but this is improving. I recommended he continue to avoid lifting greater than 10 lb for the next month. He should return at that time for wound check prior to return to normal activity. Coding Level of Care Code Global (79040) Diagnoses Reducible right inguinal hernia K40.90
[2024-10-04 09:12] VITALS: BP 124/75; PULSE 78; BMI 24.4
--- OUTSIDE RECORDS SUMMARY | 2024-10-04 09:28 | XMS_ITS | Data Portability ---
Author Organization [place] - [facility], Allergy Address [address] [place] [address] Care Team Providers Care Customer Sales Service Manager Name Role Phone MCKENZIE KING Primary Care [...] patient with the contact information for my hand frame surgical elastic knitter. We will begin the scheduling process and [...] follow-up in 6 weeks for next evaluation. [email or web address] Not available 06/11/2024 12:37:25 07/24/2024 07/24/2024 The left external auditory meatus is healing well following meatoplasty. No signs of inflammation or over exuberant scarring. The canal is widely patent and drum easily visible. Recommend follow-up in 6 months to assess long-term healing result and get updated audiometric testing. [email or web address] Not available 07/24/2024 08:27:39 Plan of Treatment Reminders Order Date Submit Date Provider Last Modified By Organization Details Last Modified Time Details Appointments Establish ed 15 2024 08:45A M STEVEN JOSEPH MD Not available Not available Not available Lab None recorded. Referral None recorded. Procedures None recorded. Surgeries meatoplas ty (SURG) 2023 024 Not available 04/27/2024 08:24:35 Imaging None recorded. Medication Orders ondansetr on 8 mg disintegr ating tablet 2024 025 [id number], [id number], [place], [address], 06/01/2024 15:27:06 Patient TargetsNo targets recorded. Patient InstructionsNo instructions recorded. Reason for Referral None Reported. Results Created Date Observation Date Name Description Value Unit Range Abnormal Flag Note LastModifiedBy Organization Detail LastModifiedTime 12/01/19 24 audio gram No observ ation record ed. [email or web address] Not Available 11/20 14:17:02 Result Notes None recorded. Problems Name Problem SNOMED Code Status Onset Date Resolution Date Notes Provider Name and Address Organization Details Recorded Time Difficult y speaking Active 2014 Hoarsenes s; Note: Date Diagnosed : 06/28/2014 4:57 PM (784.49) Not Available [facility] 4 02:50:53 Dysphonia 40539304 Active 2014 Other voice and resonance disorders ; Note: Date Diagnosed : 11/14/2014 11:41 AM (R49.8) [mapped from ICD9 code: 784.49] Not Available [facility] 4 02:50:52 Finding of resonance of voice 236478081 Active 2014 Other voice and resonance disorders ; Note: Date Diagnosed : 11/14/2014 11:41 AM (R49.8) [mapped from ICD9 code: 784.49] Not Available [facility] 4 02:50:52 Polyp of vocal cord or larynx 321628330 Active 2014 Vocal cord polyp; Note: Date Diagnosed : 06/28/2014 4:57 PM (478.4) Not Available [facility] 4 02:50:50 Otalgia of left ear 3145349915 Active 2015 Otalgia, left ear; Note: Date Diagnosed : 02/24/2016 10:01 AM (H92.02) Not Available [facility] 4 02:50:49 Disorder of the larynx 02168179 Active 2014 Spastic Dysphonia ; Note: Date Diagnosed : 06/10/2014 9:42 AM (478.79) Not Available [facility] 4 02:50:51 Gastroeso phageal reflux disease without esophagit is 578669780 Active 2014 Esophagea l reflux NOS; Note: Date Diagnosed : 11/14/2014 11:41 AM (K21.9) [mapped from ICD9 code: 530.81] Not Available [facility] 4 02:50:49 Gastroeso phageal reflux disease 782295823 Active 2014 Laryngoph aryngeal reflux; Note: Date Diagnosed : 06/28/2014 4:57 PM (530.81) Not Available [facility] 4 02:50:50 Seizure disorder 737833077 Active 2015 Seizure disorder NOS; Note: Date Diagnosed : 02/24/2016 9:50 AM (G40.909) Not Available [facility] 4 02:50:47 Pain of left temporoma ndibular joint 39181818539 876183 Active 2015 Arthralgi a of left temporoma ndibular joint; Note: Changed from M26.62 to M26.622 (04/01/20 16 3:47 PM) , Date Diagnosed : 6 11:55 AM (M26.62) Not Available [facility] 4 02:50:46 Conductiv e hearing loss 56119286 Active 2015 Conductiv e hearing loss, unilatera l, left ear, with unrestric sana hearing on the contralat eral side; Note: Date Diagnosed : 6 12:14 PM (H90.12) Not Available [facility] 4 02:50:51 Partial loss of ear ossicles 01415587 Active 2023 STEVEN JOSEPH MD [address] [facility], [place], [address] , [place] - [facility] 4 18:13:38 Left conductiv e hearing loss 58459296666 07 Active 2023 STEVEN JOSEPH MD [address] [facility], [place], [address] , [place] - [facility] 4 18:14:09 Impacted cerumen in left ear 14392812401 92735 Active 2023 STEVEN JOSEPH MD [address] [facility] [facility], [place], [address] , [place] - [facility] 4 09:40:21 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 27752560 Active 2023 STEVEN JOSEPH MD [address] [facility], [place], [address] , [place] - [facility] 4 09:41:09 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 Procedures Surgical History Date Name Laterality Status Provider Name and Address Organization Details Recorded Time 04/26/20 24 Cerumen removal with microscope left completed STEVEN JOSEPH MD [address] [place] [address],[place] [address], [place], [address], [place] - [facility] 04/26/2024 14:03:22 12/01/19 24 Comp Audio with Tymps - 30522 & 32574 completed Piedad Loo [place] - [facility] 12/01/2023 10:08:08 12/01/19 24 Cerumen removal with microscope left completed STEVEN JOSEPH MD [address] [place] [address],[place] [address], [place], [address], [place] - [facility] 12/01/2023 09:40:12 Appendectomy completed Deepika Ryder [place] - [facility] 12/01/2023 09:22:30 procedure on shoulder completed Deepika Ryder [place] - [facility] 12/01/2023 09:22:38 procedure on brain completed Deepika Ryder [place] - [facility] 12/01/2023 09:22:45 Imaging Results Imaging Date Name Status LastModified by Organiz ation Details LastModified Time 12/01/2023 audiogram completed Information n ot available 12/01/2023 14:17:02 Procedure Notes None recorded. Medical Equipment None Reported. Allergies Allergen ID Allergen Name Allergen Category Reaction Reaction Severity Criticality Documentation Date Start Date Code Code System Note Provider Name and Address Organization Details Recorded Time 404269 Substance with sulfonami de structure and antibacte rial mechanism of action (substanc e) medicatio n Not available Not available Not available 12/01/2023 41761 8003 SNOMED Deepika almodovar [place] - [facility] 09:19:48 Medications Name Sig Start Date Stop Date Status Note LastModified by Organization Details LastModified Time neomycin- polymyxin -hydrocor t 3.5 mg/mL-10, 000 unit/mL-1 % ear solution INSTILL 5 DROPS INTO THE LEFT EAR EVERY DAY 11/30 completed Not Available Not Available Not Available prazosin 1 mg capsule 11/30 completed Medicati on ID: [id number] D uration Value: 30 Brand Name: prazosin Send Method: E-Prescr ibed Sub s Allowed: subs OK Speci al Instruct ion: TAKE ONE CAPSULE BY MOUTH DAILY AT BEDTIME Medicati onGeneri cName: prazosin Medicat ion ID: [id number] D uration Value: 30 Brand Name: prazosin [...] mg tablet 11/30 completed Medicati on ID: [id number] D uration Value: 30 Brand Name: risperid one Send Method: E-Prescr ibed Sub s Allowed: subs OK Speci al Instruct ion: TAKE ONE TABLET BY MOUTH DAILY AT BEDTIME Medicati onGeneri cName: risperid one Medi cation ID: [id number] D uration Value: 30 Brand Name: risperid [...] mg tablet 08/24 completed Medicati on ID: [id number] Pr escribed By Name: JAMAL Stroud nd Name: Zofran (as hydrochl oride) S end Method: E-Prescr ibed Sub s Allowed: subs OK Speci al Instruct ion: take 1 tablet po Q8 hours as needed for nausea M jp Perezeneric Name: Zofran (as hydrochl oride) Not Available Not Available Not Available lorazepam 0.5 mg tablet 11/30 completed Medicati on ID: [id number] D uration Value: 30 Brand Name: lorazepa m Send Method: E-Prescr ibed Sub s Allowed: subs OK Speci al Instruct ion: TAKE 1/2-1 TABLET DAILY NEEDED FOR ANXIETY AND 1 TABLET DAILY AT BE DTIME FOR SLEEP Me dication GenericN nida: lorazepa m Medica tion ID: [id number] D uration Value: 30 Brand Name: lorazepa [...] single dose 11/30 completed Medicati on ID: [id number] D uration Value: 1 Brand Name: diphenhy dramine HCl Send Method: E-Prescr ibed Sub s Allowed: subs OK Speci al Instruct ion: Take 50mg [address] scan Med icationG enericNa me: diphenhy dramine HCl Medi cation ID: [id number] D uration Value: 1 Brand Name: diphenhy dramine HCl Send Method: E-Prescr ibed Sub s Allowed: subs OK Speci al Instruct ion: Take 50mg [address] scan Med icationG enericNa me: diphenhy dramine HCl Not Available Not Available Not Available fluoxetin e 20 mg tablet 06/10 completed Medicati on ID: [id number] Du ration Value: 30 Reason: () Brand [...] mg tablet 11/30 completed Medicati on ID: [id number] D uration Value: 30 Brand Name: sertrali ne Send Method: E-Prescr ibed Sub s Allowed: subs OK Speci al Instruct ion: TAKE ONE TABLET BY MOUTH DAILY Me dication GenericN nida: sertrali ne Medic ation ID: [id number] D uration Value: 30 Brand Name: sertrali [...] pine ER 300 mg capsule,e xtended release [id number] r 06/11 completed Medicati on ID: [id number] B rand Name: carbamaz epine Se nd Method: E-Prescr ibed Sub s Allowed: subs OK Medic ationGen ericName : carbamaz epine Me dication ID: [id number] B rand Name: carbamaz epine Se nd Method: E-Prescr ibed Sub s Allowed: subs OK Medic ationGen ericName : carbamaz epine Not Available Not Available Not Available omeprazol e 20 mg tablet,de layed release 06/10 completed Medicati on ID: [id number] Du ration Value: 30 Reason: () Brand Name: omeprazo le Send Method: E-Prescr ibed Sub s Allowed: subs OK Medic ationGen ericName : omeprafatou le Not Available Not Available Not Available Vitals Date Recorded Body height Body weight Provider Name and Address Organization Details Last Updated DateTime 07/24/2024 177.8 cm 84600.74 g Deepika Ryder [facility] 07/24/2024 08:11:26 Date Recorded Body height Body mass index (BMI) Body weight Provider Name and Address Organization Details Last Updated DateTime 12/01/2023 177.8 cm 24.4 kg/m2 31417.7 g Deepika Ryder [facility] 12/01/2023 09:27:39 Date Recorded Body height Body mass index (BMI) Body weight Provider Name and Address Organization Details Last Updated DateTime 04/26/2024 177.8 cm 24.4 kg/m2 74552.7 g Su Abreu [facility] 04/26/2024 13:00:54 Date Recorded Body height Body mass index (BMI) Body weight Provider Name and Address Organization Details Last Updated DateTime 06/01/2024 177.8 cm 23.7 kg/m2 02389.74 g Franco Franklin [facility] 06/01/2024 13:36:29 Date Recorded Body height Body weight Provider Name and Address Organization Details Last Updated DateTime 06/11/2024 177.8 cm 97063.74 g Deepika Ryder [facility] Ear No [facility] 06/11/2024 11:49:55 Social History None recorded. Functional Status None recorded. Mental Status None recorded. Family History Nothing Reported. Medical History No medical history recorded. Past Encounters Encounter ID Performer Location Encounter Start Date Encounter Closed Date Diagnosis/Indication Diagnosis SNOMED-CT Code Diagnosis ICD10 Code Diagnosis Note [id number] STEVEN JOSEPH MD [facility] [address] [address] 12/01/2023 08:54:01 12/01/2023 10:45:18 Partial loss of ear ossicles 56825759 H74.322 Left ear continues to remain well-heale [...] left ear. Left condu ctive hearing loss 3298625631 107 H90.12 Audiologic al evaluation results: Right [...] seal}} Impacted c erumen in left ear 7752254132 809198 H61.22 Acquired s tenosis of external ear canal secondary to surgery 27627809 H95.812 The narrowing of the left external [...] on and to make plans going forward. 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 98354060 H95.812 [id number] STEVEN JOSEPH MD [facility] [address] [address] 07/24/2024 08:06:44 07/24/2024 08:27:47 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 67720202 H95.812 Health Concerns Section Related Observation LastModified by Organization Detai ls LastModified Time None Recorded Concern Status LastModified by Organization Details LastModified Time None Recorded Advance Directives Directive None Recorded Payers Insurance Date Sequence Insurance Name Policy Number Policy Mac Covered Member ID Mac Member ID Guarantor Name 07/24/2024 1 [facility] [id number] Jesus Lauren [id number] Jesus Lauren 04/26/2024 2 [place] [facility] Jesus Lauren [id number] Jesus Lauren Notes Date Note Type Note Provider Name and Address Organization Details Recorded Time 12/01/2023 text/html Patient of mine from back in 2005 and 2006 who [...] me for further evaluation. STEVEN JOSEPH MD [address], [address], [facility] - [facility] 12/01/2023 10:43:15 04/26/2024 text/html 33-year-old male [...] debris impaction and infection STEVEN JOSEPH MD [address] [facility],[place] [address], [place], [address], [facility] - [facility] 04/26/2024 14:06:50 06/01/2024 text/html 33-year-old male present status post left meatoplasty with Dr. Joseph on 05/25/2024. Overall he is doing well. Ear pain is improving. Has been fatigued and nauseous. Denies fevers, headache, nasal congestion, and rhinitis. Has been using Ofloxacin BID. FRANCESCO EVANS MD 100 [facility],[place] [address], [place], [address], [place] - [facility] 06/04/2024 08:22:23 06/11/2024 text/html 33-year-old male present status post left meatoplasty on 05/25/2024. No residual pain. No problems with hearing. STEVEN JOSEPH MD [address] [facility],[place] [address], [place], [address], [place] [facility] 06/11/2024 12:37:40 07/24/2024 text/html 33-year-old male present status post left meatoplasty on 05/25/2024. No residual pain. No problems with hearing, in fact thinks the hearing is more consistently improved in general. STEVEN JOSEPH MD [address] [facility],[place] [address], [place], [address], [place] [facility] 07/24/2024 08:28:36
--- OUTSIDE RECORDS SUMMARY | 2024-10-04 09:29 | XMS_ITS | Clinical Summary ---
Author Organization [facility] Address [address] [place] [address] Care Team Providers Care Credit Consultant Name Role Phone Unavailable Primary Care Provider Unavailabl e Surgical History Surgery Date Site/Laterality Comments OTHER SURGICAL HISTORY 06-29 PROCEDURE: HISTORICAL MASTOIDECTOMY; COMMENT: left tympanossiculoplasty left tympanossiculoplasty left tympanossiculoplasty left tympanossiculoplasty ESOPHAGOGASTRODUODENOSCOPY 12/13/13 PROCEDURE: AR ESOPHAGOGASTRODUODENOSCOPY TRANSORAL DIAGNOSTIC; COMMENT: normal, with biopsies [...] risk) for development of celiac disease. Epilepsy ([facility] V24, [facility] V28) 04/29/2016 DX:Epilepsy ([facility]); COMMENT: Follows with neurology of [facility] on carbamazepine Bipolar disorder ([facility] V2 4, [facility] V28) 10/20/2012 DX:Bipolar disorder ([facility]); C OMMENT: On Risperidone, inpatient [...] explosive disorder and mood disorder- in pt [facility] after intentional med ingestion; abilify and [...] Health Maintenance Due Date Last Done Comments DTaP,Tdap,and Td Vaccines (8 - Td or [...]
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
== END 2024-10-04 09:15 | disposition home or self-care (01) ==
LOC: HO.HGS 08:58
PROVIDERS: PCP Physician Assistant; Visit Provider Surgery
DX: K40.90 Unilateral inguinal hernia, without obstruction or gangrene, not specified as recurrent (principal)
CPT/HCPCS: 99024

== ENCOUNTER → 2024-10-04 08:58 | Outpatient (BNVA) | payer OTHER, SELFPAY | PROVIDERS: PCP Physician Assistant; Visit Provider Surgery ==

== ENCOUNTER 2024-11-08 14:54 | Outpatient (AMB) | payer OTHER, SELFPAY ==
--- NOTE | 2024-11-08 14:57 | A.OFFVIS_ITS ---
Vital Signs 11/08/24 15:03 Height 5 ft 10 in Weight 177 lb BMI 25.4 BP 135/85 Blood Pressure Location Lt brachial Position Sitting Pulse 86 Intake Visit Reasons: 1m s/p RIH w/mesh Intake Note: Patient is seen in office for one month follow up visit, post right inguinal hernia. 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 Accompanied by: Self / Same As Patient Allergies bee pollen (BEE STINGS) Allergy (Severe, Verified 11/08/24 15:04) Anaphylaxis gluten (GLUTEN) Allergy (Severe, Verified 11/08/24 15:04) Anaphylaxis Sulfa (Sulfonamide Antibiotics) (SULFA (SULFONAMIDE ANTIBIOTICS)) Allergy (Severe, Verified 11/08/24 15:04) ANAPHYLAXIS benztropine (From Cogentin) Adverse Reaction (Mild, Verified 11/08/24 15:04) Urinary Retention Medication List - Last Reconciled 11/08/24 by Gustavo Estrada MD carbamazepine ER 800 mg PO DAILY@1800 carbamazepine ER 600 mg PO DAILY@0600 epinephrine 0.3 mg IM ONCE PRN ondansetron 4 mg PO Q8H PRN HPI Comments Details: Jesus returns today for final postoperative visit following repair of a right inguinal hernia with mesh. He feels well and denies any ongoing inguinal symptoms. He does feel a slight ridge in the incision but denies any pain associated with this. [facility] Medical History Norovirus Celiac disease Epilepsy Surgical History History of right inguinal hernia repair (09/26/24) History of ear surgery History of laparoscopic appendectomy Hx of brain surgery Hx of colonoscopy History of esophagogastroduodenoscopy (EGD) Family History Mother Hypertension Father Epilepsy Sister No problems noted. Son No problems noted. 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 Physical Exam Const General: no acute distress Nutritional Appearance: well nourished Orientation/consciousness: patient oriented x3 Resp Effort & Inspection: normal respiratory effort, no audible wheezes, no cough and no respiratory distress GI Other: Right inguinal incision is clean, dry, and intact without redness or discharge. No evidence of hernia recurrence or infection. No hernia noted with Valsalva maneuvers. Palpation (GI): Soft to palpation, nontender and no guarding Neuro General: patient oriented x3 Extrem Other: No edema Assessment & Plan Assessment & Plan (1) Reducible right inguinal hernia: Code(s): K40.90 - Unilateral inguinal hernia, without obstruction or gangrene, not specified as recurrent Category: Medical Plan 33-year-old male patient returning 1 month following repair of a right inguinal hernia with mesh. He tolerated the procedure well and his wounds are healing nicely. Examination today reveals no evidence of hernia recurrence or infection. He may resume normal activity without restrictions and should follow up as needed. Coding Level of Care Code Global (78230) Diagnoses Reducible right inguinal hernia K40.90
[2024-11-08 15:03] VITALS: BP 135/85; PULSE 86; BMI 25.4
--- OUTSIDE RECORDS SUMMARY | 2024-11-08 16:13 | XMS_ITS | Data Portability ---
Author Organization [place] - [facility], Allergy Address [address] [place] [address] Care Team Providers Care Assembler Fitter Name Role Phone MCKENZIE KING Primary Care [...] with the contact information for my surgical oncologist. We will begin the scheduling process and see the patient back at the time of surgery. Patient will not require medical clearance from their primary care provider preoperatively. [email or web address] Not available 04/26/2024 14:02:17 06/01/2024 06/01/2024 The [...] he will follow up with his PCP. [email or web address] Not available 06/01/2024 15:37:23 06/11/2024 06/11/2024 The left external auditory meatus is healing well following meatoplasty. Sutures removed. No signs of inflammation or over exuberant scarring. Recommend application of bacitracin ointment to the meatus twice a day for a week, then may discontinue. All water and activity precautions are lifted. Recommend follow-up in 6 weeks for next evaluation. [email or web address] Not available 06/11/2024 12:37:25 07/24/2024 07/24/2024 The left external auditory meatus is healing well following meatoplasty. No signs of inflammation or over exuberant scarring. The canal is widely patent and drum easily visible. Recommend follow-up in 6 months to assess long-term healing result and get updated audiometric testing. [email or web address] Not available 07/24/2024 08:27:39 Plan of Treatment Reminders Order Date Submit Date Provider Last Modified By Organization Details Last Modified Time Details Appointments Establish ed 15 2024 08:45A M STEVEN JOSEPH MD Not available Not available Not available Lab None recorded. Referral None recorded. Procedures None recorded. Surgeries meatoplas ty (SURG) 2023 024 [email or web address] Not available 04/27/2024 08:24:35 Imaging None recorded. Medication Orders ondansetr on 8 mg disintegr ating tablet 2024 025 [id number], [id number] [facility], [place], [address], 06/01/2024 15:27:06 Patient TargetsNo targets recorded. Patient InstructionsNo instructions recorded. Reason for Referral None Reported. Results Created Date Observation Date Name Description Value Unit Range Abnormal Flag Note LastModifiedBy Organization Detail LastModifiedTime 12/01/19 24 audio gram No observ ation record ed. [email or web address] Not Available 11/20 14:17:02 Result Notes None recorded. Problems Name Problem SNOMED Code Status Onset Date Resolution Date Notes Provider Name and Address Organization Details Recorded Time Difficult y speaking Active 2014 Hoarsenes s; Note: Date Diagnosed : 06/28/2014 4:57 PM (784.49) Not Available [facility] 4 02:50:53 Dysphonia 89493251 Active 2014 Other voice and resonance disorders ; Note: Date Diagnosed : 11/14/2014 11:41 AM (R49.8) [mapped from ICD9 code: 784.49] Not Available [facility] 4 02:50:52 Finding of resonance of voice 831723748 Active 2014 Other voice and resonance disorders ; Note: Date Diagnosed : 11/14/2014 11:41 AM (R49.8) [mapped from ICD9 code: 784.49] Not Available [facility] 4 02:50:52 Polyp of vocal cord or larynx 849183677 Active 2014 Vocal cord polyp; Note: Date Diagnosed : 06/28/2014 4:57 PM (478.4) Not Available [facility] 4 02:50:50 Otalgia of left ear 1304871366 Active 2015 Otalgia, left ear; Note: Date Diagnosed : 02/24/2016 10:01 AM (H92.02) Not Available [facility] 4 02:50:49 Disorder of the larynx 67671452 Active 2014 Spastic Dysphonia ; Note: Date Diagnosed : 06/10/2014 9:42 AM (478.79) Not Available [facility] 4 02:50:51 Gastroeso phageal reflux disease without esophagit is 984657460 Active 2014 Esophagea l reflux NOS; Note: Date Diagnosed : 11/14/2014 11:41 AM (K21.9) [mapped from ICD9 code: 530.81] Not Available [facility] 4 02:50:49 Gastroeso phageal reflux disease 324672459 Active 2014 Laryngoph aryngeal reflux; Note: Date Diagnosed : 06/28/2014 4:57 PM (530.81) Not Available [facility] 4 02:50:50 Seizure disorder 564880011 Active 2015 Seizure disorder NOS; Note: Date Diagnosed : 02/24/2016 9:50 AM (G40.909) Not Available [facility] 4 02:50:47 Pain of left temporoma ndibular joint 93190952224 485071 Active 2015 Arthralgi a of left temporoma ndibular joint; Note: Changed from M26.62 to M26.622 (04/01/20 16 3:47 PM) , Date Diagnosed : 6 11:55 AM (M26.62) Not Available [facility] 4 02:50:46 Conductiv e hearing loss 64296109 Active 2015 Conductiv e hearing loss, unilatera l, left ear, with unrestric sana hearing on the contralat eral side; Note: Date Diagnosed : 6 12:14 PM (H90.12) Not Available [facility] 4 02:50:51 Partial loss of ear ossicles 58748798 Active 2023 STEVEN JOSEPH MD [address] [facility] [place], [place], [address] , [place] - [facility] 4 18:13:38 Left conductiv e hearing loss 89098129102 07 Active 2023 STEVEN JOSEPH MD [address] [facility] [place], [place], [address] , [place] - [facility] 4 18:14:09 Impacted cerumen in left ear 01467624269 89038 Active 2023 STEVEN JOSEPH MD [address] [facility] [place] [facility], [place], [address] , [place] - [facility] 4 09:40:21 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 53065774 Active 2023 STEVEN JOSEPH MD [address] [facility] [place], [place], [address] , [place] - [facility] 4 09:41:09 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 Procedures Surgical History Date Name Laterality Status Provider Name and Address Organization Details Recorded Time 04/26/20 24 Cerumen removal with microscope left completed STEVEN JOSEPH MD [address] [place] [address],[place] [address], [place], [address], [facility] - [facility] 04/26/2024 14:03:22 12/01/19 24 Comp Audio with Tymps - 65828 & 40303 completed Piedad Loo [place] - [facility] 12/01/2023 10:08:08 12/01/19 24 Cerumen removal with microscope left completed STEVEN JOSEPH MD [address] [place] [address],[place] [address], [place], [address], [place] - [facility] 12/01/2023 09:40:12 Appendectomy completed Deepika Ryder [place] - [facility] 12/01/2023 09:22:30 procedure on shoulder completed Deepika Ryder [place] - [facility] 12/01/2023 09:22:38 procedure on brain completed Deepika Ryder [place] - [facility] 12/01/2023 09:22:45 Imaging Results None recorded. Procedure Notes None recorded. Medical Equipment None Reported. Allergies Allergen ID Allergen Name Allergen Category Reaction Reaction Severity Criticality Documentation Date Start Date Code Code System Note Provider Name and Address Organization Details Recorded Time 717104 Substance with sulfonami de structure and antibacte rial mechanism of action (substanc e) medicatio n Not available Not available Not available 12/01/2023 62502 8003 SNOMED Deepika almodovar [place] - [facility] 09:19:48 Medications Name Sig Start Date Stop Date Status Note LastModified by Organization Details LastModified Time neomycin- polymyxin -hydrocor t 3.5 mg/mL-10, 000 unit/mL-1 % ear solution INSTILL 5 DROPS INTO THE LEFT EAR EVERY DAY 11/30 completed Not Available Not Available Not Available prazosin 1 mg capsule 11/30 completed Medicati on ID: [id number] D uration Value: 30 Brand Name: prazosin Send Method: E-Prescr ibed Sub s Allowed: subs OK Speci al Instruct ion: TAKE ONE CAPSULE BY MOUTH DAILY AT BEDTIME Medicati onGeneri cName: prazosin Medicat ion ID: [id number] D uration Value: 30 Brand Name: prazosin [...] mg tablet 11/30 completed Medicati on ID: [id number] D uration Value: 30 Brand Name: risperid one Send Method: E-Prescr ibed Sub s Allowed: subs OK Speci al Instruct ion: TAKE ONE TABLET BY MOUTH DAILY AT BEDTIME Medicati onGeneri cName: risperid one Medi cation ID: [id number] D uration Value: 30 Brand Name: risperid [...] mg tablet 08/24 completed Medicati on ID: [id number] Pr escribed By Name: JAMAL Stroud nd Name: Zofran (as hydrochl oride) S end Method: E-Prescr ibed Sub s Allowed: subs OK Speci al Instruct ion: take 1 tablet po Q8 hours as needed for nausea M edicatio nGeneric Name: Zofran (as hydrochl oride) Not Available Not Available Not Available lorazepam 0.5 mg tablet 11/30 completed Medicati on ID: [id number] D uration Value: 30 Brand Name: lorazepa m Send Method: E-Prescr ibed Sub s Allowed: subs OK Speci al Instruct ion: TAKE 1/2-1 TABLET DAILY NEEDED FOR ANXIETY AND 1 TABLET DAILY AT BE DTIME FOR SLEEP Me dication GenericN nida: lorazepa m Medica tion ID: [id number] D uration Value: 30 Brand Name: lorazepa [...] single dose 11/30 completed Medicati on ID: [id number] D uration Value: 1 Brand Name: diphenhy dramine HCl Send Method: E-Prescr ibed Sub s Allowed: subs OK Speci al Instruct ion: Take 50mg [address] scan Med icationG enericNa me: diphenhy dramine HCl Medi cation ID: [id number] D uration Value: 1 Brand Name: diphenhy dramine HCl Send Method: E-Prescr ibed Sub s Allowed: subs OK Speci al Instruct ion: Take 50mg [address] scan Med icationG enericNa me: diphenhy dramine HCl Not Available Not Available Not Available fluoxetin e 20 mg tablet 06/10 completed Medicati on ID: [id number] Du ration Value: 30 Reason: () Brand [...] mg tablet 11/30 completed Medicati on ID: [id number] D uration Value: 30 Brand Name: sertrali ne Send Method: E-Prescr ibed Sub s Allowed: subs OK Speci al Instruct ion: TAKE ONE TABLET BY MOUTH DAILY Me dication GenericN nida: sertrali ne Medic ation ID: [id number] D uration Value: 30 Brand Name: sertrali [...] pine ER 300 mg capsule,e xtended release [id number] r 06/11 completed Medicati on ID: [id number] B rand Name: carbamaz epine Se nd Method: E-Prescr ibed Sub s Allowed: subs OK Medic ationGen ericName : carbamaz epine Me dication ID: [id number] B rand Name: carbamaz epine Se nd Method: E-Prescr ibed Sub s Allowed: subs OK Medic ationGen ericName : carbamaz epine Not Available Not Available Not Available omeprazol e 20 mg tablet,de layed release 06/10 completed Medicati on ID: [id number] Du ration Value: 30 Reason: () Brand Name: omeprazo le Send Method: E-Prescr ibed Sub s Allowed: subs OK Medic ationGen ericName : omeprazo le Not Available Not Available Not Available Vitals Date Recorded Body height Body mass index (BMI) Body weight Provider Name and Address Organization Details Last Updated DateTime 06/01/2024 177.8 cm 23.7 kg/m2 84935.74 g Franco Franklin [facility] 06/01/2024 13:36:29 Date Recorded Body height Body weight Provider Name and Address Organization Details Last Updated DateTime 06/11/2024 177.8 cm 06711.74 g Deepika Ryder [facility] 06/11/2024 11:49:55 Date Recorded Body height Body weight Provider Name and Address Organization Details Last Updated DateTime 07/24/2024 177.8 cm 03973.74 g Deepika Ryder [facility] se [facility] 07/24/2024 08:11:26 Date Recorded Body height Body mass index (BMI) Body weight Provider Name and Address Organization Details Last Updated DateTime 12/01/2023 177.8 cm 24.4 kg/m2 80536.7 g Deepika Ryder [facility] 12/01/2023 09:27:39 Date Recorded Body height Body mass index (BMI) Body weight Provider Name and Address Organization Details Last Updated DateTime 04/26/2024 177.8 cm 24.4 kg/m2 23733.7 g Su Abreu [facility] 04/26/2024 13:00:54 Social History None recorded. Functional Status None recorded. Mental Status None recorded. Family History Nothing Reported. Medical History No medical history recorded. Past Encounters Encounter ID Performer Location Encounter Start Date Encounter Closed Date Diagnosis/Indication Diagnosis SNOMED-CT Code Diagnosis ICD10 Code Diagnosis Note [id number] STEVEN JOSEPH MD [facility] [address] [address] 12/01/2023 08:54:01 12/01/2023 10:45:18 Partial loss of ear ossicles 66879153 H74.322 Left ear continues to remain well-heale [...] left ear. Left condu ctive hearing loss 2375483884 107 H90.12 Audiologic al evaluation results: Right ear: Normal/mil d sloping to moderately severe conductive hearing loss with excellent word recognitio n. Conductive component' s at 1 and 4kHz only. Left ear: Normal hearing with excellent word recognitio n. Tympanomet ry: Right Ear:Type A Left Ear:Type A Impacted c erumen in left ear 9603305721 109476 H61.22 Acquired s tenosis of external ear canal secondary to surgery 41854257 H95.812 The narrowing of the left external [...] on and to make plans going forward. 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 13756226 H95.812 [id number] STEVEN JOSEHP MD [facility] [address] [place] [address] 07/24/2024 08:06:44 07/24/2024 08:27:47 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 16172888 H95.812 Health Concerns Section Related Observation LastModified by Organization Detai ls LastModified Time None Recorded Concern Status LastModified by Organization Details LastModified Time None Recorded Advance Directives Directive None Recorded Payers Insurance Date Sequence Insurance Name Policy Number Policy Mac Covered Member ID Mac Member ID Guarantor Name 07/24/2024 1 [employer] [id number] Jesus Lauren [id number] Jesus Lauren 04/26/2024 2 [place] [facility] Jesus Lauren [id number] Jesus Lauren Notes Date Note Type Note Provider Name and Address Organization Details Recorded Time 12/01/2023 text/html Patient of [facility] from back in 2005 and 2006 who [...] me for further evaluation. STEVEN JOSEPH MD [address] [place] [address], [place], [address], [facility] - [facility] 12/01/2023 10:43:15 04/26/2024 text/html 33-year-old male [...] impaction and infection STEVEN JOSEPH MD [address] [facility] [place],[address] [place] [address], [address], [facility] - [facility] 04/26/2024 14:06:50 06/01/2024 text/html 33-year-old male present status post left meatoplasty with Dr. Joseph on 05/25/2024. Overall he is doing well. Ear pain is improving. Has been fatigued and nauseous. Denies fevers, headache, nasal congestion, and rhinitis. Has been using Ofloxacin BID. FRANCESCO EVANS MD [address] [facility],[address], [address], [facility] - [facility] 06/04/2024 08:22:23 06/11/2024 text/html 33-year-old male present status post left meatoplasty on 05/25/2024. No residual pain. No problems with hearing. STEVEN JOSEPH MD [address] [facility] [place],[address], [address], [facility] 06/11/2024 12:37:40 07/24/2024 text/html 33-year-old male present status post left meatoplasty on 05/25/2024. No residual pain. No problems with hearing, in fact thinks the hearing is more consistently improved in general. STEVEN JOSEPH MD [address] [facility] [place] [address], [address], [facility] - [facility] 07/24/2024 08:28:36
== END 2024-11-08 15:07 | disposition home or self-care (01) ==
PROVIDERS: PCP Physician Assistant; Visit Provider Surgery
DX: K40.90 Unilateral inguinal hernia, without obstruction or gangrene, not specified as recurrent (principal)
CPT/HCPCS: 99024

== ENCOUNTER 2024-12-25 08:25 | Outpatient (AMB) | payer OTHER, SELFPAY ==
--- NOTE | 2024-12-25 08:28 | MHC.OFFVIS ---
Vital Signs 12/25/24 08:36 Height 5 ft 10 in Weight 177 lb BMI 25.4 BP 140/81 H Blood Pressure Location Rt brachial Position Sitting Pulse 84 Intake Visit Reasons: Pain along [facility] surgery site Intake Note: Patient is seen in office for wound check, pain along hernia repair site. Pt c/o: bump under scarline. At times taking tylenol and Ibuprofen for pain. Long Distance Operator Required: No Accompanied by: Self / Same As Patient Allergies bee pollen (BEE STINGS) Allergy (Severe, Verified 12/25/24 08:36) Anaphylaxis gluten (GLUTEN) Allergy (Severe, Verified 12/25/24 08:36) Anaphylaxis Sulfa (Sulfonamide Antibiotics) (SULFA (SULFONAMIDE ANTIBIOTICS)) Allergy (Severe, Verified 12/25/24 08:36) ANAPHYLAXIS benztropine (From Cogentin) Adverse Reaction (Mild, Verified 12/25/24 08:36) Urinary Retention Medication List - Last Reconciled 12/25/24 by Gustavo Estrada MD carbamazepine ER 800 mg PO DAILY@1800 carbamazepine ER 600 mg PO DAILY@0600 epinephrine 0.3 mg IM ONCE PRN ondansetron 4 mg PO Q8H PRN HPI Comments Details: 34-year-old male patient with a previous history of right inguinal hernia repaired using a large PHS mesh on 09/26/2024. Patient reports 2 weeks ago moving a pellet stove and developing pain later that day in the right groin in the region of the previous hernia repair. He noted some swelling especially while in the shower which has decreased over the past week. The pain seems to be localized to the area of the previous surgery. He denies any nausea, vomiting, or bowel changes. [facility] Medical History Norovirus Celiac disease Epilepsy Surgical History History of right inguinal hernia repair (09/26/24) History of ear surgery History of laparoscopic appendectomy Hx of brain surgery Hx of colonoscopy History of esophagogastroduodenoscopy (EGD) Family History Mother Hypertension Father Epilepsy Sister No problems noted. Son No problems noted. 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 Review of Systems Const All systems reviewed & are unremarkable except as noted in HPI and below Physical Exam Const General: healthy appearing Nutritional Appearance: well nourished Orientation/consciousness: patient oriented x3 Resp Effort & Inspection: normal respiratory effort GI Other: Soft and nondistended, well-healed incision in the right groin. Examination in the standing position with Valsalva maneuvers reveals no definite recurrent hernia. There is tenderness in the midportion of the incision especially with Valsalva maneuvers. Neuro General: patient oriented x3 Extrem General: Yes normal to inspection Assessment & Plan Assessment & Plan (1) Right inguinal pain: Code(s): R10.31 - Right lower quadrant pain Category: Medical Plan 34-year-old male patient status post repair of a right inguinal hernia with mesh on 09/26/2024. Two weeks ago while lifting a pellet stove he developed pain in the right groin in his concerned about a recurrent hernia. On examination no definite recurrent hernias identified. I recommended further evaluation with an ultrasound of the right groin to examined for a possible recurrent hernia. I will call him with the results of the study once available. Orders: Orders US pelvic limited Today R10.31 - Right lower quadrant pain Coding Level of Care Code Global (11584) Diagnoses Right inguinal pain R10.31
--- OUTSIDE RECORDS SUMMARY | 2024-12-25 08:35 | XMS_ITS | Encounter Summary ---
Author Organization [facility] Address [address] [place] [address] Care Team Providers Care Building Drafting Officer Name Role Phone Cheryl Velazco MD Primary Care Provider Avelino Lott MD Primary Care Provider [phone] [facility], Pcp Primary Care Provider Kyleigh Tan MD Primary Care Provider Unavail able [facility], Pcp Primary Care Provider Kyleigh Tan MD Primary Care Provider Unavail able [facility], Pcp Primary Care Provider Unavailabl e Encounter Details Date Type Department Care Team Description 05/25/2012 Hospital Medical Records [address] [place] [id number] Man Martínez MD Social History Tobacco Use Types Packs/Day Years Used Date Smoking Tobacco: Never Smokeless Tobacco: Never Alcohol Use Standard Drinks/Week Comments No 0 (1 standard drink = 0.6 oz pur e alcohol) Sex Assigned at Date Recorded Not on file documented as of this encounter Plan of Treatment Not on file documented as of this encounter Visit Diagnoses Not on filedocumented in this encounter Care Teams Building Drafting Officer Relationship Specialty Start Date End Date Cheryl Velazco MD PCP - General 09/07/00 05/08/13 Avelino Hernandez MD [address] [place], [place] [phone] PCP - General Internal Medicine 05/09/13 02/02/16 [facility], Pcp [address] [place] [address] PCP - General Internal Medicine 02/03/16 04/01/16 Kyleigh Paulson MD [address] [place] [address] PCP - General Internal Medicine 04/02/16 05/22/16 [facility], Pcp [address] [place] [address] PCP - General Internal Medicine 05/23/16 07/07/16 Kyleigh Paulson MD [address] [place] [address] PCP - General Internal Medicine 07/08/16 09/09/21 [facility], Pcp [address] [place] [address] PCP - General Internal Medicine 09/10/21 documented as of this encounter
--- OUTSIDE RECORDS SUMMARY | 2024-12-25 08:35 | XMS_ITS | Clinical Summary ---
Author Organization [facility] Address [address] [place] [address] Care Team Providers Care Veterinary Bacteriologist Name Role Phone Unavailable Primary Care Provider Unavailabl e Surgical History Surgery Date Site/Laterality Comments OTHER SURGICAL HISTORY 06-29 PROCEDURE: HISTORICAL MASTOIDECTOMY; COMMENT: left tympanossiculoplasty left tympanossiculoplasty left tympanossiculoplasty left tympanossiculoplasty ESOPHAGOGASTRODUODENOSCOPY 12/13/13 PROCEDURE: IN ESOPHAGOGASTRODUODENOSCOPY TRANSORAL DIAGNOSTIC; COMMENT: normal, with biopsies [...] risk) for development of celiac disease. Epilepsy ([facility] V24, [facility] V28) 04/29/2016 DX:Epilepsy ([facility]); COMMENT: Follows with neurology of [facility] on carbamazepine Bipolar disorder ([facility] V2 4, [facility] V28) 10/20/2012 DX:Bipolar disorder ([facility]); C OMMENT: On Risperidone, inpatient psych in [...] explosive disorder and mood disorder- in pt [facility] after intentional med ingestion; abilify and [...] history exists COVID-19 Vaccine ( season) 2024 Depression Screening 05/23/2024 Influenza Vaccine (#1) 2025 04/18/2017, 1993 Hepatitis B Vaccines Completed 09/28/1993, 01/21/1993, 1992 [...] 5 Years) and At-Risk Patients (6 to 49 Years) Aged Out No longer eligible based on patient's age to complete this topic RSV Immunization Patients Under 20 months Aged Out No longer eligible based on patient's age to complete this topic Varicella Vaccines Aged Out No longer eligible based on patient's age to complete this topic
[2024-12-25 08:36] VITALS: BP 140/81; PULSE 84; BMI 25.4
== END 2024-12-25 08:39 | disposition home or self-care (01) ==
LOC: HO.HGS 08:26
PROVIDERS: PCP Physician Assistant; Visit Provider Surgery
DX: R10.31 Right lower quadrant pain (principal)
CPT/HCPCS: 99024

== ENCOUNTER 2024-12-31 13:32 | Outpatient (AMB) | payer OTHER, SELFPAY ==
[2024-12-31 13:45] VITALS: BP 137/77; PULSE 81; BMI 25.8
--- NOTE | 2024-12-31 13:45 | MHC.OFFVIS ---
Vital Signs 12/31/24 13:45 Height 5 ft 10 in Weight 180 lb BMI 25.8 BP 137/77 Blood Pressure Location Rt brachial Position Sitting Pulse 81 Intake Visit Reasons: pain at hernia site, ER visit at [place] 12/27/24 Intake Note: Patient scheduled today's appointment c/o abdominal pain. Was seen at [place] ER. Abdomen CT: 12-27-2024 Gauge Controller Required: No Accompanied by: Self / Same As Patient Allergies bee pollen (BEE STINGS) Allergy (Severe, Verified 12/31/24 13:46) Anaphylaxis gluten (GLUTEN) Allergy (Severe, Verified 12/31/24 13:46) Anaphylaxis Sulfa (Sulfonamide Antibiotics) (SULFA (SULFONAMIDE ANTIBIOTICS)) Allergy (Severe, Verified 12/31/24 13:46) ANAPHYLAXIS benztropine (From Cogentin) Adverse Reaction (Mild, Verified 12/31/24 13:46) Urinary Retention HPI Comments Details: 34-year-old male patient with a previous history of a right inguinal hernia repair using a large PHS mesh performed on 09/26/2024. She subsequently returned after lifting a pellet stove and developing pain in the right groin. He was previously evaluated on 12/25/2024 and no definite hernia identified on examination. An ultrasound of the right groin was requested to further evaluate the right groin for an occult hernia. The patient subsequently was evaluated on 12/27/2024 at [facility] at which time a CT abdomen and pelvis was performed. This confirmed no evidence of a recurrent hernia in the right groin. He returns today for re-evaluation. He denies any nausea, vomiting, fever, chills or recent bowel changes. FOR[facility]LY [facility], [facility] Medical History Norovirus Celiac disease Epilepsy Surgical History History of right inguinal hernia repair (09/26/24) History of ear surgery History of laparoscopic appendectomy Hx of brain surgery Hx of colonoscopy History of esophagogastroduodenoscopy (EGD) Family History Mother Hypertension Father Epilepsy Sister No problems noted. Son No problems noted. 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 Review of Systems Const All systems reviewed & are unremarkable except as noted in HPI and below Physical Exam Vital Signs: Last Vital Signs Pulse 81 12/31/24 13:45 BP 137/77 12/31/24 13:45 BMI result Body Mass Index 25.8 Const General: healthy appearing Nutritional Appearance: well nourished Orientation/consciousness: patient oriented x3 Resp Effort & Inspection: normal respiratory effort GI Other: Soft and nondistended, well-healed incision in the right groin. Examination in the standing position with Valsalva maneuvers reveals no definite recurrent hernia. There is tenderness in the midportion of the incision especially with Valsalva maneuvers. Neuro General: patient oriented x3 Extrem General: Yes normal to inspection Assessment & Plan Assessment & Plan (1) Muscle strain: Code(s): T14.8XXA - Other injury of unspecified body region, initial encounter Category: Medical Plan 34-year-old male patient returning following recent ER visit for pain in the right groin. Examination reveals no evidence of recurrent hernia with a well-healed incision in the right inguinal region. The patient's pain appears to be higher along the edge of the rectus muscle in his most consistent with a muscle strain from his recent heavy lifting. I recommended continued rest and relaxation to avoid further injury to the rectus muscle. He should follow up in 1 month. Coding Level of Care Code Est Pt Level 3 (79712) Diagnoses Muscle strain T14.8XXA
== END 2024-12-31 14:20 | disposition home or self-care (01) ==
LOC: HO.HGS 13:33
PROVIDERS: PCP Physician Assistant; Visit Provider Surgery
DX: T14.8XXA Other injury of unspecified body region, initial encounter (principal)
CPT/HCPCS: 99213